=== PATIENT | female | born 1995 | race Caucasian/White ===

== ENCOUNTER 2020-12-12 12:16 | Emergency (ER) | payer BC, SELFPAY ==
[2020-12-12 12:25] VITALS: BP 109/65; PULSE 90; RESP 18; TEMP 37.1; O2SAT 97; BMI 24.7
[2020-12-12 12:56] LABS: Apearance,Urine Cloudy (Clear); Color,Urine Dark Yellow (Yellow); PH,Urine 5.5 (5.0-8.5)
[2020-12-12 12:57] LABS: Bilirubin,Urine Negative (Negative); Blood, Urine 2+ (Negative); Glucose,Urine (UA) Negative (Negative); Ketones,Urine Negative (Negative); Protein,Urine 1+ (Negative); Specific Gravity, Urine 1.015 (1.005-1.030); UTC Leukocyte Esterase,Urine 1+ (Negative); UTC Nitrate,Urine Positive (Negative); Urobilinogen,Urine 0.2 EU/dl (0.2)
--- NOTE | 2020-12-12 13:05 | HMH.EDUTC ---
[facility] [place] Clinical Impression: UTI (urinary tract infection) Qualifiers: Urinary tract infection type: site unspecified Hematuria presence: with hematuria Qualified Code(s): N39.0 - Urinary tract infection, site not specified Disposition: Home, Self-Care Condition on Discharge: Good Instructions: Urinary Tract Infection, DI for Urinary Tract Infection (UTI) Additional Instructions: Drink plenty of fluids. Take tylenol or ibuprofen for pain or fever. Take the medications as directed. Follow up with your regular doctor. GO TO THE ER FOR ANY WORSENING SYMPTOMS The pyridium will make your urine turn orange, this is an expected side effect. It will stain your clothes if it comes into contact with them. Prescriptions: Nitrofurantoin Monohyd/M-Cryst [Macrobid 100 mg Capsule] 100 mg PO BID 5 Days #10 cap Transmission Status: Received by [facility] Phenazopyridine HCl [Pyridium 200mg Tablet] 200 pow PO TID #6 tab Transmission Status: Received by [facility] Ondansetron [Zofran 4mg ODT] 4 mg PO DAILYP PRN #12 tab PRN Reason: Nausea Transmission Status: Received by [facility] Referrals: Provider,Referral, [Primary Care Provider] - Time of Disposition: 13:16 Medical Decision Making - Medical Records Medical records reviewed: No: I reviewed the patient's medical records. - Caio Inquiry Pt receiving controlled substance: No Vital Signs: 12/12/20 12:25 12/12/20 13:18 Temperature 98.8 F 98.8 F Temperature Source Oral Pulse Rate 90 Pulse Rate [Right Brachial] 90 Respiratory Rate 18 18 Blood Pressure 109/65 L Blood Pressure [Right Arm] 109/65 L Blood Pressure Mean [Right Arm] 79 Blood Pressure Source [Right Arm] Automatic Cuff Blood Pressure Position [Right Arm] Sitting 02 Sat by Pulse Oximetry 97 Oxygen Delivery Method Room Air - Lab Data Lab results reviewed: Yes: I reviewed the patient's lab results. Lab Results 12/12/20 12:43: Urine Color Dark yellow, Urine Appearance Cloudy, Urine pH 5.5, Ur Specific [place] 1.015, Urine Protein 1+, Urine Glucose (UA) Negative, Urine Ketones Negative, Urine Blood 2+, Urine Nitrate Positive A, Urine Bilirubin Negative, Urine Urobilinogen 0.2, Ur Leukocyte Esterase 1+ A Orders (Tests/Meds): ORDERS Category Date Time Status Urine Culture Stat Micro 12/12/20 12:30 Received [facility] HPI - General Stated complaint: rt sided back pain, possible kidney infection Time Seen by Provider: 12/12/20 13:05 Mode of Arrival: Ambulatory Source of Information: Patient Limitations: No Limitations Description of Symptoms (Recalled from Triage Doc. by RN): PATIENT C/O RIGHT FLANK/SIDE PAIN THAT STARTED LAST NIGHT AND IS WORSE TODAY HEENT Symptoms (Recalled from RN notes): No Resp Symptoms (Recalled from RN notes): No Skin Symptoms (Recalled from RN notes): No MS Symptoms (Recalled from RN notes): No Functional Status (Recalled from RN notes): WNL - History of Present Illness Provider Complaint: She states that since last night she had had right sided low back pain, burning with urination, and urinary frequency for the past 1 day. She has a history of getting uti's occasionally. - Related Data Previous Rx's Medication Instructions Recorded Nitrofurantoin Monohyd/M-Cryst 100 mg PO BID 5 Days #10 cap 12/12/20 [Macrobid 100 mg Capsule] Ondansetron [Zofran 4mg ODT] 4 mg PO DAILYP PRN #12 tab 12/12/20 Phenazopyridine HCl [Pyridium 200 pow PO TID #6 tab 12/12/20 200mg Tablet] Allergies Allergy/AdvReac Type Severity Reaction Status Date / Time sulfamethoxazole Allergy Verified 12/12/20 13:21 [From Bactrim] trimethoprim [From Bactrim] Allergy Verified 12/12/20 13:21 aspirin AdvReac Verified 12/22/17 08:29 - Worker's Comp Is this a Worker's Comp case?: No [facility] History - Hepatitis A Screen Drug use history?: No High risk sexual behaviors?: No History of sexually transmi
[2020-12-12 13:18] VITALS: BP 109/65; PULSE 90; RESP 18; TEMP 37.1; O2SAT 97
== END 2020-12-12 13:30 | disposition home or self-care (01) ==
PROVIDERS: Emergency Provider Nurse Practitioner Family
DX: N30.00 Acute cystitis without hematuria (principal); B96.20 Unspecified Escherichia coli [E. coli] as the cause of diseases classified elsewhere; Z88.2 Allergy status to sulfonamides
CPT/HCPCS: 81003; 87086; 87088; 87186; 99202; G0463

== ENCOUNTER 2020-12-13 14:16 | Emergency (ER) | payer BC, SELFPAY ==
[2020-12-13 14:18] VITALS: BP 105/73; PULSE 120; RESP 16; TEMP 37.2; O2SAT 95; BMI 24.7
--- NOTE | 2020-12-13 14:35 | HMH.EDGENADL ---
ED Disposition Clinical Impression: UTI (urinary tract infection) Qualifiers: Urinary tract infection type: acute pyelonephritis Qualified Code(s): N10 - Acute pyelonephritis Ovarian cyst Qualifiers: Laterality: right Qualified Code(s): N83.201 - Unspecified ovarian cyst, right side Disposition: Home, Self-Care Condition on Discharge: Good Additional Instructions: Discontinue Macrobid/nitrofurantoin. Take Cipro as directed. Follow with PCP in 1 to 2 days. Return emergency department fever, worsening abdominal pain Prescriptions: Ciprofloxacin HCl [Cipro 500mg Tab] 500 mg PO BID #10 tab Transmission Status: Pending to [facility] Referrals: Provider,Referral, [Primary Care Provider] - Time of Disposition: 17:34 - Critical Care Critical Care Time: No Attestation: On , the high probability of a clinically significant, sudden or life threatening deterioration of the following system(s) required my full and direct attention, intervention and personal management. The time I documented below is in addition to time spent performing reported procedures but includes the following listed in this critical care notation. Medical Decision Making - Medical Records Medical records reviewed: Yes: I reviewed the patient's medical records. - Caio Inquiry Pt receiving controlled substance: No Vital Signs: 12/13/20 14:18 12/13/20 15:00 Temperature 98.9 F Temperature Source Oral Pulse Rate 106 H Pulse Rate [Right] 120 H Respiratory Rate 16 20 Blood Pressure 107/74 L Blood Pressure [Right Arm] 105/73 L Blood Pressure Mean [Right Arm] 83 Blood Pressure Source [Right Arm] Automatic Cuff Blood Pressure Position [Right Arm] Sitting 02 Sat by Pulse Oximetry 95 96 Oxygen Delivery Method Room Air - Lab Data Lab results reviewed: Yes: I reviewed the patient's lab results. Lab Results 12/13/20 14:10: WBC 11.9 H, RBC 4.77, Hgb 14.9, Hct 45.3, MCV 94.9, MCH 31.2, MCHC 32.9, RDW 13.2, Plt Count 208, MPV 9.2, Neut % (Auto) 83.4 H, Lymph % (Auto) 9.4 L, [place] % (Auto) 6.1, Eos % (Auto) 0.7, Baso % (Auto) 0.5, Neut # (Auto) 9.9 H, Lymph # (Auto) 1.1, [place] # (Auto) 0.7, Eos # (Auto) 0.1, Baso # (Auto) 0.1 12/13/20 14:10: Sodium 139, Potassium 3.9, Chloride 101, Carbon Dioxide 29, Anion Gap 12.9, BUN 10, Creatinine 0.60, Estimated Creat Clear 139, Estimated GFR 122, Est GFR ( Amer) 147, Glucose 107 H, Calcium 9.6, Total Bilirubin 0.7, AST 33, ALT 34, Alkaline Phosphatase 108, Total Protein 8.2, Albumin 4.6, Globulin 3.6 H, Albumin/Globulin Ratio 1.3 12/13/20 14:33: Urine HCG, Qual Negative 12/13/20 14:33: Urine Color [place], Urine Appearance Sl cloudy, Urine pH 5.5, Ur Specific [place] 1.020, Urine Protein Trace, Urine Glucose (UA) Negative, Urine Ketones Negative, Urine Blood 2+, Urine Nitrate Positive, Urine Bilirubin Negative, Urine Urobilinogen 1.0, Ur Leukocyte Esterase 1+ A, Urine RBC 5-10, Urine WBC 5-10, Ur Squamous Epith Cells 5-10, Urine Bacteria 1+, Urine Mucus 1+ Result diagrams: 12/13/20 14:10 12/13/20 14:10 Orders (Tests/Meds): ED MEDICATIONS Generic Name Dose Route Start Last Admin Trade Name Freq PRN Reason Stop Dose Admin Ceftriaxone Sodium 1 gm/ 50 mls @ 100 mls/hr 12/13/20 14:45 12/13/20 14:53 Sodium Chloride IV 12/27/20 14:44 100 mls/hr Q24H KRISTY Administration Discontinued Medications Generic Name Dose Route Start Last Admin Trade Name Freq PRN Reason Stop Dose Admin Lactated Ringer's 1,000 mls @ 999 mls/hr 12/13/20 14:45 Lactated Ringer's 1000 Ml Bag IV 12/13/20 15:45 .Q1H1M KRISTY Sodium Chloride 1,000 mls @ 999 mls/hr 12/13/20 14:45 12/13/20 14:52 Sod Chlor 0.9% 1000ml Bag IV 12/13/20 15:45 999 mls/hr .Q1H1M KRISTY Administration Ketorolac Tromethamine 15 mg 12/13/20 14:37 12/13/20 14:52 Ketorolac 30mg/Ml Vial IV 12/13/20 14:38 15 mg ONCE ONE Administration ORDERS Category Date Time Status US transvaginal Stat Exa
[2020-12-13 14:38] LABS: Microscopic, Urine URINE MICROSCOPIC (MICROSCOPIC)
[2020-12-13 14:43] LABS: Appearance,Urine SL CLOUDY (Clear); Bilirubin,Urine Negative (Negative); Blood, Urine 2+ (Negative); Color,Urine ORANGE (Yellow); Glucose,Urine (UA) Negative (Negative); Ketones,Urine Negative (Negative); Leukocyte Esterase,Urine 1+ (Negative); Nitrate,Urine POSITIVE (Negative); PH,Urine 5.5 (5.0-8.5); Protein,Urine TRACE (Negative)
[2020-12-13 14:53] LABS: Basophils # 0.1 K/mm3 (0-0.2); Basophils % 0.5 % (0.1-2.0); Eosinophils # 0.1 K/mm3 (0.0-0.4); Eosinophils % 0.7 % (0.1-12.0); Hematocrit 45.3 % (37.0-47.0); Hemoglobin 14.9 g/dL (12.2-16.2); Lymphocytes # 1.1 K/mm3 (0.7-4.5); Lymphocytes % 9.4 % (10-50); Mean Corpuscular HGB Conc 32.9 g/dL (31.8-35.4); Mean Corpuscular Hemoglobin 31.2 pg (27.0-31.2); Mean Corpuscular Volume 94.9 fl (81-99); Mean Platelet Volume 9.2 fl (7.4-10.4); Monocytes # 0.7 K/mm3 (0.1-1.0); Monocytes % 6.1 % (1.7-9.3); Neutrophils # 9.9 K/mm3 (1.8-7.8); Neutrophils % 83.4 % (37.0-80.0); Platelet Count 208 K/mm3 (142-424); Red Blood Count 4.77 M/mm3 (4.20-5.40); Red Cell Distribution Width 13.2 % (11.5-17.5); White Blood Count 11.9 K/mm3 (4.8-10.8)
[2020-12-13 15:00] VITALS: BP 107/74; PULSE 106; RESP 20; O2SAT 96
[2020-12-13 15:07] LABS: Bacteria,Urine 1+ /lpf; Mucus,Urine 1+ /lpf; Urine Pregnancy, HCG Qual. Negative (Negative)
[2020-12-13 15:13] LABS: Chloride 101 mmol/L (98-107); Potassium 3.9 mmoL/L (3.5-5.1); Sodium 139 mmol/L (136-145)
[2020-12-13 15:16] LABS: Alanine Aminotransferase 34 U/L (12-78); Albumin Level 4.6 g/dl (3.5-5.0); Albumin/Globulin Ratio 1.3 (1.1-1.8); Alkaline Phosphatase 108 U/L (38-126); Anion Gap 12.9 mEq/L (5-15); Aspartate Amino Transferase 33 U/L (14-36); Bilirubin,Total 0.7 mg/dl (0.2-1.3); Blood Urea Nitrogen 10 mg/dl (7-17); Carbon Dioxide 29 mmol/L (22.0-30.0); Creatinine Clearance Estimated 139 mL/min (50-200); Estimated Glomerular Filt Rate 122 ml/min (>60); GFR (African American) 147 ML/MIN (>60); Globulin 3.6 g/dL (1.3-3.2); Total Protein,Serum 8.2 g/dl (6.3-8.2)
[2020-12-13 15:17] LABS: Calcium 9.6 mg/dl (8.4-10.2); Glucose 107 mg/dl (74-100)
--- NOTE | 2020-12-13 15:23 | CT_ITS ---
PROCEDURE: CT ABDOMEN PELVIS WO CON CLINICAL INDICATION: R flank pain Right flank pain with fever COMPARISON: CT ABDPELW/O CT ABD PELVIS W/O CONTRAST from 09/19/2016 TECHNIQUE: Axial images obtained with sagittal and coronal reformats. All CT scans at the facility use one or more dose reduction, viz: automated exposure control, ma/kV adjustment per patient size (including targeted exams where dose is matched to indication, i.e. head), or iterative reconstruction technique. FINDINGS: LOWER THORAX: No acute finding ABDOMEN & PELVIS: Mild fatty liver. Prior cholecystectomy. No biliary dilatation. The spleen, adrenal glands, pancreas, and left kidney has an unremarkable appearance. There is mild prominence of the right renal pelvis. No ureteral calculus evident. No calculi within the urinary bladder. The No intestinal obstruction or free air. There is a mild amount of retained colonic feces. No evidence of appendicitis. There are few scattered small mesenteric lymph nodes. There is a small umbilical hernia containing fat. There is a 5 x 3.3 cm mass in the right adnexal region. This may be ovarian in nature. Pelvic ultrasound may provide further evaluation. Uterus is somewhat enlarged at 10 x 6 cm. There is a left ovarian cyst at 2.6 cm. No cul-de-sac fluid is evident. Pars defect is present at L5 without spondylolisthesis. IMPRESSION: 1. No renal or ureteral calculi. There is minimal prominence of the right renal collecting system 2. 5 x 3 cm right adnexal mass possibly due to enlarged ovary. Suggest correlation with pelvic ultrasound. Ovarian torsion is not excluded. 3. Generous uterus. 2.6 cm left ovarian cyst. Dictated by: Clint Bonner MD 12/13/2020 16:17 Clint Bonner MD in [place] 12/13/2020 16:17
--- NOTE | 2020-12-13 16:54 | US_ITS ---
PROCEDURE INFORMATION: Exam: US Pelvis, Transvaginal Exam date and time: 12/13/2020 4:54 PM Age: 25 years old Clinical indication: Prior surgery; Surgery date: 6+ months; Surgery type: ; Patient HX: Right pelvic pain; Patient had a CT scan today with abnormal finding of right ovary; Additional info: Swollen ovary, R/O torsion TECHNIQUE: Imaging protocol: Real-time transvaginal pelvic ultrasound with image documentation. Transvaginal imaging was used for better evaluation of the endometrium, adnexa, and/or cervix. COMPARISON: TVP US TRANSVAGINAL PREG 05/22/2015 6:16 AM FINDINGS: Uterus/cervix: Appearance within normal limits. The uterus measures 8.6 x 4.3 x 5.8 cm. Endometrium is about 6 mm in thickness. Right adnexa: Right ovary measures 4. 9 x 2.1 x 3.2 cm. This is inclusive of fairly simple appearing cyst measuring 3.1 x 1.2 by 2.2 cm. Normal color flow in the right ovary. Left adnexa: The left ovary has a normal appearance. It measures 2.2 x 1.8 by 2.3 cm. Normal color flow. Intraperitoneal space: No free fluid. IMPRESSION: No acute pathology. A 3.1 cm cyst on the right ovary explains the CT findings.
--- NOTE | 2020-12-13 16:59 | PC.NURSE ---
Pt going to US
[2020-12-13 17:45] VITALS: BP 117/72; PULSE 102; RESP 20; TEMP 37.2; O2SAT 99
== END 2020-12-13 17:45 | disposition home or self-care (01) ==
PROVIDERS: Emergency Provider Family Medicine
DX: N10 Acute pyelonephritis (principal); N83.201 Unspecified ovarian cyst, right side; Z88.2 Allergy status to sulfonamides; Z88.6 Allergy status to analgesic agent; Z87.891 Personal history of nicotine dependence
CPT/HCPCS: 74176; 76830; 80053; 81001; 81025; 85025; 87086; 96365; 96375; 99283

== ENCOUNTER 2022-09-18 21:04 | Emergency (ER) | payer BC, SELFPAY ==
[2022-09-18 21:06] VITALS: BP 127/76; PULSE 74; RESP 18; TEMP 36.9; O2SAT 98; BMI 27.6
[2022-09-18 21:30] VITALS: BP 117/70; PULSE 61; RESP 18; O2SAT 99
--- NOTE | 2022-09-18 21:33 | HMH.EDGENADL ---
Discharge Plan Disposition Patient Disposition: Home, Self-Care Condition: Fair Prescriptions Prescriptions: New erythromycin 5 mg/gram (0.5 %) ointment 1 applic ophthalmic (eye) BID Qty: 50 0RF oxycodone-acetaminophen [Percocet] 5-325 mg tablet 1 tab PO Q6H PRN (Reason: pain) Qty: 7 0RF No Action ciprofloxacin HCl 500 MG tablet 500 mg PO BID Qty: 10 0RF phenazopyridine 200 MG tablet 200 pow PO TID Qty: 6 0RF ondansetron 4 MG tablet,disintegrating 4 mg PO DAILYP PRN (Reason: Nausea) Qty: 12 0RF nitrofurantoin monohyd/m-cryst 100 MG capsule 100 mg PO BID 5 Days Qty: 10 0RF Referrals Follow up/Referrals: Provider,Referral, MD [Primary Care Provider] - See instructions (Please see lucas moreno for further evaluation and treatment) Clinical Impressions Clinical Impression: Photokeratitis of both eyes Stand Alone Forms Stand Alone Forms: Work/School Release Instructions Patient Instructions: DI for Eye Pain Print Language Print Language: Occitan Discharge ED Provider: Chino Camejo General Adult HPI General Chief complaint: Eye Problems Stated complaint: eye pain Time Seen by Provider: 09/18/22 21:33 Mode of Arrival: Wheelchair Limitations: No Limitations Description of Symptoms (Recalled from ER Triage Doc. by RN): pt states that she is having severe pain in her eyes. pt states the pain is a 8/10 and feels like sand paper in her eyes. 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 The patient woke up at 8 PM and reported severe pain in bilateral eyes complaint: eye pain Location: eyes Severity: moderate Quality: burning Relieving factors: none Exacerbating factors: other (Light) Related Data Previous Rx's Medication Instructions Recorded nitrofurantoin 100 mg PO BID 5 days #10 caps 12/12/20 monohydrate/macrocrystals 100 mg capsule ondansetron 4 mg disintegrating 4 mg PO DAILYP PRN Nausea #12 tabs 12/12/20 tablet phenazopyridine 200 mg tablet 200 pow PO TID #6 tabs 12/12/20 ciprofloxacin HCl 500 mg tablet 500 mg PO BID #10 tabs 12/13/20 erythromycin 5 mg/gram (0.5 %) eye 1 applic ophthalmic (eye) BID #50 09/18/22 ointment grams oxycodone-acetaminophen 5 mg-325 1 tab PO Q6H PRN pain #7 tabs 09/18/22 mg tablet (Percocet) Allergies Allergy/AdvReac Type Severity Reaction Status Date / Time sulfamethoxazole Allergy Verified 12/12/20 13:21 [From Bactrim] trimethoprim [From Bactrim] Allergy Verified 12/12/20 13:21 aspirin AdvReac Verified 12/22/17 08:29 PFSH PFS Disclaimer: The information contained in this section may have been updated after the patient was seen, as this information can be updated by other users. Social History Smoking Status: Unknown if ever smoked alcohol intake: never current occupational status: employed Travel in the last 8 weeks: None ROS Obtained: Yes Systems reviewed as appropriate & no additional complaints except as documented Physical Exam General General appearance: alert and in no apparent distress Eye Eye exam: Present EOMI and conjunctival injection Expanded Eye Exam Comment: I did a Colon lamp exam and did not visualize any significant uptake ENT ENT exam: Present normal exam Respiratory Respiratory exam: Absent respiratory distress Cardiovascular Cardiovascular exam: Present other (No edema) Extremities Exam Extremities exam: Present normal inspection Neurological Exam Neurological exam: Absent motor sensory deficit Psychiatric Psychiatric exam: Present normal affect and
--- NOTE | 2022-09-18 21:43 | PC.NURSE ---
Visual Acuity completed 20/40 on both eyes
--- NOTE | 2022-09-18 21:52 | PC.NURSE ---
in room talking with patient at this time.
[2022-09-18 22:00] VITALS: BP 118/64; PULSE 65; RESP 20; O2SAT 98
[2022-09-18 22:30] VITALS: BP 104/59; PULSE 71; RESP 16; O2SAT 97
[2022-09-18 22:43] VITALS: BP 109/63; PULSE 75; RESP 17; TEMP 36.7; O2SAT 99
== END 2022-09-18 22:45 | disposition home or self-care (01) ==
PROVIDERS: Emergency Provider Emergency Medicine
DX: H16.133 Photokeratitis, bilateral (principal)
CPT/HCPCS: 99283; 99284

== ENCOUNTER 2022-10-18 20:37 | Emergency (ER) | payer BC, SELFPAY ==
--- NOTE | 2022-10-18 20:33 | ECG_ITS ---
APPROVED REPORT Exam: Resting ECG HR:70 bpm ECG Measurements Heart Rate 70 AXES DC 138 P 53 QRSd 75 QRS 92 QT 365 T 52 QTc 386 Conclusion SINUS RHYTHM BORDERLINE RIGHT AXIS DEVIATION [QRS AXIS > 90] BORDERLINE ECG UNCONFIRMED REPORT Electronically signed by : Tadeo Huertas MD 10/19/2022 17:18:15
[2022-10-18 20:37] VITALS: BP 113/70; PULSE 75; RESP 16; TEMP 36.6; O2SAT 97; BMI 25.6
[2022-10-18 20:40] VITALS: BP 108/70; PULSE 74; RESP 14; O2SAT 96
[2022-10-18 21:01] VITALS: BP 101/63; PULSE 74; RESP 18; O2SAT 98
--- NOTE | 2022-10-18 21:15 | XR_ITS ---
PROCEDURE INFORMATION: Exam: XR Chest Exam date and time: 10/18/2022 9:19 PM Age: 26 years old Clinical indication: Sternal or substernal pain; Additional info: Chest pain TECHNIQUE: Imaging protocol: Radiologic exam of the chest. Views: 1 view. COMPARISON: CT ABDOMEN PELVIS WO CON 12/13/2020 3:33 PM FINDINGS: Lungs: Unremarkable. No consolidation. Pleural spaces: Unremarkable. No pleural effusion. No pneumothorax. Heart/Mediastinum: Unremarkable. No cardiomegaly. Bones/joints: Unremarkable. Soft tissues: There are bilateral nipple piercings in place. IMPRESSION: No acute findings.
--- NOTE | 2022-10-18 21:18 | HMH.EDGENADL ---
Discharge Plan Disposition Patient Disposition: Home, Self-Care Condition: Good Chief Complaint: Chest Pain Prescriptions Prescriptions: No Action ciprofloxacin HCl 500 MG tablet 500 mg PO BID Qty: 10 0RF erythromycin 5 mg/gram (0.5 %) ointment 1 applic ophthalmic (eye) BID Qty: 50 0RF oxycodone-acetaminophen [Percocet] 5-325 mg tablet 1 tab PO Q6H PRN (Reason: pain) Qty: 7 0RF phenazopyridine 200 MG tablet 200 pow PO TID Qty: 6 0RF ondansetron 4 MG tablet,disintegrating 4 mg PO DAILYP PRN (Reason: Nausea) Qty: 12 0RF nitrofurantoin monohyd/m-cryst 100 MG capsule 100 mg PO BID 5 Days Qty: 10 0RF Referrals Follow up/Referrals: Provider,MD Saulo [Primary Care Provider] - See instructions Tadeo Huertas MD [Staff Physician] - See instructions Activity Restrictions/Add. Instructions Additional Instructions/Restrictions: At this time is felt you are safe to be discharged home. If new or worsening symptoms please do not hesitate to return the emergency department. Please call Dr. Huertas's office to establish care as soon as you are able. Clinical Impressions Clinical Impression: Chest pain, Weakness Discharge ED Provider: Christ Watters General Adult HPI General Chief complaint: Chest Pain Stated complaint: CP Time Seen by Provider: 10/18/22 21:06 Mode of Arrival: Ambulatory Source of Information: Patient Limitations: No Limitations Description of Symptoms (Recalled from ER Triage Doc. by RN): Pt ambulatory to ED via POV. C/O chest pain beginning this AM. 5/10 pain. Sharp pain midsternal causing SOA. Rest does not help. Patient chronic vape user. No caffeine intake in 4 months History of Present Illness HPI narrative: Patient is a 26-year-old female with no pertinent past medical history presents emergency department for evaluation of chest pain and weakness. Onset was acute, occurring approximately 12. Substernal, does not radiate. There is associated global weakness. Denies cough, fevers, sick contacts, dysuria. Patient is on her menstrual cycle and passing clots which is not abnormal for her symptoms her tubes removed . Denies vomiting. No other acute complaints at this time. Related Data Previous Rx's Medication Instructions Recorded nitrofurantoin 100 mg PO BID 5 days #10 caps 12/12/20 monohydrate/macrocrystals 100 mg capsule ondansetron 4 mg disintegrating 4 mg PO DAILYP PRN Nausea #12 tabs 12/12/20 tablet phenazopyridine 200 mg tablet 200 pow PO TID #6 tabs 12/12/20 ciprofloxacin HCl 500 mg tablet 500 mg PO BID #10 tabs 12/13/20 erythromycin 5 mg/gram (0.5 %) eye 1 applic ophthalmic (eye) BID #50 09/18/22 ointment grams oxycodone-acetaminophen 5 mg-325 1 tab PO Q6H PRN pain #7 tabs 09/18/22 mg tablet (Percocet) Allergies Allergy/AdvReac Type Severity Reaction Status Date / Time sulfamethoxazole Allergy Verified 12/12/20 13:21 [From Bactrim] trimethoprim [From Bactrim] Allergy Verified 12/12/20 13:21 aspirin AdvReac Verified 12/22/17 08:29 PFSH PFS Disclaimer: The information contained in this section may have been updated after the patient was seen, as this information can be updated by other users. Social History (Updated 09/18/22 @ 22:54 by Chino Camejo MD) Smoking Status: Current every day smoker tobacco type: cigarettes alcohol intake: never current occupational status: employed Travel in the last 8 weeks: None ROS Obtained: Yes Systems reviewed as appropriate & no additional complaints except as documented Physical Exam General General appearance: alert and in no apparent distress Head Head exam: atraumatic and normocephalic Eye Eye exam: Present PERRL and EOMI ENT ENT exam: Present mucous membranes moist Neck Neck exam: Present normal inspection Chest Chest inspection: Present normal inspection and symmetric chest wall rise Respiratory Respiratory exam: Present normal lung sounds bilaterally; Absent re
[2022-10-18 21:24] LABS: Basophils # 0.1 K/mm3 (0-0.2); Basophils % 0.6 % (0.1-2.0); Eosinophils # 0.1 K/mm3 (0.0-0.4); Eosinophils % 1.2 % (0.1-12.0); Hematocrit 41.9 % (37.0-47.0); Hemoglobin 13.3 g/dL (12.2-16.2); Lymphocytes # 2.5 K/mm3 (0.7-4.5); Lymphocytes % 29.2 % (10-50); Mean Corpuscular HGB Conc 31.8 g/dL (31.8-35.4); Mean Corpuscular Hemoglobin 28.4 pg (27.0-31.2); Mean Corpuscular Volume 89.3 fl (81-99); Mean Platelet Volume 9.2 fl (7.4-10.4); Monocytes # 0.4 K/mm3 (0.1-1.0); Monocytes % 5.3 % (1.7-9.3); Neutrophils # 5.4 K/mm3 (1.8-7.8); Neutrophils % 63.8 % (37.0-80.0); Platelet Count 241 K/mm3 (142-424); Red Blood Count 4.69 M/mm3 (4.20-5.40); Red Cell Distribution Width 14.4 % (11.5-17.5); White Blood Count 8.4 K/mm3 (4.8-10.8)
[2022-10-18 21:25] LABS: Chloride 103 mmol/L (98-107); Potassium 3.9 mmoL/L (3.5-5.1); Sodium 140 mmol/L (136-145)
[2022-10-18 21:28] LABS: Alanine Aminotransferase 44 U/L (12-78); Albumin Level 4.3 g/dl (3.5-5.0); Albumin/Globulin Ratio 1.4 (1.1-1.8); Alkaline Phosphatase 99 U/L (38-126); Anion Gap 14.9 mEq/L (5-15); Aspartate Amino Transferase 37 U/L (14-36); Bilirubin,Total 0.3 mg/dl (0.2-1.3); Blood Urea Nitrogen 11 mg/dl (7-17); Calcium 9.9 mg/dl (8.4-10.2); Carbon Dioxide 26 mmol/L (22.0-30.0); Creatinine Clearance Estimated 122 mL/min (50-200); Estimated Glomerular Filt Rate 101 ml/min (>60); GFR (African American) 122 ML/MIN (>60); Globulin 3.1 g/dL (1.3-3.2); Glucose 119 mg/dl (74-100); Magnesium 1.9 mg/dl (1.6-2.3); Total Protein,Serum 7.4 g/dl (6.3-8.2)
[2022-10-18 21:33] VITALS: BP 104/66; PULSE 80; O2SAT 94
[2022-10-18 21:47] LABS: HCG Qualitative, Serum Negative (Negative)
[2022-10-18 21:48] LABS: Troponin I < 0.01 ng/ml (0.00-0.034)
[2022-10-18 22:18] VITALS: BP 106/70; PULSE 72; RESP 16; TEMP 36.6
== END 2022-10-18 22:23 | disposition home or self-care (01) ==
PROVIDERS: Emergency Provider Emergency Medicine
DX: R07.9 Chest pain, unspecified (principal); R06.02 Shortness of breath; R53.1 Weakness; F17.210 Nicotine dependence, cigarettes, uncomplicated
CPT/HCPCS: 71045; 80053; 83735; 84484; 84703; 85025; 93005; 93041; 99285

== ENCOUNTER → 2022-12-26 23:37 | Outpatient (CLI) | payer BC, SELFPAY ==
[2022-12-26 17:13] LABS: Adenovirus,PCR Not Detected (NotDetected); Coronavirus 229E Not Detected (NotDetected); Coronavirus NL63 Not Detected (NotDetected); Coronavirus OC43 Not Detected (NotDetected); Coronovirus HKU1,PCR Not Detected (NotDetected); Human Metapneumovirus Not Detected (NotDetected); Rhinovirus/Enterovirus Not Detected (NotDetected)
[2022-12-26 17:14] LABS: Coronavirus 19, PCR Not Detected (NotDetected); Influenza A, PCR Not Detected (NotDetected); Influenza AH1, 2009 Not Detected (NotDetected); Influenza AH1, PCR Not Detected (NotDetected); Influenza AH3,PCR Not Detected (NotDetected); Influenza B, PCR Not Detected (NotDetected); Parainfluenza 1, PCR Not Detected (NotDetected); Parainfluenza 2, PCR Not Detected (NotDetected); Parainfluenza 3, PCR Not Detected (NotDetected); Parainfluenza 4, PCR Not Detected (NotDetected); Respiratory Syncytial Virus Not Detected (NotDetected)
== END ==
PROVIDERS: PCP Internal Medicine; Visit Provider Internal Medicine
DX: R05.9 Cough, unspecified (principal); R09.81 Nasal congestion; R51.9 Headache, unspecified
CPT/HCPCS: 87581; 87632; 87635; 87798

== ENCOUNTER 2023-06-19 13:01 | Emergency (ER) | payer BC, SELFPAY ==
[2023-06-19 13:35] VITALS: BP 105/65; PULSE 84; RESP 18; TEMP 36.6; O2SAT 99; BMI 28.5
--- NOTE | 2023-06-19 13:36 | ED_ITS ---
Discharge Plan Disposition Patient Disposition: Home, Self-Care Condition: Good Prescriptions Prescriptions: New azithromycin [Zithromax] 250 mg tablet 250 mg PO UD DOSE PK Qty: 6 0RF Rx Instructions: Take two (2) tablets today, then one (1) tablet days #2 thru #5 [id number] [Bromfed DM] 2-30-10 mg/5 mL Syrup 5 ml PO Q6H PRN (Reason: Cough) Qty: 240 0RF dicyclomine 20 mg tablet 20 mg PO TID PRN (Reason: abdominal pain) Qty: 30 0RF No Action fexofenadine [Allergy Relief (fexofenadine)] 180 mg tablet 180 mg PO DAILY Qty: 30 0RF Referrals Follow up/Referrals: Katherin Morris DO [Primary Care Provider] - See instructions Activity Restrictions/Add. Instructions Additional Instructions/Restrictions: Drink plenty of fluids. Take tylenol or ibuprofen for pain or fever. Take the medications as directed. Follow up with your regular doctor. 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 GO TO THE ER FOR ANY WORSENING SYMPTOMS Clinical Impressions Clinical Impression: Pharyngitis, Sinusitis, Abdominal cramps, Amenorrhea Stand Alone Forms Stand Alone Forms: Work/School Release Instructions Patient Instructions: Sinusitis, DI for Sinusitis Discharge ED Provider: Magdaleno Arita [facility] General Stated complaint: sore throat, stomach pain, no period in 4 mths Time Seen by Provider: 06/19/23 13:36 History of Present Illness Provider Complaint: She states that for the past 3 days she has had sore throat and gi upset. She also states that she has not had period for the past 4 months. She denies because she has history of tubal ligectomy. Related Data Previous Rx's Medication Instructions Recorded fexofenadine 180 mg tablet 180 mg PO DAILY #30 tabs 12/26/22 (Allergy Relief (fexofenadine)) azithromycin 250 mg tablet 250 mg PO UD DOSE PK #6 tabs 06/19/23 (Zithromax) [id number]-[id number]-[id number] 5 ml PO Q6H PRN Cough #240 mL 06/19/23 2 mg-30 mg-10 mg/5 mL oral syrup (Bromfed DM) dicyclomine 20 mg tablet 20 mg PO TID PRN abdominal pain 06/19/23 #30 tabs Allergies Allergy/AdvReac Type Severity Reaction Status Date / Time sulfamethoxazole Allergy Verified 06/19/23 13:48 [From Bactrim] trimethoprim [From Bactrim] Allergy Verified 06/19/23 13:48 aspirin AdvReac Verified 06/19/23 13:48 PFSH [facility] Disclaimer: The information contained in this section may have been updated after the patient was seen, as this information can be updated by other users. Surgical History History of 3 sections History of bilateral salpingectomy Hx of cholecystectomy Family History Other Cancer Social History Smoking Status: Current every day smoker tobacco type: e-cigarettes alcohol intake: never substance use type: denies use current occupational status: unemployed Travel in the last 8 weeks: None ROS Obtained: Yes All systems reviewed & no additional complaints except as documented Constitutional Constitutional: Reports chills and Reports fever(s) Eyes Eyes: Denies eye discharge ENT Ears, Nose, Mouth, and Throat: Reports as per HPI Cardiovascular Cardiovascular: Denies chest pain Respiratory Respiratory: Denies chest congestion and Reports cough Gastrointestinal Gastrointestingal: Reports nausea; Denies abdominal pain, constipation, cramping, diarrhea or vomiting Musculoskeletal Musculoskeletal: Denies arthralgias Integumentary/Breasts Skin/Breast: Denies rash Neurologic Neurologic: Denies paresthesias Physical Exam General General appearance: alert and in no apparent distress Head Head exam: atraumatic, normocephalic and normal inspection Eye Eye exam: Present normal appearance, PERRL and EOMI ENT ENT exam: Present mucous membranes moist and normal external ear exam Expanded ENT Exam TM/Canal exam: Bilateral TM: erythema and bulging Nose exam: Absent sinus tenderness Mouth exam: Present normal external inspection; Absent drooling Teeth exam: Present normal inspection Throat exam: Present tonsillar erythema, tonsillomegaly and tonsillar exudate Neck Neck exam: Present normal inspection, full ROM and trachea midline; Absent tenderness, meningismus or lymphadenopathy Chest Chest inspection: Present normal inspection and symmetric chest wall rise; Absent tenderness Respiratory Respiratory exam: Present normal lung sounds bilaterally; Absent respiratory distress, wheezes, stridor or accessory muscle use Cardiovascular Cardiovascular exam: Present regular rate and normal rhythm; Absent systolic murmur or diastolic murmur Abdominal Exam Abdominal exam: Present soft and normal bowel sounds; Absent distention, tenderness, guarding, rebound or rigidity Extremities Exam Extremities exam: Present normal inspection and normal capillary refill; Absent calf tenderness Back Exam Back exam: Present normal inspection and full ROM; Absent tenderness, CVA tenderness (R) or CVA tenderness (L) Neurological Exam Neurological exam: Present alert, oriented X3 and CN II-XII intact Psychiatric Psychiatric exam: Present normal affect and normal mood Skin Skin exam: Present warm, dry, intact and normal color Medical Decision Making Medical Records Medical records reviewed: No I reviewed the patient's medical records. Caio Padilla Pt receiving controlled substance: No Lab Data Lab results reviewed: Yes I reviewed the patient's lab results. 06/19/23 14:23 06/19/23 14:23
[2023-06-19 14:07] LABS: UTC Pregnancy Test, Urine Negative (Negative)
[2023-06-19 14:08] LABS: UTC Influenza A Antigen Negative (Negative); UTC Influenza B Antigen Negative (Negative); UTC Strep Screen (Rapid) Negative (Negative)
--- NOTE | 2023-06-19 14:25 | PC.NURSE ---
Sent blood to lab via tube
[2023-06-19 14:33] LABS: Basophils # 0.1 K/mm3 (0-0.2); Basophils % 1.6 % (0.1-2.0); Eosinophils # 0.2 K/mm3 (0.0-0.4); Eosinophils % 2.2 % (0.1-12.0); Hemoglobin 15.2 g/dL (12.2-16.2); Lymphocytes % 25.5 % (10-50); Mean Corpuscular HGB Conc 31.6 g/dL (31.8-35.4); Mean Corpuscular Hemoglobin 30.1 pg (27.0-31.2); Mean Corpuscular Volume 95.5 fl (81-99); Monocytes # 0.5 K/mm3 (0.1-1.0); Monocytes % 6.6 % (1.7-9.3); Neutrophils # 5.1 K/mm3 (1.8-7.8); Neutrophils % 64.1 % (37.0-80.0); Platelet Count 220 K/mm3 (142-424); Red Blood Count 5.03 M/mm3 (4.20-5.40); Red Cell Distribution Width 13.9 % (11.5-17.5)
[2023-06-19 14:37] LABS: Chloride 105 mmol/L (98-107); Sodium 139 mmol/L (136-145)
[2023-06-19 14:40] LABS: Alanine Aminotransferase 73 U/L (12-78); Alkaline Phosphatase 88 U/L (38-126); Amylase 90 U/L (30-110); Aspartate Amino Transferase 62 U/L (14-36); Bilirubin,Total 0.7 mg/dl (0.2-1.3); Blood Urea Nitrogen 9 mg/dl (7-17); Calcium 9.9 mg/dl (8.4-10.2); Carbon Dioxide 28 mmol/L (22.0-30.0); Creatinine Clearance Estimated 153 mL/min (50-200); Estimated Glomerular Filt Rate 120 ml/min (>60); GFR (African American) 145 ML/MIN (>60); Glucose 125 mg/dl (74-100); Lipase 51 U/L (23-300)
[2023-06-19 14:41] LABS: Albumin Level 4.4 g/dl (3.5-5.0); Albumin/Globulin Ratio 1.3 (1.1-1.8); Globulin 3.3 g/dL (1.3-3.2); Total Protein,Serum 7.7 g/dl (6.3-8.2)
[2023-06-19 15:21] LABS: HCG Qualitative, Serum Negative (Negative)
[2023-06-19 15:56] VITALS: BP 105/65; PULSE 84; RESP 18; TEMP 36.6; O2SAT 99
== END 2023-06-19 15:56 | disposition home or self-care (01) ==
PROVIDERS: Emergency Provider Nurse Practitioner Family; PCP Student in an Organized Health Care Education/Training Program
DX: J02.9 Acute pharyngitis, unspecified (principal); R10.819 Abdominal tenderness, unspecified site; J01.90 Acute sinusitis, unspecified; R11.0 Nausea; N91.2 Amenorrhea, unspecified; F17.290 Nicotine dependence, other tobacco product, uncomplicated
CPT/HCPCS: 80053; 81025; 82150; 83690; 84703; 85025; 87804; 87880; 99212; 99214; G0463

== ENCOUNTER 2023-07-03 16:58 | Outpatient (CLI) | payer BC, SELFPAY ==
[2023-07-03 13:36] LABS: Hemoglobin A1C 5.7 % (4.0-6.0)
[2023-07-03 13:44] LABS: Free T4 (Free Thyroxine) 0.66 ng/dl (0.78-2.19)
[2023-07-03 14:56] LABS: Thyroid Stimulating Hormone 4.67 uIU/mL (0.465-4.68)
[2023-07-04 10:42] LABS: HIV Screen 4th Generation wRfx Non Reactive (Non Reactive)
[2023-07-04 12:12] LABS: Rapid Plasma Reagin Ab Titer Non Reactive titer (NonRea<1:1)
[2023-07-05 10:10] LABS: Hepatitis B Surface Antigen Negative; Hepatitis C Antibody Non Reactive
== END 2023-07-03 23:59 | disposition home or self-care (01) ==
LOC: LAB.DROPOF 16:59
PROVIDERS: Obstetrics & Gynecology; PCP Internal Medicine; Visit Provider Internal Medicine
DX: R53.83 Other fatigue (principal); R73.9 Hyperglycemia, unspecified; Z11.3 Encounter for screening for infections with a predominantly sexual mode of transmission; Z13.1 Encounter for screening for diabetes mellitus
CPT/HCPCS: 83036; 84439; 84443; 86593; 86703; 87340; 87380; G0432

== ENCOUNTER 2023-10-09 02:28 | Emergency (ER) | payer BC, SELFPAY ==
[2023-10-09 02:30] VITALS: BP 143/116; PULSE 71; RESP 18; TEMP 36.6; O2SAT 97; BMI 23.6
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
[2023-10-09] MEDS: cephALEXin 500MG CAPSULE 500 MG PO (02:46)
[2023-10-09] MEDS: BACITRACIN OINT 0.9GM UDP 1 EACH TP (02:46)
[2023-10-09 02:55] VITALS: BP 143/116; PULSE 71; RESP 18; TEMP 36.6; O2SAT 97
== END 2023-10-09 02:57 | disposition home or self-care (01) ==
LOC: ER 02:47
PROVIDERS: Emergency Provider Emergency Medicine; PCP Internal Medicine
DX: T22.112A Burn of first degree of left forearm, initial encounter (principal); X15.8XXA Contact with other hot household appliances, initial encounter
CPT/HCPCS: 99283

== ENCOUNTER 2023-10-10 16:50 | Outpatient (CLI) | payer BC, SELFPAY ==
[2023-10-10 16:41] LABS: Microscopic, Urine URINE MICROSCOPIC (MICROSCOPIC)
[2023-10-10 16:59] LABS: Basophils # 0.1 K/mm3 (0-0.2); Eosinophils # 0.1 K/mm3 (0.0-0.4); Eosinophils % 1.2 % (0.1-12.0); Hematocrit 43.6 % (37.0-47.0); Hemoglobin 14.5 g/dL (12.2-16.2); Lymphocytes # 2.3 K/mm3 (0.7-4.5); Lymphocytes % 30.8 % (10-50); Mean Corpuscular HGB Conc 33.3 g/dL (31.8-35.4); Mean Corpuscular Hemoglobin 31.2 pg (27.0-31.2); Mean Corpuscular Volume 93.6 fl (81-99); Monocytes # 0.5 K/mm3 (0.1-1.0); Monocytes % 6.3 % (1.7-9.3); Neutrophils # 4.6 K/mm3 (1.8-7.8); Neutrophils % 60.6 % (37.0-80.0); Platelet Count 221 K/mm3 (142-424); Red Blood Count 4.66 M/mm3 (4.20-5.40); Red Cell Distribution Width 13.7 % (11.5-17.5); White Blood Count 7.6 K/mm3 (4.8-10.8)
[2023-10-10 17:06] LABS: Appearance,Urine CLEAR (Clear); Bilirubin,Urine Negative (Negative); Blood, Urine 2+ (Negative); Color,Urine YELLOW (Yellow); Glucose,Urine (UA) Negative (Negative); Ketones,Urine Negative (Negative); Leukocyte Esterase,Urine Negative (Negative); Nitrate,Urine Negative (Negative); Protein,Urine Negative (Negative); Specific Gravity, Urine >= 1.030 (1.005-1.030); Urobilinogen,Urine 0.2 EU/dl (0.2)
[2023-10-10 17:18] LABS: Bacteria,Urine 2+ /lpf; Mucus,Urine 1+ /lpf
[2023-10-10 17:29] LABS: Alanine Aminotransferase 69 U/L (12-78); Albumin Level 4.5 g/dl (3.5-5.0); Albumin/Globulin Ratio 1.5 (1.1-1.8); Alkaline Phosphatase 85 U/L (38-126); Anion Gap 13.1 mEq/L (5-15); Aspartate Amino Transferase 48 U/L (14-36); Bilirubin,Total 0.5 mg/dl (0.2-1.3); Blood Urea Nitrogen 11 mg/dl (7-17); Calcium 9.4 mg/dl (8.4-10.2); Carbon Dioxide 24 mmol/L (22.0-30.0); Chloride 106 mmol/L (98-107); Chol/HDL Ratio 4.8 (1-3.5); Cholesterol 177 mg/dl (140-200); Estimated Glomerular Filt Rate 120 ml/min (>60); GFR (African American) 145 ML/MIN (>60); Globulin 3.1 g/dL (1.3-3.2); Glucose 96 mg/dl (74-100); HDL Cholesterol 37 mg/dl (40-60); Potassium 4.1 mmoL/L (3.5-5.1); Sodium 139 mmol/L (136-145); Total Protein,Serum 7.6 g/dl (6.3-8.2); Triglycerides 148 mg/dl (30-150); VLDL Cholesterol 30 mg/dL (0-40)
[2023-10-10 17:31] LABS: 25-OH Vitamin D, Total 42.5 ng/mL (30-100)
[2023-10-10 17:40] LABS: Direct LDL Cholesterol 112.23 mg/dL (100-129)
[2023-10-10 17:45] LABS: Free T4 (Free Thyroxine) 0.72 ng/dl (0.78-2.19)
[2023-10-10 18:00] LABS: Thyroid Stimulating Hormone 6.49 uIU/mL (0.465-4.68)
[2023-10-10 18:19] LABS: Vitamin B12 744 pg/mL (239-931)
[2023-10-10 21:30] LABS: Iron 80 ug/dL (37-170)
[2023-10-10 21:44] LABS: Total Iron Binding Capacity 308 ug/dL (265-497)
[2023-10-10 22:04] LABS: Ferritin 43.6 ng/ml (6.24-137)
[2023-10-10 22:29] LABS: Hemoglobin A1C 5.4 % (4.0-6.0)
[2023-10-12 12:12] LABS: Thyroid Peroxidase Antibodies 19 IU/mL (0-34)
== END 2023-10-10 23:59 | disposition home or self-care (01) ==
LOC: LAB.DROPOF 16:51
PROVIDERS: PCP Nurse Practitioner Family; Visit Provider Nurse Practitioner Family
DX: R53.83 Other fatigue (principal); Z13.220 Encounter for screening for lipoid disorders; R73.03 Prediabetes; E03.9 Hypothyroidism, unspecified; N92.6 Irregular menstruation, unspecified
CPT/HCPCS: 80050; 80053; 80061; 81001; 82306; 82607; 82728; 83036; 83540; 83550; 84439; 84443; 85025; 86376; 87086

== ENCOUNTER 2023-10-18 09:41 | Outpatient (CLI) | payer BC, SELFPAY ==
--- NOTE | 2023-10-18 09:46 | US_ITS ---
FINAL REPORT TECHNIQUE: Sonographic images of the thyroid were obtained. CLINICAL HISTORY: dysphagia, hypothyroid FINDINGS: The right lobe of the thyroid measures 50 mm. The left lobe of the thyroid measures 42 mm. The isthmus measures 4 mm. There is a heterogeneous echotexture to the thyroid with multinodular appearance, may represent thyroiditis or goiter. No well-defined separate mass or nodule is identified. IMPRESSION: Findings may represent thyroiditis versus goiter. Reviewed, Interpreted and Dictated by Shun Hurd III, MD Transcribed by Susanna Obando Authenticated and [facility]
--- NOTE | 2023-10-18 09:46 | XR_ITS ---
FINAL REPORT CLINICAL HISTORY: left shoulder pain FINDINGS: Left shoulder Three views were obtained. There is no acute fracture or dislocation. The joint spaces appear normal. No soft tissue abnormality is identified. IMPRESSION: No acute process. Reviewed, Interpreted and Dictated by Shun Hurd III, MD Transcribed by Susanna Obando Authenticated and [facility]
--- NOTE | 2023-10-18 09:46 | XR_ITS ---
FINAL REPORT CLINICAL HISTORY: cervical pain FINDINGS: CERVICAL SPINE Five views demonstrate no acute fracture. The disc spaces are well preserved. There is straightening of the cervical spine which is nonspecific but may be due to positioning or muscle spasm. The alignment is normal. IMPRESSION: No acute process. Reviewed, Interpreted and Dictated by Shun Hurd III, MD Transcribed by Susanna Obando Authenticated and [facility]
[2023-10-18 11:36] LABS: HCG,Quantitative < 2 mIU/ml (0-5.42)
[2023-10-19 08:55] LABS: Prolactin 7.6 ng/mL (4.8-33.4)
== END 2023-10-18 23:59 | disposition home or self-care (01) ==
LOC: RAD 09:41
PROVIDERS: Obstetrics & Gynecology; PCP Nurse Practitioner Family; Visit Provider Nurse Practitioner Family
DX: M25.512 Pain in left shoulder (principal); M54.2 Cervicalgia; R13.10 Dysphagia, unspecified; E03.9 Hypothyroidism, unspecified; N91.1 Secondary amenorrhea
CPT/HCPCS: 36415; 72040; 73030; 76536; 84146; 84702

== ENCOUNTER 2023-11-21 14:06 | Outpatient (CLI) | payer BC, SELFPAY ==
--- NOTE | 2023-11-21 14:11 | XR_ITS ---
FINAL REPORT CLINICAL HISTORY: dyspnea chest pain started yesterday COMPARISON: 10/18/2022 FINDINGS: Two views of the chest were obtained. The heart size and pulmonary vascularity are within normal limits. The mediastinum is normal. No acute pulmonary abnormality is identified. There is no pneumothorax. The bony thorax is intact. IMPRESSION: No active cardiopulmonary disease. Reviewed, Interpreted and Dictated by Shun Hurd III, MD Transcribed by Susanna Obando Authenticated and [facility]
[2023-11-21 17:52] LABS: Thyroid Stimulating Hormone 5.69 uIU/mL (0.465-4.68)
== END 2023-11-21 23:59 | disposition home or self-care (01) ==
LOC: RAD 14:08
PROVIDERS: PCP Nurse Practitioner Family; Visit Provider Nurse Practitioner Family
DX: R06.00 Dyspnea, unspecified (principal); E03.9 Hypothyroidism, unspecified; N39.0 Urinary tract infection, site not specified
CPT/HCPCS: 71046; 84439; 84443; 87086

== ENCOUNTER 2023-11-22 19:09 | Emergency (ER) | payer BC, SELFPAY ==
--- NOTE | 2023-11-22 19:07 | ECG_ITS ---
APPROVED REPORT Exam: Resting ECG HR:71 bpm ECG Measurements Heart Rate 71 AXES TN 131 P 41 QRSd 81 QRS 92 QT 366 T 18 QTc 388 Conclusion SINUS RHYTHM BORDERLINE RIGHT AXIS DEVIATION [QRS AXIS > 90] BORDERLINE ECG UNCONFIRMED REPORT Electronically signed by : STEVE SHAFER, 11/25/2023 04:29:46
[2023-11-22 19:10] VITALS: BP 121/75; PULSE 68; RESP 18; TEMP 36.9; O2SAT 95; BMI 28.1
[2023-11-22 19:15] VITALS: PULSE 68
[2023-11-22 19:30] VITALS: BP 126/77; PULSE 82; RESP 23; O2SAT 98
--- NOTE | 2023-11-22 19:40 | XR_ITS ---
PROCEDURE INFORMATION: Exam: XR Chest Exam date and time: 11/22/2023 7:41 PM Age: 28 years old Clinical indication: Dyspnea TECHNIQUE: Imaging protocol: Radiologic exam of the chest. Views: 1 view. COMPARISON: CR XR CHEST 2V 11/21/2023 2:16 PM FINDINGS: Lungs: Unremarkable. No consolidation. Pleural spaces: Unremarkable. No pleural effusion. No pneumothorax. Heart/Mediastinum: Unremarkable. No cardiomegaly. Bones/joints: Unremarkable. IMPRESSION: No acute findings.
--- NOTE | 2023-11-22 19:42 | HMH.EDCP ---
Discharge Plan Disposition Patient Disposition: Home, Self-Care Prescriptions Prescriptions: No Action nitrofurantoin monohyd/m-cryst [Macrobid] 100 mg capsule 100 mg PO Q12H 7 Days Qty: 14 0RF Rx Instructions: must administer with a meal/food famotidine 20 mg tablet See Rx Instructions .ROUTE .COMPLEX Qty: 180 0RF Dose Instruction: TAKE 1 TABLET BY MOUTH TWICE A DAY Rx Instructions: TAKE 1 TABLET BY MOUTH TWICE A DAY levothyroxine 25 mcg tablet 25 mcg PO QAM Qty: 90 0RF Referrals Follow up/Referrals: Cr Orellana DO [Primary Care Provider] - See instructions Activity Restrictions/Add. Instructions Additional Instructions/Restrictions: No evidence of acute cardiopulmonary emergency please follow with your primary care doctor may take Tylenol and ibuprofen as needed for your symptoms and return with any significant worsening or different symptoms. Clinical Impressions Clinical Impression: Atypical chest pain Print Language Print Language: Slovenian Discharge ED Provider: Pollo Harrell [facility] General Chief Complaint: Chest Pain Stated Complaint: chest pain Time Seen by Provider: 11/22/23 19:11 Mode of Arrival: Ambulatory Source of Information: Patient Limitations: No Limitations Description of Symptoms (Recalled from ER Triage Doc. by RN): pt reports two days ago she began having chest tightness and numbness in her left arm, she was seen to get xrays yesterday but has no recieved her results yet. pt states the chest tightness has not resolved. History of Present Illness HPI narrative: Patient is a 28-year-old previously healthy female presents today with left anterior chest discomfort. Located in the superior lateral aspect of her chest no radiation no exertional symptoms she does states she has had some very mild dyspnea no pleuritic component to this no positional aspect no nausea associated with this. No history of coronary artery disease pulmonary embolism DVT etc. no lower extremity swelling hemoptysis fevers chills cough etc. She states that she has been trying to stop vaping and feels as though her body may be stressed out from this. Symptoms have been ongoing for more than 48 hours. Related Data Previous Rx's ?Medication ?Instructions ?Recorded famotidine 20 mg tablet See Rx Instructions .Route 10/17/23 .COMPLEX #180 tabs nitrofurantoin 100 mg PO Q12H 7 days #14 caps 11/21/23 monohydrate/macrocrystals 100 mg capsule (Macrobid) levothyroxine 25 mcg tablet 25 mcg PO QAM #90 tabs 11/22/23 Allergies Allergy/AdvReac Type Severity Reaction Status Date / Time sulfamethoxazole Allergy Verified 11/21/23 13:12 [From Bactrim] trimethoprim [From Bactrim] Allergy Verified 11/21/23 13:12 aspirin AdvReac Verified 11/21/23 13:12 [facility] Disclaimer: The information contained in this section may have been updated after the patient was seen, as this information can be updated by other users. Medical History Chest pain Weakness Pharyngitis Upper respiratory infection Abdominal cramps Sinusitis Fatigue Surgical History History of bilateral salpingectomy Hx of cholecystectomy History of 3 sections Family History Other Cancer Social History Smoking Status: Current every day smoker tobacco type: e-cigarettes alcohol intake: never substance use type: denies use current occupational status: unemployed Travel in the last 8 weeks: None ROS Obtained: Yes All systems reviewed & no additional complaints except as documented Physical Exam General General appearance: alert and in no apparent distress Respiratory Respiratory exam: Present normal lung sounds bilaterally; Absent respiratory distress Cardiovascular Cardiovascular exam: Present regular rate and normal rhythm Neurological Exam Neurological exam: Present alert and oriented X3 HEART Score HEART Score HEART Score assessment performed?: Yes History (anamnesis): Slightly suspicious ECG: Non-specific disturbance Age: <45 years Risk factors: No known risk factors Troponin: </= normal limit HEART Score: 1 Critical Care Critical Care Time Critical Care Time: No Medical Decision Making Caio Inquiry Pt receiving controlled substance: No Vital Signs Vital Signs: 11/22/23 19:10 11/22/23 19:15 11/22/23 19:30 Temperature 98.4 F Temperature Source Oral Pulse Rate 68 82 Pulse Rate [Right] 68 Respiratory Rate 18 23 Blood Pressure 126/77 Blood Pressure [Right Arm] 121/75 Blood Pressure Mean [Right Arm] 90 02 Sat by Pulse Oximetry 95 98 Oxygen Delivery Method Room Air 11/22/23 20:00 11/22/23 20:30 Temperature Temperature Source Pulse Rate 67 68 Pulse Rate [Right] Respiratory Rate 24 21 Blood Pressure 100/70 L 116/64 Blood Pressure [Right Arm] Blood Pressure Mean [Right Arm] 02 Sat by Pulse Oximetry 95 94 L Oxygen Delivery Method Lab Data Lab results reviewed: Yes I reviewed the patient's lab results. Labs: Lab Results 11/22/23 19:12: WBC 9.6, RBC 4.72, Hgb 14.2, Hct 45.4, MCV 96.2, MCH 30.2, MCHC 31.4 L, RDW 13.9, Plt Count 230, MPV 9.1, Neut % (Auto) 62.4, Lymph % (Auto) 28.7, [place] % (Auto) 7.3, Eos % (Auto) 0.7, Baso % (Auto) 0.8, Neut # (Auto) 6.0, Lymph # (Auto) 2.8, [place] # (Auto) 0.7, Eos # (Auto) 0.1, Baso # (Auto) 0.1, D-Dimer 0.25, Sodium 139, Potassium 3.8, Chloride 105, Carbon Dioxide 28, Anion Gap 9.8, BUN 11, Creatinine 0.60, Estimated Creat Clear 149, Estimated GFR 119, Est GFR ( Amer) 144, Glucose 72 L, Calcium 9.1, Total Bilirubin 0.5, AST 42 H, ALT 60, Alkaline Phosphatase 94, Troponin I < 0.01, Total Protein 7.7, Albumin 4.6, Globulin 3.1, Albumin/Globulin Ratio 1.5 11/22/23 19:12 11/22/23 19:12 Response Orders (Tests/Meds): ED MEDICATIONS Discontinued Medications Generic Name Dose Route Start Last Admin Trade Name Freq PRN Reason Stop Dose Admin Ketorolac Tromethamine 15 mg 11/22/23 19:39 11/22/23 19:48 Ketorolac 30mg/Ml Vial IV 11/22/23 19:40 15 mg ONCE ONE Administration ORDERS Category Date Time Status CXR --portable [XR chest portable] Stat Exams 11/22/23 19:40 Completed CBC w/Auto Diff [Complete Blood Count Auto Diff] Stat Lab 11/22/23 19:12 Completed CMP [Comprehensive Metabolic Panel] Stat Lab 11/22/23 19:12 Completed D-Dimer Stat Lab 11/22/23 19:12 Completed Trop I [Troponin I] Stat Lab 11/22/23 19:12 Completed Troponin I Q3H Lab 11/22/23 22:45 Ordered Troponin I Q3H Lab 11/23/23 01:45 Ordered ECG Data Tracing #1: Attestation: I reviewed this ECG and interpreted as documented below: ECG Narrative: Ventricular rate of 71 no acute ischemic changes noted indeterminate axis no significant duction abnormalities noted borderline right axis deviation MDM Narrative Medical Decision Narrative: 28-year-old well-appearing female presents today with mild dyspnea and left anterior chest discomfort. EKG is unremarkable does have borderline right axis deviation. Will obtain a D-dimer to rule out pulmonary embolism use years criteria with a cutoff of 1.[address] a CT PE. Chest x-ray and single troponin will be performed and no serial troponins will be needed given the onset of her symptoms being 48 hours ago. Chest x-ray performed to person interpreted which shows no acute cardiopulmonary emergency. Labs unremarkable D-dimer less than 1 [place] undetectably low reassessment patient feeling somewhat better no emergent medical condition events she was discharged in stable condition with advised to follow-up with primary care doctor.
[2023-11-22 19:45] LABS: Basophils # 0.1 K/mm3 (0-0.2); Basophils % 0.8 % (0.1-2.0); Eosinophils # 0.1 K/mm3 (0.0-0.4); Eosinophils % 0.7 % (0.1-12.0); Hematocrit 45.4 % (37.0-47.0); Hemoglobin 14.2 g/dL (12.2-16.2); Lymphocytes # 2.8 K/mm3 (0.7-4.5); Lymphocytes % 28.7 % (10-50); Mean Corpuscular HGB Conc 31.4 g/dL (31.8-35.4); Mean Corpuscular Hemoglobin 30.2 pg (27.0-31.2); Mean Corpuscular Volume 96.2 fl (81-99); Mean Platelet Volume 9.1 fl (7.4-10.4); Monocytes # 0.7 K/mm3 (0.1-1.0); Monocytes % 7.3 % (1.7-9.3); Neutrophils % 62.4 % (37.0-80.0); Platelet Count 230 K/mm3 (142-424); Red Blood Count 4.72 M/mm3 (4.20-5.40); Red Cell Distribution Width 13.9 % (11.5-17.5); White Blood Count 9.6 K/mm3 (4.8-10.8)
[2023-11-22] MEDS: KETOROLAC 30MG/ML VIAL 15 MG IV (19:48)
[2023-11-22 20:00] VITALS: BP 100/70; PULSE 67; RESP 24; O2SAT 95
[2023-11-22 20:01] LABS: D-Dimer 0.25 ug/mL (0.0-0.5)
[2023-11-22 20:16] LABS: Albumin Level 4.6 g/dl (3.5-5.0); Chloride 105 mmol/L (98-107)
[2023-11-22 20:17] LABS: Potassium 3.8 mmoL/L (3.5-5.1); Sodium 139 mmol/L (136-145)
[2023-11-22 20:19] LABS: Anion Gap 9.8 mEq/L (5-15); Blood Urea Nitrogen 11 mg/dl (7-17); Carbon Dioxide 28 mmol/L (22.0-30.0); Creatinine Clearance Estimated 149 mL/min (50-200); Estimated Glomerular Filt Rate 119 ml/min (>60); GFR (African American) 144 ML/MIN (>60)
[2023-11-22 20:20] LABS: Alanine Aminotransferase 60 U/L (12-78); Albumin/Globulin Ratio 1.5 (1.1-1.8); Alkaline Phosphatase 94 U/L (38-126); Aspartate Amino Transferase 42 U/L (14-36); Bilirubin,Total 0.5 mg/dl (0.2-1.3); Calcium 9.1 mg/dl (8.4-10.2); Globulin 3.1 g/dL (1.3-3.2); Glucose 72 mg/dl (74-100); Total Protein,Serum 7.7 g/dl (6.3-8.2)
[2023-11-22 20:30] VITALS: BP 116/64; PULSE 68; RESP 21; O2SAT 94
[2023-11-22 20:36] LABS: Troponin I < 0.01 ng/ml (0.00-0.034)
[2023-11-22 20:42] VITALS: BP 116/64; PULSE 67; RESP 22; TEMP 36.9; O2SAT 97
== END 2023-11-22 20:48 | disposition home or self-care (01) ==
PROVIDERS: Emergency Provider Student in an Organized Health Care Education/Training Program; PCP Internal Medicine
DX: R07.89 Other chest pain (principal); R06.02 Shortness of breath
CPT/HCPCS: 71045; 80053; 84484; 85025; 85378; 93005; 96374; 99284; J1885

== ENCOUNTER → 2024-01-10 06:13 | Outpatient (CLI) | payer BC, SELFPAY | LOC: SL 06:14 | PROVIDERS: PCP Nurse Practitioner Family; Visit Provider Nurse Practitioner Family | DX: R06.83 Snoring (principal); R53.83 Other fatigue; R06.00 Dyspnea, unspecified | CPT/HCPCS: G0399 ==

== ENCOUNTER 2024-02-10 13:59 | Outpatient (CLI) | payer BC, SELFPAY ==
[2024-02-10 17:38] LABS: Coronavirus 19, PCR Not Detected (NotDetected); Influenza A, PCR Not Detected (NotDetected); Influenza B, PCR Not Detected (NotDetected)
== END 2024-02-10 23:59 | disposition home or self-care (01) ==
LOC: LAB.DROPOF 02-11 15:25
PROVIDERS: PCP Nurse Practitioner; Visit Provider Nurse Practitioner
DX: J06.9 Acute upper respiratory infection, unspecified (principal)
CPT/HCPCS: 87636

== ENCOUNTER 2024-02-26 12:53 | Outpatient (CLI) | payer BC, SELFPAY ==
--- NOTE | 2024-02-26 12:54 | US_ITS ---
PROCEDURE INFORMATION: Exam: US Left Breast, Complete Exam date and time: 02/26/2024 12:57 PM Age: 28 years old Clinical indication: Palpable abnormality in the left lower inner quadrant TECHNIQUE: Imaging protocol: Complete ultrasound of all four quadrants of the left breast and the retroareolar regions, including ultrasound of the axilla when performed. COMPARISON: No relevant prior studies available. FINDINGS: ULTRASOUND: Breast ultrasound findings: Sonographic images of the left breast including the retroareolar region, all 4 quadrants and the axilla demonstrates a questionable isoechoic subcutaneous mass in the left 7 o'clock axis 8 cm from the nipple where the patient reports a palpable abnormality. It is possible the finding represents a prominent fat lobule. The area of interest measures 1.9 x 1.6 x 1.4 cm. Incidental 0.5 cm cyst in the left upper inner quadrant. No architectural distortion or acoustical shadowing. No skin thickening or axillary adenopathy. IMPRESSION: Diagnostic left mammogram is recommended to further assess a questionable solid mass in the left lower inner quadrant ASSESSMENT: BI-RADS Category 0: Incomplete- Need Additional Imaging Evaluation
== END 2024-02-26 23:59 | disposition home or self-care (01) ==
LOC: RAD 12:54
PROVIDERS: PCP Nurse Practitioner; Visit Provider Obstetrics & Gynecology
DX: N63.24 Unspecified lump in the left breast, lower inner quadrant (principal); N64.59 Other signs and symptoms in breast
CPT/HCPCS: 76641

== ENCOUNTER 2024-03-26 15:22 | Outpatient (CLI) | payer MEDICAID, SELFPAY ==
--- NOTE | 2024-03-26 15:23 | MM_ITS ---
PROCEDURE INFORMATION: Exam: Left Diagnostic Breast Tomosynthesis Exam date and time: 03/26/2024 3:07 PM Age: 28 years old Clinical indication: Left breast pain; Left breast palpable lump TECHNIQUE: Imaging protocol: Left Diagnostic tomosynthesis and 2D mammography including computer-aided detection (CAD) when performed. Unilateral or bilateral exam. COMPARISON: US BREAST LT COMPLETE 02/26/2024 12:57 PM FINDINGS: MAMMOGRAPHY: Breast composition: The breasts are almost entirely fatty. Breast mammogram findings: There is no stellate mass, architectural distortion or suspicious microcalcifications to suggest malignancy. No skin thickening or axillary adenopathy. A skin marker was placed over area of palpable concern in the left lower inner quadrant. Almost exclusively normal adipose tissue is noted. The finding on sonography corresponds to a prominent fat lobule. IMPRESSION: No mammographic evidence of malignancy. Palpable abnormality in the left lower quadrant corresponds to normal adipose tissue.Further evaluation of a palpable abnormality should be based on clinical grounds regardless of radiographic findings or lack thereof..Annual bilateral mammographic screening is recommended to commence at the age of 40 unless otherwise clinically indicated. ASSESSMENT: BI-RADS Category 1: Negative.
== END 2024-03-26 23:59 | disposition home or self-care (01) ==
LOC: RAD 15:23
PROVIDERS: PCP Obstetrics & Gynecology; Visit Provider Obstetrics & Gynecology
DX: N64.4 Mastodynia (principal)
CPT/HCPCS: 77061; 77065; G0279

== ENCOUNTER 2024-06-03 14:03 | Outpatient (CLI) | payer MEDICAID, SELFPAY ==
[2024-06-03 19:28] LABS: Basophils # 0.1 K/mm3 (0-0.2); Basophils % 0.9 % (0.1-2.0); Eosinophils # 0.1 K/mm3 (0.0-0.4); Eosinophils % 0.7 % (0.1-12.0); Hematocrit 42.3 % (37.0-47.0); Hemoglobin 13.9 g/dL (12.2-16.2); Lymphocytes # 2.8 K/mm3 (0.7-4.5); Lymphocytes % 27.9 % (10-50); Mean Corpuscular HGB Conc 32.9 g/dL (31.8-35.4); Mean Corpuscular Hemoglobin 29.8 pg (27.0-31.2); Mean Corpuscular Volume 90.8 fl (81-99); Mean Platelet Volume 11.2 fl (7.4-10.4); Monocytes # 0.8 K/mm3 (0.1-1.0); Monocytes % 7.7 % (1.7-9.3); Neutrophils # 6.1 K/mm3 (1.8-7.8); Neutrophils % 61.8 % (37.0-80.0); Platelet Count 257 K/mm3 (142-424); Red Blood Count 4.66 M/mm3 (4.20-5.40); Red Cell Distribution Width 12.5 % (11.5-17.5); White Blood Count 9.9 K/mm3 (4.8-10.8)
[2024-06-03 20:02] LABS: Erythrocyte Sedimentation Rate 8 mm/hr (0-20)
[2024-06-03 20:24] LABS: Alanine Aminotransferase 79 U/L (12-78); Albumin Level 4.6 g/dl (3.5-5.0); Albumin/Globulin Ratio 1.8 (1.1-1.8); Alkaline Phosphatase 79 U/L (38-126); Anion Gap 16.4 mEq/L (5-15); Aspartate Amino Transferase 43 U/L (14-36); Bilirubin,Total 0.3 mg/dl (0.2-1.3); Blood Urea Nitrogen 14 mg/dl (7-17); Calcium 9.6 mg/dl (8.4-10.2); Carbon Dioxide 23 mmol/L (22.0-30.0); Chloride 103 mmol/L (98-107); Chol/HDL Ratio 5.6 (1-3.5); Cholesterol 151 mg/dl (140-200); Estimated Glomerular Filt Rate 100 ml/min (>60); GFR (African American) 121 ML/MIN (>60); Globulin 2.6 g/dL (1.3-3.2); Glucose 112 mg/dl (74-100); HDL Cholesterol 27 mg/dl (40-60); Potassium 4.4 mmoL/L (3.5-5.1); Sodium 138 mmol/L (136-145); Total Protein,Serum 7.2 g/dl (6.3-8.2); Triglycerides 248 mg/dl (30-150); VLDL Cholesterol 50 mg/dL (0-40)
[2024-06-03 20:35] LABS: Direct LDL Cholesterol 85.03 mg/dL (100-129)
[2024-06-03 20:40] LABS: Free T4 (Free Thyroxine) 0.91 ng/dl (0.78-2.19)
[2024-06-03 20:53] LABS: Thyroid Stimulating Hormone 4.42 uIU/mL (0.465-4.68)
[2024-06-03 21:12] LABS: Vitamin B12 659 pg/mL (239-931)
[2024-06-03 22:10] LABS: 25-OH Vitamin D, Total 24.6 ng/mL (30-100)
== END 2024-06-03 23:59 | disposition home or self-care (01) ==
LOC: LAB.DROPOF 06-04 12:29
PROVIDERS: PCP Nurse Practitioner; Visit Provider Nurse Practitioner
DX: E03.9 Hypothyroidism, unspecified (principal); R53.83 Other fatigue; E66.9 Obesity, unspecified
CPT/HCPCS: 80053; 80061; 82306; 82607; 83036; 84439; 84443; 85025; 85651

== ENCOUNTER 2024-07-08 18:30 | Emergency (ER) | payer MEDICAID, SELFPAY ==
--- NOTE | 2024-07-08 18:36 | ED_ITS ---
Discharge Plan Disposition Patient Disposition: Home, Self-Care Prescriptions Prescriptions: New amoxicillin-pot clavulanate 875-125 mg tablet 1 tab PO BID Qty: 20 0RF No Action omeprazole 40 mg capsule,delayed release(DR/EC) 40 mg PO DAILY Qty: 90 1RF levothyroxine 50 mcg tablet 50 mcg PO DAILY Qty: 60 0RF famotidine 20 mg tablet See Rx Instructions .ROUTE .COMPLEX Qty: 180 1RF Dose Instruction: TAKE 1 TABLET BY MOUTH TWICE A DAY Rx Instructions: TAKE 1 TABLET BY MOUTH TWICE A DAY cetirizine 10 mg tablet 10 mg PO DAILY Qty: 90 1RF cefdinir 300 mg capsule 300 mg PO BID Qty: 20 0RF albuterol sulfate 90 mcg/actuation HFA aerosol inhaler 2 puff inhalation Q4-6H PRN (Reason: shortness of breath or wheezing) Qty: 8.5 0RF sumatriptan succinate 100 mg tablet See Rx Instructions PO .COMPLEX Qty: 10 0RF Rx Instructions: take 1 tab at onset of headache; if no relief, may repeat 1 tab after at least 2 hrs; max = 2 tabs/24 hrs PO cholecalciferol (vitamin D3) 125 mcg (5,000 unit) tablet 125 mcg PO DAILY Qty: 30 5RF Referrals Follow up/Referrals: Provider,Referral, MD [Primary Care Provider] - See instructions Activity Restrictions/Add. Instructions Additional Instructions/Restrictions: Take Augmentin as prescribed. Take Tylenol 1000 mg and ibuprofen 400 mg every 6 hours. Do not take more than 4 g of Tylenol in a 24-hour period. Follow-up with dentist as soon as possible. Please return to the ER with any new, concerning, worsening symptoms. Clinical Impressions Clinical Impression: Pain, dental Print Language Print Language: Mongolian Discharge ED Provider: Bear Woods General Adult HPI General Chief complaint: Dental/Oral Stated complaint: pain in her mouth had a tooth pulled Time Seen by Provider: 07/08/24 18:33 Mode of Arrival: Ambulatory Source of Information: Patient Limitations: No Limitations History of Present Illness HPI narrative: This is a 28-year-old female who had a right upper and right lower wisdom tooth removal 1 week ago presenting with worsening pain in her wisdom tooth extraction sites. Reports discharge of pus. Denies fever. Took Tylenol at home without significant improvement. States that she is not able to follow-up with her dentist until Saturday. Denies any other symptoms Related Data Previous Rx's ?Medication ?Instructions ?Recorded albuterol sulfate 90 mcg/actuation 2 puff inhalation Q4-6H PRN 02/10/24 aerosol inhaler shortness of breath or wheezing #8.5 grams cefdinir 300 mg capsule 300 mg PO BID #20 caps 06/03/24 cetirizine 10 mg tablet 10 mg PO DAILY #90 tabs 06/03/24 famotidine 20 mg tablet See Rx Instructions .Route 06/03/24 .COMPLEX #180 tabs levothyroxine 50 mcg tablet 50 mcg PO DAILY #60 tabs 06/03/24 omeprazole 40 mg capsule,delayed 40 mg PO DAILY #90 caps 06/03/24 release cholecalciferol (vitamin D3) 125 125 mcg PO DAILY #30 tabs 06/30/24 mcg (5,000 unit) tablet sumatriptan succinate 100 mg tablet See Rx Instructions PO .COMPLEX 06/30/24 #10 tabs amoxicillin 875 mg-potassium 1 tab PO BID #20 tabs 07/08/24 clavulanate 125 mg tablet Allergies Allergy/AdvReac Type Severity Reaction Status Date / Time sulfamethoxazole (From Allergy Verified 06/03/24 14:56 Bactrim) trimethoprim (From Bactrim) Allergy Verified 06/03/24 14:56 aspirin AdvReac Verified 06/03/24 14:56 [facility] Disclaimer: The information contained in this section may have been updated after the patient was seen, as this information can be updated by other users. Medical History (Updated 07/08/24 @ 18:45 by Bear Woods MD) IFG (impaired fasting glucose) Vitamin D deficiency Allergic rhinitis Obesity Chest pain Weakness Pharyngitis Upper respiratory infection Abdominal cramps Sinusitis Fatigue Surgical History History of bilateral salpingectomy Hx of cholecystectomy History of 3 sections Family History Other Cancer Social History Smoking Status: Current every day smoker tobacco type: e-cigarettes alcohol intake: never substance use type: denies use current occupational status: unemployed Travel in the last 8 weeks?: None Other Medical History Have you received the Flu Vaccine for this season: No Have you received the Pneumonia Vaccine: No ROS Obtained: Yes All systems reviewed & no additional complaints except as documented Physical Exam General General appearance: alert and in no apparent distress Head Head exam: atraumatic Eye Eye exam: Present normal appearance, PERRL and EOMI ENT ENT exam: Present other (Robbins tooth extraction sites in the right upper and right lower jaw without significant fluctuance or discharge) Neck Neck exam: Present normal inspection and full ROM Chest Chest inspection: Present symmetric chest wall rise Respiratory Respiratory exam: Present normal lung sounds bilaterally; Absent respiratory distress Cardiovascular Cardiovascular exam: Present regular rate and normal rhythm Abdominal Exam Abdominal exam: Present soft; Absent distention Extremities Exam Extremities exam: Present normal inspection Neurological Exam Neurological exam: Present alert and oriented X3 Psychiatric Psychiatric exam: Present normal affect and normal mood Skin Skin exam: Present warm and dry Medical Decision Making Medical Records Medical records reviewed: Yes I reviewed the patient's medical records. Screening: Per USPSTF and CDC recommendations, given the prevalence of disease in our region, it is our hospital?s policy to screen for HIV and viral Hepatitis for all patients aged 18 and over and those with ongoing risk factors. Caio Inquiry Pt receiving controlled substance: No Vital Signs: 07/08/24 18:38 Temperature 98.1 F Temperature Source Oral Pulse Rate [Right Brachial] 74 Respiratory Rate 20 Blood Pressure [Right Arm] 115/49 L Blood Pressure Mean [Right Arm] 71 Blood Pressure Source [Right Arm] Automatic Cuff Blood Pressure Position [Right Arm] Sitting 02 Sat by Pulse Oximetry 97 Oxygen Delivery Method Room Air Orders (Tests/Meds): ED MEDICATIONS Discontinued Medications Generic Name Dose Route Start Last Admin Trade Name Freq PRN Reason Stop Dose Admin Acetaminophen 1,000 mg 07/08/24 18:43 Acetaminophen 500mg Tab PO 07/08/24 18:44 ONCE ONE Amoxicillin/Clavulanate Potassium 1 each 07/08/24 18:45 Amoxicillin/Clavulanate Potassium 875/125mg Tablet PO 07/08/24 18:46 ONCE ONE Lidocaine HCl 15 ml 07/08/24 18:43 Lidocaine 2% Viscous Melanie 15ml Udc PO 07/08/24 18:44 ONCE ONE Medical Decision Narrative: This is a 28-year-old female presenting with dental pain. She had a wisdom tooth extraction on the right upper and right lower 1 week ago. On arrival, afebrile, hemodynamically stable, nontoxic-appearing. Differential diagnosis includes but is not limited to abscess, peritonitis, dry sockets. Exam was fairly unremarkable and extraction sites were well-appearing. Administered Augmentin for empiric antimicrobial coverage. Offered the patient dental block however she declined. Counseled on treatment with Tylenol and ibuprofen for pain control at home and gave the patient viscous lidocaine in the ER. She is to follow-up with her dentist on Saturday. Ultimately discharged in stable condition. Critical Care Critical Care Time Critical Care Time: No
[2024-07-08 18:38] VITALS: BP 115/49; PULSE 74; RESP 20; TEMP 36.7; O2SAT 97; BMI 30.2
[2024-07-08] MEDS: AMOXICILLIN/CLAVULANATE POTASSIUM 875/125MG TABLET 1 EACH PO (18:47)
[2024-07-08] MEDS: ACETAMINOPHEN 500MG TAB 1000 MG PO (18:47)
[2024-07-08] MEDS: LIDOCAINE 2% VISCOUS SOL 15ML UDC 15 ML PO (18:47)
[2024-07-08 18:50] VITALS: BP 115/74; PULSE 70; RESP 20; TEMP 36.7; O2SAT 98
== END 2024-07-08 18:54 | disposition home or self-care (01) ==
LOC: ER 18:48
PROVIDERS: Emergency Provider Student in an Organized Health Care Education/Training Program
DX: K08.89 Other specified disorders of teeth and supporting structures (principal)
CPT/HCPCS: 99283

== ENCOUNTER 2024-10-01 13:20 | Outpatient (CLI) | payer MEDICAID, SELFPAY ==
[2024-10-01 19:35] LABS: Chloride 105 mmol/L (98-107)
[2024-10-01 19:36] LABS: Albumin Level 4.7 g/dl (3.5-5.0); Potassium 4.2 mmoL/L (3.5-5.1); Sodium 137 mmol/L (136-145)
[2024-10-01 19:38] LABS: Blood Urea Nitrogen 12 mg/dl (7-17); Creatinine,Serum 0.60 mg/dl (0.52-1.04); Estimated Glomerular Filt Rate 119 ml/min (>60); GFR (African American) 144 ML/MIN (>60)
[2024-10-01 19:39] LABS: Alanine Aminotransferase 69 U/L (12-78); Albumin/Globulin Ratio 1.7 (1.1-1.8); Alkaline Phosphatase 97 U/L (38-126); Anion Gap 13.2 mEq/L (5-15); Aspartate Amino Transferase 44 U/L (14-36); Bilirubin,Total 0.5 mg/dl (0.2-1.3); Calcium 9.8 mg/dl (8.4-10.2); Carbon Dioxide 23 mmol/L (22.0-30.0); Globulin 2.8 g/dL (1.3-3.2); Glucose 93 mg/dl (74-100); Total Protein,Serum 7.5 g/dl (6.3-8.2)
[2024-10-01 19:54] LABS: Free T4 (Free Thyroxine) 0.89 ng/dl (0.78-2.19)
[2024-10-01 20:08] LABS: Thyroid Stimulating Hormone 6.09 uIU/mL (0.465-4.68)
[2024-10-01 20:13] LABS: 25-OH Vitamin D, Total 32.2 ng/mL (30-100)
--- OUTSIDE RECORDS SUMMARY | 2024-10-05 13:23 | XMS_ITS | Encounter Summary ---
Author Organization [facility] Address [address] [place] [address] Care Team Providers Care Case Operator Name Role Phone Unavailable Primary Care Provider Unavailabl e Encounter Details Date Type Department Care Team (Late st Contact Info) Description 08/24/2021 Community [facility] [address] [place] [address] Juanita Vela MD [address] [place], [place] [id number] Gestational diabetes mellitus (GDM), antepartum, gestational diabetes method of control unspecified (Primary Dx) Social History Tobacco Use Types Packs/Day Years Used Date Smoking Tobacco: Every Day Smokeless Tobacco: Never Comments Unknown Sex and Gender Information Value Date Recorded Sex Assigned at Not on file Legal Sex Female 6:13 PM EDT Gender Identity Not on file Sexual Orientation Not on file documented as of this encounter Plan of Treatment Not on file documented as of this encounter Visit Diagnoses Diagnosis Gestational diabetes mellitus (GDM), antepartum, gestational diabetes method of control unspecified- Primary documented in this encounter
--- OUTSIDE RECORDS SUMMARY | 2024-10-05 13:23 | XMS_ITS | Encounter Summary ---
Author Organization [facility] Address [address] [place] [address] Care Team Providers Care Health And Physical Education Professor Name Role Phone Unavailable Primary Care Provider Unavailabl e Reason for Referral * Consultation (Routine) - Closed Specialty Diagnoses / Procedures Referred By Contac t Referred To Contact Obstetrics and Gynecology Diagnoses Other specified congenital malformations of brain (CMS/HCC) Juanita Vela MD [address] [place] [phone] Phone: tel: fax: Referral ID Status Reason Start Date Expiration Date V isits Requested Visits Authorized [id number] Closed Specialty Services Required 06/15/2021 12/15/2022 1 1 Encounter Details Date Type Department Care Team (Latest Contact Info) Description 06/15/2021 Community [facility] [address] [place] [address] Juanita Vela MD [address] [place] [phone] Other specified congenital malformations of brain (CMS/HCC) (Primary Dx) Social History Tobacco Use Types Packs/Day Years Used Date Smoking Tobacco: Every Day Smokeless Tobacco: Never Comments Unknown Sex and Gender Information Value Date Recorded Sex Assigned at Not on file Legal Sex Female 6:13 PM EDT Gender Identity Not on file Sexual Orientation Not on file documented as of this encounter Plan of Treatment Scheduled Referrals Name Type Priority Associated Diagnoses Orde r Schedule Ambulatory referral to Obstetrics / Gynecology Outpatient Referral Routine Other specified congenital malformations of brain (CMS/HCC) 1 Occurrences starting 06/15/2021 until 12/15/2022 documented as of this encounter Visit Diagnoses Diagnosis Other specified congenital malformations of brain (CMS/HCC)- Primary documented in this encounter
--- OUTSIDE RECORDS SUMMARY | 2024-10-05 13:25 | XMS_ITS | Clinical Summary ---
Author Organization [facility] Address [address] [place] [address] Care Team Providers Care Arts Administrator Name Role Phone Unavailable Primary Care Provider Unavailabl e Allergies Active Allergy Reactions Criticality Noted Date Comments Aspirin Rash Low 12/22/2017 Sulfacetamide Rash Low 12/22/2017 Sulfamethoxazole-Trimethoprim Hives,Unkn own - Patient states they do not know rxn details Medium 11/20/2019 Immunizations Immunization Administration Dates Next Due Tdap 10/07/2019 Social History Tobacco Use Types Packs/Day Years Used Date Smoking Tobacco: Every Day Smokeless Tobacco: Never Comments Unknown Sex and Gender Information Value Date Recorded Sex Assigned at Not on file Legal Sex Female 6:13 PM EDT Gender Identity Not on file Sexual Orientation Not on file Last Filed Vital Signs Vital Sign Reading Time Taken Comments Blood Pressure 111/69 06/08/2020 3:32 PM EDT Pulse 81 06/08/2020 3:32 PM EDT Temperature - - Respiratory Rate - - Oxygen Saturation - - Inhaled Oxygen Concentration - - Weight 54.3 kg (119 lb 11.4 oz) 06/08/2020 3:32 PM EDT Height 162.6 cm (5' 4 ) 06/08/2020 3:32 PM EDT Body Mass Index 20.55 06/08/2020 3:32 PM EDT Plan of Treatment Health Maintenance Due Date Last Done Comments [facility]-Depression Screening 1995 [facility]-Infant/Child/Adol SDOH Screenings 1995 [facility]-Hepatitis B Vaccines (2 of 3 - 3-dose series) 02/11/1997 01/14/1997 [facility]-Varicella Vaccines (2 of 2 - 2-dose childhood series) 1999 01/14/1997 [facility]-IPV Vaccines (2 of 3 - 4-dose series) 12/19/1999 11/21/1999 HPV Vaccines (1 - 3-dose series) 11/15/2010 [facility]- SDOH Screenings 11/15/2013 [facility]-Adult SDOH Screenings 11/15/2013 [facility]-Pap Smear 11/15/2016 [id number] Vaccine (1 - 2023- season) 2023 [facility]-Influenza Vaccine (#1) 11/09/202403/24, 02/23/2020 [facility]-DTaP,Tdap,and Td Vaccines (3 - Td or Tdap) 10/06/2029 10/07/2019, 10/03/2007 [facility]-Zoster Vaccines (1 of 2) 11/15/2045 01/14/1997 [facility]-HIB Vaccines Aged Out No longer e ligible based on patient's age to complete this topic [facility]-Hepatitis A Vaccines Aged Out No longer eligible based on patient's age to complete this topic [facility]-Pneumococcal Vaccine: Pediatrics (0 to 5 Years) and At-Risk Patients (6 to 49 Years) Aged Out No longer eligible b ased on patient's age to complete this topic [facility]-Rotavirus Vaccines Aged Out No lo nger eligible based on patient's age to complete this topic
--- OUTSIDE RECORDS SUMMARY | 2024-10-05 13:25 | XMS_ITS | Clinical Summary ---
Author Organization [facility] Address [address] [place] [address] Phone Care Team Providers Care Network Engineering Advisor Name Role Phone No Pcp, Provider Not In [facility] Primary Care [facility] er Unavailable Allergies Active Allergy Reactions Criticality Noted Date Comments Aspirin Rash 03/20/2017 Septra I.V. Rash 03/20/2017 Medications albuterol (PROVENTIL HFA;VENTOLIN HFA) 90 mcg/actuation inhaler Inhale 2 Puffs into the lungs every 6 hours as needed for Wheezing. Active loratadine (CLARITIN) 10 mg Oral TabletIndication s:Allergic rhinitis, unspecified seasonality, unspecified trigger Take 1 Tab by mouth daily. 30 Tab 5 8 Active Additional Information Patient not taking.Reported on 05/10/2022 fluticasone propionate (FLONASE) 50 mcg/actuation Nasl [place], SuspensionIndica tions:Acute cough,Head congestion 1 [place] by Nasal route daily. 1 Each 2 2 Active Additional Information Patient not taking.Reported on 12/29/2021 FLUoxetine (PROZAC) 10 mg Oral CapsuleIndicatio ns:Generalized anxiety disorder,Postpar piedad depression TAKE 1 CAPSULE BY MOUTH EVERY DAY 90 Capsule 3 Active Additional Information Patient not taking.Reported on 05/10/2022 Hospital, Clinic, or Other Facility Administered Medication Ordered Dose Route Frequency Start Date End Date Status medroxyPROGESTERone (DEPO-PROVERA) injection 150 mgIndications:Surveillanc e of contraceptive injection 150 mg IM EVERY 90 DAYS 07/02/2018 Active Active Problems Problem Noted Date Diagnosed Date Generalized anxiety disorder 12/29/2021 Overview (12/29/2021): Hx of celexa and sertraline use without success Assessment & Plan (12/29/2021 5:07 PM EDT): -started prozac today -GREGORY 7 and PHQ9 scores in flowsheets Surveillance of contraceptive injection 07/03/19 19 depression 04/23/2016 Overview (12/29/2021): Hx of celexa and sertraline use without success Assessment & Plan (12/29/2021 5:06 PM EDT): -start prozac, titrate up as needed -follow up in one month Immunizations Immunization Administration Dates Next Due Tdap 10/07/2019 Surgical History Surgery Date Site/Laterality Comments SECTION 03/11/2017 - 03/10/2018 CHOLECYSTECTOMY 2016 Medical History Medical History Date Comments Asthma Family History Medical History Relation Name Comments Seizures Father Breast Cancer Maternal Aunt Asthma Mother Irritable Bowel Syndrome Mother Breast Cancer Paternal Grandmother Relation Name Status Comments Daughter Alive Father Alive Maternal Aunt Alive Mother Alive Paternal Grandmother Sister Alive Son Alive Social History Tobacco Use Types Packs/Day Years Used Date Smoking Tobacco: Former Cigarettes 0.3 0.5 Smokeless Tobacco: Never Tobacco Cessation:Counseling Given: Not Answered Alcohol Use Standard Drinks/Week Comments No 0 (1 standard drink = 0.6 oz pur e alcohol) PHQ-2 Answer Date Recorded PHQ-2 Total Score 4 12/29/2021 Sexually Active Control Partners Comments Yes Male Comments No Sex and Gender Information Value Date Recorded Sex Assigned at Not on file Legal Sex Female 2:45 AM EDT Gender Identity Not on file Sexual Orientation Not on file 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 Not on file Not on file Not on file Obstetrics History Para Term AB IAB SAB Ectopic Multiple Livin g Live Births 2 1 1 1 1 Date Outcome GA Total Labor Labor/2nd/3rd Weight Sex Type Anes PTL Gali A1 A5 Name Clin 016 Term 39w 1d 7 lb 15 oz (3.6 kg) M Vag-S pont N Living Complications:Shoulder Dysto sourav Delivery Location:[facility] Last Filed Vital Signs Vital Sign Reading Time Taken Comments Blood Pressure 116/60 02/19/2024 10:57 AM EST Pulse 68 02/19/2024 12:00 PM EST Temperature 36.5 C (97.7 F) 02/19/2024 8:45 AM EST Respiratory Rate 17 02/19/2024 12:00 PM EST Oxygen Saturation 98% 02/19/2024 12:00 PM EST Inhaled Oxygen Concentration - - Weight 68 kg (150 lb) 02/19/2024 8:45 AM EST Height 154.9 cm (5' 1 ) 02/19/2024 8:45 AM EST Body Mass Index 28.34 02/19/2024 8:45 AM EST Plan of Treatment Health Maintenance Due Date Last Done Comments Hepatitis B Vaccine (2 of 3 - 3-dose series) 02/11/1997 01/14/1997 Annual Wellness Exam 11/15/1998 Cervical Cancer Screening 02/08/2019 Pap Smear 02/08/2019 02/09/2016 COVID-19 Vaccine ( season) 2023 Influenza Vaccine (#1) 2024 03/24/2021, 2019 DTaP/TDaP/Td (9 - Td or Tdap) 09/08/2031 09/07/2021, 10/07/2019, 10/03/2007, Additional history exists Chlamydia Screening Discontinued 04/20/2016 Meningococcal B Vaccine Aged Out No l onger eligible based on patient's age to complete this topic Pneumococcal Vaccine 0-49 Aged Out No longer eligible based on patient's age to complete this topic Goals Goal Patient Goal Type Associated Problems Recent Progress Patient-Stated? Author Maintain a healthy diet, exercise regularly and maintain an ideal body weight General No Barby Moser RMA Stay Tobacco Free Lifestyle No Barby Moser RMA Procedures Procedure Name Priority Date/Time Associated Diagnosis Comments CHLAMYDIA/GC BY TMA Routine 04/20/2016 8 :14 AM EST Abnormal uterine bleeding from Last 3 Months or Most Recently Relevant to Health Maintenance Results * CHLAMYDIA/GC BY TMA (04/20/2016 8:14 AM EST) Chlamydia trachomatis Negative [facility] Neisseria gonorrhoeae Negative [facility] Comment: Testing methodology is drum stenciler mediated amplification (TMA) using the Aptima Combo 2 assay from [employer]. A negative result does not completely rule out a Chlamydia trachomatis or Neisseria gonorrhoeae infection due to potential inhibitors or levels present below the limit of detection by this assay. Results are dependent on proper collection and transport of specimen. This test is indicated for medical purposes only and should not be used for legal or forensic purposes. The performance characteristics of this test were validated by [facility]. This assay is FDA cleared to test the following specimens: clinician-collected endocervical, vaginal and male urethral swab specimens, patient collected vaginal specimens within a clinic setting, Thin Prep Specimens in Preserv[employer] Solution, and first-stream, unpreserved male urine specimens. Testing on female urine is not FDA approved by this methodology, but has been developed and validated by the [facility]. Detailed methodology is available upon request. Urine specimen (specimen) 04/20/2016 8:14 AM EST 04/21/2016 1:22 PM EST us Paige Aceves MD MICROBIOLOGY - [facility] ORDERABLES Final Result Performing Organization Address City/State/[facility] Co de Phone Number [facility] [address] [place] [address] from Last 3 Months or Most Recently Relevant to Health Maintenance Insurance Romana shaw dr [address] MEDICAID [place] MEDICAID Care Teams Network Engineering Advisor Relationship Specialty Start Date End Date No Pcp, Provider Not In Epic PCP - General 02/19/24
--- OUTSIDE RECORDS SUMMARY | 2024-10-05 13:26 | XMS_ITS | Data Portability ---
Author Organization [facility] Address [address] [place] [address] Assessment Encounter Date Assessment Date Assessment LastModified by Organization Details LastModified Time 09/15/2021 09/15/2021 Total visit length today 60 ,> 50% of which is face to face counselling and care coordination, and including chart review (extensive record rview following visit and documentation time [email or web address] Not available 09/16/2021 16:38:21 09/22/2021 09/22/2021 25 yo here for OB visit [email or web address] Not available 09/26/2021 19:28:43 Plan of Treatment Reminders Order Date Submit Date Provider Last Modified By Organization Details Last Modified Time Details Appointments None recorded. Lab urinalysis, dipstick 2021 022 marietta Weems [facility], [address] [place] [address] , [place], [address], 12:34:02 CBC w/ auto diff 2021 022 [facility]( [facility]), [facility] [place], [address], 13:14:14 potassium, serum 2021 022 [facility]( [facility]), [place], [address], 13:10:59 urinalysis, reflex culture 2021 022 SHAN [facility]( Lab), [address] [place] [address] [place], [address], 2 15:41:19 urinalysis, dipstick 2021 022 [email or web address] 2 Varney [facility]ender [facility], [address] [place] [address] , [place], [address], 2 18:12:45 streptococc us group B, culture, unspecified specimen [facility] [place] 2 [facility]( Lab), [address] [place] [address] [place], [address], 2 12:23:21 urinalysis, dipstick 2021 022 [email or web address] [facility], [address] [place] [address] , [place], [address], 2 20:18:21 urinalysis, dipstick [address] [facility] [place] [place] 2 Var[facility], [address] [place] [address] , [place], [address], 2 17:01:15 CBC w/ auto diff 2021 022 ISABAN [facility], [address], [facility], [place], [address], 2 07:12:54 Referral gynecologic surgery referral - rCS and BS at 39 wk 2021 022 [email or web address] 2 Not available 2 12:28:40 Procedures None recorded. Surgeries None recorded. Imaging US, obstetric, biophysical profile 2021 022 marietta [facility], [address] [place] [address] , [place], [address], 2 17:45:07 non-stress test 2021 022 marietta [facility], [address] [place] [address] , [place], [address], 2 17:45:07 [facility]22 [facility], [address] [place] [address] , [place], [address], 2 14:10:06 US, obstetric, biophysical profile 2021 022 [facility], [address] [place] [address] , [place], [address], 2 14:10:06 US, obstetric, biophysical profile 2021 022 SHAN [facility], [address] [place] [address] , [place], [address], 2 00:27:58 non-stress test 2021 022 [email or web address] [facility], [address] [place] [address] , [place], [address], 2 20:18:21 US, obstetric, biophysical profile 2021 022 Varney [facility], [address] [place] [address] , [place], [address], 2 08:22:36 Medication Orders Pepcid 20 mg tablet 2021 022 [id number], [facility] [place], [address], 17:02:21 Preparation H Hydrocortis one 1 % topical cream 2021 022 [email or web address] [id number], [address] [place], [address], 14:20:31 Patient TargetsNo targets recorded. Patient InstructionsNo instructions recorded. Reason for Referral Gynecologic Surgery Referral for Supervision of high risk with history of previous section done rCS and BS at 39 wk Referring Physician: Juanita Vela, COMMERCIAL CREDIT ANALYST, Encounter Date: 09/07/2021 Results Created Date Observation Date Name Description Value Unit Range Abnormal Flag Note LastModifiedBy Organization Detail LastModifiedTime 09/08/19 22 09/08/2021 CBC WITH DIFFE RENTI AL/PL ATELE T WBC 8.1 x10e3 /uL 3.4-10 .8 Not Available [facility] ([facility]) [address] [place], [address], 09/08/2021 07:12:54 09/08/19 22 09/08/2021 CBC WITH DIFFE RENTI AL/PL ATELE T RBC 3.72 x10e6 /uL 3.77-5 .28 below low normal Not Available [facility] ([facility]) [address] [place], [address], 09/08/2021 07:12:54 09/08/19 22 09/08/2021 CBC WITH DIFFE RENTI AL/PL ATELE T hemoglobin 9.9 g/dL 11.1-1 5.9 below low normal Not Available [facility] ([facility]) [address] [place], [address], 09/08/2021 07:12:54 09/08/19 22 09/08/2021 CBC WITH DIFFE RENTI AL/PL ATELE T hematocrit 30.6 % 34.0-4 6.6 below low normal Not Available [facility] ([facility]) [address] [place], [address], 09/08/2021 07:12:54 09/08/19 22 09/08/2021 CBC WITH DIFFE RENTI AL/PL ATELE T MCV 82 fL 79-97 Not Available [facility] ([facility]) [address] [facility], [place], [address], 09/08/2021 07:12:54 09/08/19 22 09/08/2021 CBC WITH DIFFE RENTI AL/PL ATELE T MCH 26.6 pg 26.6-3 3.0 Not Available [facility] ([facility]) [address] [place], [address], 09/08/2021 07:12:54 09/08/19 22 09/08/2021 CBC WITH DIFFE RENTI AL/PL ATELE T MCHC 32.4 g/dL 31.5-3 5.7 Not Available [facility] ([facility]) [address] [place], [address], 09/08/2021 07:12:54 09/08/19 22 09/08/2021 CBC WITH DIFFE RENTI AL/PL ATELE T RDW 14.5 % 11.7-1 5.4 Not Available [facility] ([facility]) [address] [place], [address], 09/08/2021 07:12:54 09/08/19 22 09/08/2021 CBC WITH DIFFE RENTI AL/PL ATELE T platelets 146 x10e3 /uL 150-45 0 below low normal Not Available [facility] ([facility]) [address] [place], [address], 09/08/2021 07:12:54 09/08/19 22 09/08/2021 CBC WITH DIFFE RENTI AL/PL ATELE T neutrophils 67 % not estab. Not Available [facility] ([facility]) [address] [place], [address], 09/08/2021 07:12:54 09/08/19 22 09/08/2021 CBC WITH DIFFE RENTI AL/PL ATELE T lymphs 20 % not estab. Not Available [facility] ([facility]) [address] [place], [address], 09/08/2021 07:12:54 09/08/19 22 09/08/2021 CBC WITH DIFFE RENTI AL/PL ATELE T monocytes 10 % not estab. Not Available [facility] ([facility]) [address] [facility], [place], [address], 09/08/2021 07:12:54 09/08/19 22 09/08/2021 CBC WITH DIFFE RENTI AL/PL ATELE T eos 0 % not estab. Not Available [facility] ([facility]) [address] [facility], [place], [address], 09/08/2021 07:12:54 09/08/19 22 09/08/2021 CBC WITH DIFFE RENTI AL/PL ATELE T basos 1 % not estab. 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 0 Not Available [facility] ([facility]) [address] [place], [address], 09/08/2021 07:12:54 09/08/19 22 09/08/2021 CBC WITH DIFFE RENTI AL/PL ATELE T lymphs (absolute) 1.6 x10e3 /uL 0.7-3. 1 Not Available [facility] ([facility]) [address] [facility], [place], [address], 09/08/2021 07:12:54 09/08/19 22 09/08/2021 CBC WITH DIFFE RENTI AL/PL ATELE T monocytes(ab solute) 0.8 x10e3 /uL 0.1-0. 9 Not Available [facility] ([facility]) [address] [facility], [place], [address], 09/08/2021 07:12:54 09/08/19 22 09/08/2021 CBC WITH DIFFE RENTI AL/PL ATELE T eos (absolute) 0.0 x10e3 /uL 0.0-0. 4 Not Available [facility] ([facility]) [address] [facility], [place], [address], 09/08/2021 07:12:54 09/08/19 22 09/08/2021 CBC WITH DIFFE RENTI AL/PL ATELE T baso (absolute) 0.0 x10e3 /uL 0.0-0. 2 Not Available [facility] ([facility]) [address] [facility], [place], [address], 09/08/2021 07:12:54 09/08/19 22 09/08/2021 CBC WITH DIFFE RENTI AL/PL ATELE T immature granulocytes 2 % not estab. Not Available [facility] ([facility]) [address] [facility], [place], [address], 09/08/2021 07:12:54 09/08/19 22 09/08/2021 CBC WITH DIFFE RENTI AL/PL ATELE T immature grans (abs) 0.1 x10e3 /uL 0.0-0. 1 Not Available [facility] ([facility]) [address] [facility], [place], [address], 09/08/2021 07:12:54 09/08/19 22 09/08/2021 CBC WITH DIFFE RENTI AL/PL ATELE T NRBC SHIRRING TENDER Not Available [facility] ([facility]) [address] [facility], [place], [address], 09/08/2021 07:12:54 09/08/19 22 09/08/2021 CBC WITH DIFFE RENTI AL/PL ATELE T hematology comments: SHIRRING TENDER Not Available [facility] ([facility]) [address] [facility], [place], [address], 09/08/2021 07:12:54 09/08/19 22 09/08/2021 PLEAS E NOTE please note Commen t The date and/o r time of colle ction was not indic ated on the requi sitio n as requi red by state and [place] al law. The date of recei pt of the speci men was used as the colle ction date if not suppl ied. Not Available [facility] ([facility]) [address] [facility], [place], [address], 09/08/2021 07:12:55 09/23/19 22 09/22/2021 STREP GROUP B VARSHA note See Note Order ing Provi reese: Nu Vela (Appl etvelma) Not Available [address] , [place], [address], 09/25/2021 11:25:24 09/23/19 22 09/22/2021 STREP GROUP B VARSHA strep group B VARSHA See Below STREP GROUP B VARSHA(F ) Kori Date/ Time: 09/22 19:41 Alessandra Date/ Time: 09/24 11:22 SOURC E: VAGIN AL/PE RINEA L/REC JL SPEC DESC: STREP B VARSHA NEGAT MARCELLUS FOR GBS BY CRYSTAL MONTERROSO Y Not Available [address] , [place], [address], 09/25/2021 11:25:24 09/23/19 22 09/22/2021 STREP GROUP B VARSHA performing lab see note [facility] [address] [facility] [address] Not Available [address] , [place], [address], 09/25/2021 11:25:24 09/26/19 22 09/25/2021 PLACE NTAL ALPHA MICRO GLOB- 1 note See Note Order ing Provi reese: Kam smith DO Not Available [address] , [place], [address], 09/25/2021 18:04:11 09/26/19 22 09/25/2021 PLACE NTAL ALPHA MICRO GLOB- 1 placental alpha microglob-1 NEGATI VE negati ve Not Available [address] [place], [address], 09/25/2021 18:04:11 09/26/19 22 09/25/2021 PLACE NTAL ALPHA MICRO GLOB- 1 performing lab see note ML - [facility] [email or web address] [facility] [id number] Not Available [address] , [place], [address], 09/25/2021 18:04:11 09/26/19 22 09/25/2021 URINA LYSIS COMPL ETE note See Note Order ing Provi reese: Kam smith DO Not Available [address] [place], [address], 09/25/2021 18:37:03 09/26/19 22 09/25/2021 URINA LYSIS COMPL ETE UA method of collection CLEAN CATCH Not Available [address] [place], [address], 09/25/2021 18:37:03 09/26/19 22 09/25/2021 URINA LYSIS COMPL ETE UA color YELLOW yellow Not Available [address] , [place], [address], 09/25/2021 18:37:03 09/26/19 22 09/25/2021 URINA LYSIS COMPL ETE UA appearance CLEAR clear Not Available [address] [place], [address], 09/25/2021 18:37:03 09/26/19 22 09/25/2021 URINA LYSIS COMPL ETE UA glucose dipstick NEGATI VE negati ve Not Available [address] [place], [address], 09/25/2021 18:37:03 09/26/19 22 09/25/2021 URINA LYSIS COMPL ETE UA bilirubin dipstick NEGATI VE negati ve Not Available [address] [place], [address], 09/25/2021 18:37:03 09/26/19 22 09/25/2021 URINA LYSIS COMPL ETE UA ketone dipstick NEGATI VE negati ve Not Available [address] , [place], [address], 09/25/2021 18:37:03 09/26/19 22 09/25/2021 URINA LYSIS COMPL ETE UA specific gravity 1.010 1.005- 1.030 normal Not Available [address] [place], [address], 09/25/2021 18:37:03 09/26/19 22 09/25/2021 URINA LYSIS COMPL ETE UA blood dipstick NEGATI VE negati ve Not Available [address] [place], [address], 09/25/2021 18:37:03 09/26/19 22 09/25/2021 URINA LYSIS COMPL ETE UA pH dipstick 6.5 5.0-9. 0 normal Not Available [address] [place], [address], 09/25/2021 18:37:03 09/26/19 22 09/25/2021 URINA LYSIS COMPL ETE UA protein dipstick NEGATI VE negati ve Not Available [address] [place], [address], 09/25/2021 18:37:03 09/26/19 22 09/25/2021 URINA LYSIS COMPL ETE UA urobilinogen dipstick NEGATI VE mg/dL <1 Not Available [address] [place], [address], 09/25/2021 18:37:03 09/26/19 22 09/25/2021 URINA LYSIS COMPL ETE UA nitrite dipstick NEGATI VE negati ve Not Available [address] [place], [address], 09/25/2021 18:37:03 09/26/19 22 09/25/2021 URINA LYSIS COMPL ETE UA leukocyte esterase dipstick 1+ negati ve abnormal Not Available [address] [place], [address], 09/25/2021 18:37:03 09/26/19 22 09/25/2021 URINA LYSIS COMPL ETE UA RBC NONE SEEN RBC/h pf none seen Not Available [address] [place], [address], 09/25/2021 18:37:03 09/26/19 22 09/25/2021 URINA LYSIS COMPL ETE UA WBC 0-5 WBC/h pf 0-5 Not Available [address] [place], [address], 09/25/2021 18:37:03 09/26/19 22 09/25/2021 URINA LYSIS COMPL ETE UA epithelial cells 11-20 SQUAMO US epi/h pf 0-5 Not Available [address] , [place], [address], 09/25/2021 18:37:03 09/26/19 22 09/25/2021 URINA LYSIS COMPL ETE UA bacteria TRACE none seen Not Available [address] , [place], [address], 09/25/2021 18:37:03 09/26/19 22 09/25/2021 URINA LYSIS COMPL ETE UA mucus TRACE none seen Not Available [address] , [place], [address], 09/25/2021 18:37:03 09/26/19 22 09/25/2021 URINA LYSIS COMPL ETE UA amorphous sediment NONE SEEN none seen Not Available [address] , [place], [address], 09/25/2021 18:37:03 09/26/19 22 09/25/2021 URINA LYSIS COMPL ETE comment 1 REFLEX ADDED Not Available [address] , [place], [address], 09/25/2021 18:37:03 09/26/19 22 09/25/2021 URINA LYSIS COMPL ETE performing lab see note - [facility] [address] [facility] [address] Not Available [address] , [place], [address], 09/25/2021 18:37:03 09/26/19 22 09/25/2021 URINE CULTU RE note See Note Order ing Provi reese: Kam smith DO Not Available [address] , [place], [address], 09/27/2021 10:58:03 09/26/19 22 09/25/2021 URINE CULTU RE urine culture See Below URINE CULTU RE(F) Kori Date/ Time: 09/25 17:42 Alessandra Date/ Time: 09/27 10:55 SOURC E: CLEAN CATCH SPEC DESC: URINE CULTU RE 10,00 0 - 50,00 0 CFU/M L MIXED GENIT OURIN TABATHA KENDY NO CLINI ZEB SIGNI FICAN T ISOLA BRYCE Not Available [address] , [place], [address], 09/27/2021 10:58:03 09/26/19 22 09/25/2021 URINE CULTU RE performing lab see note ML - [facility] [address] [facility] [address] Not Available [address] , [place], [address], 09/27/2021 10:58:03 10/04/19 22 10/03/2021 POTAS SIUM note See Note Order ing Provi reese: Kamjozef smith DO Not Available [address] , [place], [address], 10/03/2021 13:10:58 10/04/19 22 10/03/2021 POTAS SIUM potassium 3.8 mmol/ L 3.5-5. 1 normal Not Available [address] , [place], [address], 10/03/2021 13:10:58 10/04/19 22 10/03/2021 POTAS SIUM performing lab see note ML - [facility] [email or web address] [facility] [place] [address] Not Available [address] , [place], [address], 10/03/2021 13:10:58 10/04/19 22 10/03/2021 CBC W/AUT O DIFFE RENTI AL note See Note Order ing Provi reese: Kam Gomes ki DO Not Available [address] , [place], [address], 10/03/2021 13:14:14 10/04/19 22 10/03/2021 CBC W/AUT O DIFFE RENTI AL white blood cell 6.9 10e3/ uL 4.5-13 .0 normal Not Available [address] , [place], [address], 10/03/2021 13:14:14 10/04/19 22 10/03/2021 CBC W/AUT O DIFFE RENTI AL red blood cell 3.79 10e6/ uL 3.80-5 .10 low Not Available [address] [place], [place], [address], 10/03/2021 13:14:14 10/04/19 22 10/03/2021 CBC W/AUT O DIFFE RENTI AL hemoglobin 9.7 g/dL 11.5-1 5.3 low Not Available [place] [address], [place], [address], 10/03/2021 13:14:14 10/04/19 22 10/03/2021 CBC W/AUT O DIFFE RENTI AL hematocrit 31.4 % 34.0-4 6.0 low Not Available [address] [place], [place], [address], 10/03/2021 13:14:14 10/04/19 22 10/03/2021 CBC W/AUT O DIFFE RENTI AL mean cell volume 83 fL 78.0-9 8.0 normal Not Available [address] [place], [place], [address], 10/03/2021 13:14:14 10/04/19 22 10/03/2021 CBC W/AUT O DIFFE RENTI AL mean cell HGB 25.6 pg 25.0-3 5.0 normal Not Available [address] , [place], [address], 10/03/2021 13:14:14 10/04/19 22 10/03/2021 CBC W/AUT O DIFFE RENTI AL mean cell HGB concentratio n 30.9 g/dL 31.0-3 6.0 low Not Available [address] [place], [place], [address], 10/03/2021 13:14:14 10/04/19 22 10/03/2021 CBC W/AUT O DIFFE RENTI AL red cell distribution width 16.2 % 11.0-1 5.0 high Not Available [address] [place], [place], [address], 10/03/2021 13:14:14 10/04/19 22 10/03/2021 CBC W/AUT O DIFFE RENTI AL platelet count 142 10e3/ uL 150-40 0 low Not Available [address] [place], [place], [address], 10/03/2021 13:14:14 10/04/19 22 10/03/2021 CBC W/AUT O DIFFE RENTI AL immature granulocyte % 1 0-1 normal Not Available [address] [place], [place], [address], 10/03/2021 13:14:14 10/04/19 22 10/03/2021 CBC W/AUT O DIFFE RENTI AL neutrophil % 60 % 35-75 normal Not Available [address] , [place], [address], 10/03/2021 13:14:14 10/04/19 22 10/03/2021 CBC W/AUT O DIFFE RENTI AL lymphocyte % 26 % 10-50 normal Not Available [address] , [place], [address], 10/03/2021 13:14:14 10/04/19 22 10/03/2021 CBC W/AUT O DIFFE RENTI AL monocyte % 12 % 0-15 normal Not Available [address] , [place], [address], 10/03/2021 13:14:14 10/04/19 22 10/03/2021 CBC W/AUT O DIFFE RENTI AL eosinophil % 0 % 0-5 normal Not Available [address] , [place], [address], 10/03/2021 13:14:14 10/04/19 22 10/03/2021 CBC W/AUT O DIFFE RENTI AL basophil % 0 % 0-5 normal Not Available [address] [place], [place], [address], 10/03/2021 13:14:14 10/04/19 22 10/03/2021 CBC W/AUT O DIFFE RENTI AL immature granulocyte # 0.09 x1000 /uL 0-0.05 high Not Available [address] [place], [place], [address], 10/03/2021 13:14:14 10/04/19 22 10/03/2021 CBC W/AUT O DIFFE RENTI AL neutrophil # 4.16 x1000 /uL 1.50-8 .00 normal Not Available [address] , [place], [address], 10/03/2021 13:14:14 10/04/19 22 10/03/2021 CBC W/AUT O DIFFE RENTI AL lymphocyte # 1.78 x1000 /uL 1.20-5 .20 normal Not Available [address] , [place], [address], 10/03/2021 13:14:14 10/04/19 22 10/03/2021 CBC W/AUT O DIFFE RENTI AL monocyte # 0.82 x1000 /uL 0.40-0 .90 normal Not Available [address] , [place], [address], 10/03/2021 13:14:14 10/04/19 22 10/03/2021 CBC W/AUT O DIFFE RENTI AL eosinophil # 0.02 x1000 /uL 0.00-0 .50 normal Not Available [address] , [place], [address], 10/03/2021 13:14:14 10/04/19 22 10/03/2021 CBC W/AUT O DIFFE RENTI AL basophil # 0.03 x1000 /uL 0.00-0 .30 normal Not Available [address] , [place], [address], 10/03/2021 13:14:14 10/04/19 22 10/03/2021 CBC W/AUT O DIFFE RENTI AL NRBC automated 0.0 /100_ WBC Not Available [address] , [place], [address], 10/03/2021 13:14:14 10/04/19 22 10/03/2021 CBC W/AUT O DIFFE RENTI AL performing lab see note - [address] [facility] [address] Not Available [address] , [place], [address], 10/03/2021 13:14:14 10/04/19 22 10/03/2021 URINA LYSIS COMPL ETE note See Note Order ing Provi reese: Kam smith DO Not Available [address] , [place], [address], 10/03/2021 13:15:16 10/04/19 22 10/03/2021 URINA LYSIS COMPL ETE UA method of collection CLEAN CATCH Not Available [address] [place], [address], 10/03/2021 13:15:16 10/04/19 22 10/03/2021 URINA LYSIS COMPL ETE UA color FLORIAN yellow abnormal Not Available [address] , [place], [address], 10/03/2021 13:15:16 10/04/19 22 10/03/2021 URINA LYSIS COMPL ETE UA appearance SL.UNRULY UDY clear Not Available [address] , [place], [address], 10/03/2021 13:15:16 10/04/19 22 10/03/2021 URINA LYSIS COMPL ETE UA glucose dipstick NEGATI VE negati ve Not Available [address] , [place], [address], 10/03/2021 13:15:16 10/04/19 22 10/03/2021 URINA LYSIS COMPL ETE UA bilirubin dipstick NEGATI VE negati ve Not Available [address] [place], [address], 10/03/2021 13:15:16 10/04/19 22 10/03/2021 URINA LYSIS COMPL ETE UA ketone dipstick 1+ negati ve abnormal Not Available [address] [place], [address], 10/03/2021 13:15:16 10/04/19 22 10/03/2021 URINA LYSIS COMPL ETE UA specific gravity 1.020 1.005- 1.030 normal Not Available [address] [place], [place], [address], 10/03/2021 13:15:16 10/04/19 22 10/03/2021 URINA LYSIS COMPL ETE UA blood dipstick 1+ negati ve abnormal Not Available [address] [place], [place], [address], 10/03/2021 13:15:16 10/04/19 22 10/03/2021 URINA LYSIS COMPL ETE UA pH dipstick 6.0 5.0-9. 0 normal Not Available [address] [place], [place], [address], 10/03/2021 13:15:16 10/04/19 22 10/03/2021 URINA LYSIS COMPL ETE UA protein dipstick 1+ negati ve abnormal Not Available [address] [place], [place], [address], 10/03/2021 13:15:16 10/04/19 22 10/03/2021 URINA LYSIS COMPL ETE UA urobilinogen dipstick 4 mg/dL <1 abnormal Not Available [address] [place], [place], [address], 10/03/2021 13:15:16 10/04/19 22 10/03/2021 URINA LYSIS COMPL ETE UA nitrite dipstick NEGATI VE negati ve Not Available [address] [place], [address], 10/03/2021 13:15:16 10/04/19 22 10/03/2021 URINA LYSIS COMPL ETE UA leukocyte esterase dipstick TRACE negati ve Not Available [address] [place], [address], 10/03/2021 13:15:16 10/04/19 22 10/03/2021 URINA LYSIS COMPL ETE UA RBC 0-5 RBC/h pf none seen abnormal Not Available [address] , [place], [address], 10/03/2021 13:15:16 10/04/19 22 10/03/2021 URINA LYSIS COMPL ETE UA WBC 0-5 WBC/h pf 0-5 Not Available [address] , [place], [address], 10/03/2021 13:15:16 10/04/19 22 10/03/2021 URINA LYSIS COMPL ETE UA epithelial cells 21-30 [facility] US epi/h pf 0-5 abnormal Not Available [address] , [place], [address], 10/03/2021 13:15:16 10/04/19 22 10/03/2021 URINA LYSIS COMPL ETE UA bacteria NONE SEEN none seen Not Available [address] , [place], [address], 10/03/2021 13:15:16 10/04/19 22 10/03/2021 URINA LYSIS COMPL ETE UA mucus NONE SEEN none seen Not Available [address] , [place], [address], 10/03/2021 13:15:16 10/04/19 22 10/03/2021 URINA LYSIS COMPL ETE UA amorphous sediment NONE SEEN none seen Not Available [address] [place], [address], 10/03/2021 13:15:16 10/04/19 22 10/03/2021 URINA LYSIS COMPL ETE performing lab see note - [facility] [address] [place] [address] Not Available [address] , [place], [address], 10/03/2021 13:15:16 10/09/19 22 10/08/2021 URINA LYSIS COMPL ETE note See Note Order ing Provi reese: [employer] Rebec ca Elizage CNM Not Available [address] , [place], [address], 10/08/2021 10:34:22 10/09/19 22 10/08/2021 URINA LYSIS COMPL ETE UA method of collection CLEAN CATCH Not Available [address] , [place], [address], 10/08/2021 10:34:22 10/09/19 22 10/08/2021 URINA LYSIS COMPL ETE UA color YELLOW yellow Not Available [address] , [place], [address], 10/08/2021 10:34:22 10/09/19 22 10/08/2021 URINA LYSIS COMPL ETE UA appearance CLEAR clear Not Available [address] [place], [address], 10/08/2021 10:34:22 10/09/19 22 10/08/2021 URINA LYSIS COMPL ETE UA glucose dipstick NEGATI VE negati ve Not Available [address] [place], [address], 10/08/2021 10:34:22 10/09/19 22 10/08/2021 URINA LYSIS COMPL ETE UA bilirubin dipstick NEGATI VE negati ve Not Available [address] [place], [address], 10/08/2021 10:34:22 10/09/19 22 10/08/2021 URINA LYSIS COMPL ETE UA ketone dipstick NEGATI VE negati ve Not Available [address] [place], [address], 10/08/2021 10:34:22 10/09/19 22 10/08/2021 URINA LYSIS COMPL ETE UA specific gravity 1.015 1.005- 1.030 normal Not Available [address] [place], [address], 10/08/2021 10:34:22 10/09/19 22 10/08/2021 URINA LYSIS COMPL ETE UA blood dipstick NEGATI VE negati ve Not Available [address] [place], [address], 10/08/2021 10:34:22 10/09/19 22 10/08/2021 URINA LYSIS COMPL ETE UA pH dipstick 6.5 5.0-9. 0 normal Not Available [address] [place], [address], 10/08/2021 10:34:22 10/09/19 22 10/08/2021 URINA LYSIS COMPL ETE UA protein dipstick NEGATI VE negati ve Not Available [address] [place], [address], 10/08/2021 10:34:22 10/09/19 22 10/08/2021 URINA LYSIS COMPL ETE UA urobilinogen dipstick NEGATI VE mg/dL <1 Not Available [address] [place], [address], 10/08/2021 10:34:22 10/09/19 22 10/08/2021 URINA LYSIS COMPL ETE UA nitrite dipstick NEGATI VE negati ve Not Available [address] [place], [address], 10/08/2021 10:34:22 10/09/19 22 10/08/2021 URINA LYSIS COMPL ETE UA leukocyte esterase dipstick 1+ negati ve abnormal Not Available [address] [place], [address], 10/08/2021 10:34:22 10/09/19 22 10/08/2021 URINA LYSIS COMPL ETE UA RBC NONE SEEN RBC/h pf none seen Not Available [address] [place], [address], 10/08/2021 10:34:22 10/09/19 22 10/08/2021 URINA LYSIS COMPL ETE UA WBC 11-20 WBC/h pf 0-5 abnormal Not Available [address] [place], [address], 10/08/2021 10:34:22 10/09/19 22 10/08/2021 URINA LYSIS COMPL ETE UA epithelial cells 11-20 SQUAMO US epi/h pf 0-5 Not Available [address] Ila Barclay, [place], [address], 10/08/2021 10:34:22 10/09/19 22 10/08/2021 URINA LYSIS COMPL ETE UA bacteria TRACE none seen Not Available [address] [place], [address], 10/08/2021 10:34:22 10/09/19 22 10/08/2021 URINA LYSIS COMPL ETE UA mucus 1+ none seen Not Available [address] [place], [address], 10/08/2021 10:34:22 10/09/19 22 10/08/2021 URINA LYSIS COMPL ETE UA amorphous sediment NONE SEEN none seen Not Available [address] , [place], [address], 10/08/2021 10:34:22 10/09/19 22 10/08/2021 URINA LYSIS COMPL ETE comment 1 REFLEX ADDED Not Available [address] , [place], [address], 10/08/2021 10:34:22 10/09/19 22 10/08/2021 URINA LYSIS COMPL ETE UA sperm PRESEN T Not Available [address] , [place], [address], 10/08/2021 10:34:22 10/09/19 22 10/08/2021 URINA LYSIS COMPL ETE performing lab see note - [facility] [address] [facility] [id number] Not Available [address] , [place], [address], 10/08/2021 10:34:22 10/09/19 22 10/08/2021 URINE CULTU RE note See Note Order ing Provi reese: WINDOWS SECURITY ANALYSTMaritza Gann CNM Not Available [address] , [place], [address], 10/10/2021 12:40:15 10/09/19 22 10/08/2021 URINE CULTU RE urine culture See Below URINE CULTU RE(F) Kori Date/ Time: 10/08 09:00 Alessandra Date/ Time: 10/10 12:37 SOURC E: CLEAN CATCH SPEC DESC: Organ ism #1 MIXED GENIT OURIN TABATHA KENDY COLON Y COUNT : >100, 000 CFU/M L ORGAN ISM COMME NT:OR GCOM NO CLINI ZEB SIGNI FICAN T GROWT H Not Available [address] [place], [address], 10/10/2021 12:40:15 10/09/19 22 10/08/2021 URINE CULTU RE performing lab see note - [facility] [address] [place] [id number] Not Available [address] , [place], [address], 10/10/2021 12:40:15 10/14/19 22 10/13/2021 GLUCO SE POINT OF CARE note See Note Order ing Provi reese: Kam smith DO Not Available [address] , [place], [address], 10/13/2021 07:14:04 10/14/19 22 10/13/2021 GLUCO SE POINT OF CARE glucose point of care 90 mg/dL 70-99 normal Not Available [address] , [place], [address], 10/13/2021 07:14:04 10/14/19 22 10/13/2021 GLUCO SE POINT OF CARE performing lab see note [facility] - [facility] [place] [address] Not Available [address] , [place], [address], 10/13/2021 07:14:04 10/14/19 22 10/13/2021 UR DRUG SCREE N note See Note Order ing Provi reese: Kam smith DO Not Available [address] , [place], [address], 10/13/2021 07:20:20 10/14/19 22 10/13/2021 UR DRUG SCREE N ur cocaine qual NEGATI VE 150NG /mL det limit= Not Available [address] [place], [address], 10/13/2021 07:20:20 10/14/19 22 10/13/2021 UR DRUG SCREE N ur cannabinoid( THC) qual NEGATI VE 50NG/ mL det limit= Not Available [address] , [place], [address], 10/13/2021 07:20:20 10/14/19 22 10/13/2021 UR DRUG SCREE N ur amphetamine qual NEGATI VE 500NG /mL det limit= Not Available [address] , [place], [address], 10/13/2021 07:20:20 10/14/19 22 10/13/2021 UR DRUG SCREE N ur barbiturate qual NEGATI VE 200NG /mL det limit= Not Available [address] , [place], [address], 10/13/2021 07:20:20 10/14/19 22 10/13/2021 UR DRUG SCREE N ur benzodiazepi ne qual NEGATI VE 200NG /mL det limit= Not Available [address] , [place], [address], 10/13/2021 07:20:20 10/14/19 22 10/13/2021 UR DRUG SCREE N ur opiates qual NEGATI VE 300NG /mL det limit= Not Available [address] Ila Barcl[place], [place], [address], 10/13/2021 07:20:20 10/14/19 22 10/13/2021 UR DRUG SCREE N ur phencyclidin e (pcp) qual NEGATI VE 25NG/ mL det limit= Not Available [address] Ila Barclay, [place], [address], 10/13/2021 07:20:20 10/14/19 22 10/13/2021 UR DRUG SCREE N ur tricylic group qual NEGATI VE 1000N G/m det limit= Not Available [address] Ila Barclay, [place], [address], 10/13/2021 07:20:20 10/14/19 22 10/13/2021 UR DRUG SCREE N methadone urine NEGATI VE 300NG /mL det limit= Not Available [address] , [place], [address], 10/13/2021 07:20:20 10/14/19 22 10/13/2021 UR DRUG SCREE N ur MDMA (ecstacy) ql NEGATI VE 500NG /mL det limit= Not Available [address] , [place], [address], 10/13/2021 07:20:20 10/14/19 22 10/13/2021 UR DRUG SCREE N ur oxycodone ql NEGATI VE 100NG /mL det limit= Not Available [address] , [place], [address], 10/13/2021 07:20:20 10/14/19 22 10/13/2021 UR DRUG SCREE N ur buprenorphin e qual NEGATI VE 10NG/ mL det limit= Not Available [address] Ila Barclay, [place], [address], 10/13/2021 07:20:20 10/14/19 22 10/13/2021 UR DRUG SCREE N performing lab see note ML - [facility] R [address] [facility] [address] Not Available [address] Ila Barclay, [place], [address], 10/13/2021 07:20:20 10/14/19 22 10/13/2021 GLUCO SE POINT OF CARE note See Note Order ing Provi reese: Kma Gomes ki DO Not Available [address] Ila Barcl[place], [place], [address], 10/13/2021 09:40:59 10/14/19 22 10/13/2021 GLUCO SE POINT OF CARE glucose point of care 104 mg/dL 70-99 high Not Available [address] , [place], [address], 10/13/2021 09:40:59 10/14/19 22 10/13/2021 GLUCO SE POINT OF CARE performing lab see note [facility] [place] [address] Not Available [address] , [place], [address], 10/13/2021 09:40:59 10/14/19 22 10/13/2021 CORD BLOOD PH note See Note Order ing Provi reese: Kam smith DO Not Available [address] , [place], [address], 10/13/2021 13:57:29 10/14/19 22 10/13/2021 CORD BLOOD PH cord blood pH 7.23 7.110- 7.360 normal RESUL TS MAY BE AFFEC TOBY DUE TO ELAPS ED TIME OF GETTI NG THE SPECI MEN RESUL TS FROM [facility] NG COUNT Y. Not Available [address] [place], [address], 10/13/2021 13:57:29 10/14/19 22 10/13/2021 CORD BLOOD PH performing lab see note ML - [facility] [address] [facility] [place] [address] Not Available [address] [place], [address], 10/13/2021 13:57:29 10/15/19 22 10/14/2021 CBC W/AUT O DIFFE RENTI AL note See Note Order ing Provi reese: Kam smith DO Not Available [address] [place], [address], 10/14/2021 05:46:11 10/15/19 22 10/14/2021 CBC W/AUT O DIFFE RENTI AL white blood cell 8.3 10e3/ uL 4.5-13 .0 normal Not Available [address] Ila Barcl[place], [place], [address], 10/14/2021 05:46:11 10/15/19 22 10/14/2021 CBC W/AUT O DIFFE RENTI AL red blood cell 2.87 10e6/ uL 3.80-5 .10 low Not Available [address] Ila Barcl[place], [place], [address], 10/14/2021 05:46:11 10/15/19 22 10/14/2021 CBC W/AUT O DIFFE RENTI AL hemoglobin 7.2 g/dL 11.5-1 5.3 low Not Available [address] Ila [place]cl[place], [place], [address], 10/14/2021 05:46:11 10/15/19 22 10/14/2021 CBC W/AUT O DIFFE RENTI AL hematocrit 23.7 % 34.0-4 6.0 low Not Available [place] [address], [place], [address], 10/14/2021 05:46:11 10/15/19 22 10/14/2021 CBC W/AUT O DIFFE RENTI AL mean cell volume 83 fL 78.0-9 8.0 normal Not Available [address] Ila Barclay, [place], [address], 10/14/2021 05:46:11 10/15/19 22 10/14/2021 CBC W/AUT O DIFFE RENTI AL mean cell HGB 25.1 pg 25.0-3 5.0 normal Not Available [address] Ila Barclay, [place], [address], 10/14/2021 05:46:11 10/15/19 22 10/14/2021 CBC W/AUT O DIFFE RENTI AL mean cell HGB concentratio n 30.4 g/dL 31.0-3 6.0 low Not Available [address] Ila [place]cl[place], [place], [address], 10/14/2021 05:46:11 10/15/19 22 10/14/2021 CBC W/AUT O DIFFE RENTI AL red cell distribution width 15.9 % 11.0-1 5.0 high Not Available [address] [place], [place], [address], 10/14/2021 05:46:11 10/15/19 22 10/14/2021 CBC W/AUT O DIFFE RENTI AL platelet count 124 10e3/ uL 150-40 0 low Not Available [address] Ila [place]cl[place], [place], [address], 10/14/2021 05:46:11 10/15/19 22 10/14/2021 CBC W/AUT O DIFFE RENTI AL immature granulocyte % 1 0-1 normal Not Available [address] Ila Barcl[place], [place], [address], 10/14/2021 05:46:11 10/15/19 22 10/14/2021 CBC W/AUT O DIFFE RENTI AL neutrophil % 67 % 35-75 normal Not Available [address] I[place]cl[place], [place], [address], 10/14/2021 05:46:11 10/15/19 22 10/14/2021 CBC W/AUT O DIFFE RENTI AL lymphocyte % 22 % 10-50 normal Not Available [address] [place], [address], 10/14/2021 05:46:11 10/15/19 22 10/14/2021 CBC W/AUT O DIFFE RENTI AL monocyte % 10 % 0-15 normal Not Available [address] I[place]cl[place], [place], [address], 10/14/2021 05:46:11 10/15/19 22 10/14/2021 CBC W/AUT O DIFFE RENTI AL eosinophil % 1 % 0-5 normal Not Available [address] Ila [place]cl[place], [place], [address], 10/14/2021 05:46:11 10/15/19 22 10/14/2021 CBC W/AUT O DIFFE RENTI AL basophil % 0 % 0-5 normal Not Available [address] , [place], [address], 10/14/2021 05:46:11 10/15/19 22 10/14/2021 CBC W/AUT O DIFFE RENTI AL immature granulocyte # 0.05 x1000 /uL 0-0.05 normal Not Available [address] I[place]cl[place], [place], [address], 10/14/2021 05:46:11 10/15/19 22 10/14/2021 CBC W/AUT O DIFFE RENTI AL neutrophil # 5.50 x1000 /uL 1.50-8 .00 normal Not Available [address] [place]cl[place], [place], [address], 10/14/2021 05:46:11 10/15/19 22 10/14/2021 CBC W/AUT O DIFFE RENTI AL lymphocyte # 1.83 x1000 /uL 1.20-5 .20 normal Not Available [address] , [place], [address], 10/14/2021 05:46:11 10/15/19 22 10/14/2021 CBC W/AUT O DIFFE RENTI AL monocyte # 0.81 x1000 /uL 0.40-0 .90 normal Not Available [address] , [place], [address], 10/14/2021 05:46:11 10/15/19 22 10/14/2021 CBC W/AUT O DIFFE RENTI AL eosinophil # 0.04 x1000 /uL 0.00-0 .50 normal Not Available [address] , [place], [address], 10/14/2021 05:46:11 10/15/19 22 10/14/2021 CBC W/AUT O DIFFE RENTI AL basophil # 0.02 x1000 /uL 0.00-0 .30 normal Not Available [address] , [place], [address], 10/14/2021 05:46:11 10/15/19 22 10/14/2021 CBC W/AUT O DIFFE RENTI AL NRBC automated 0.0 /100_ WBC Not Available [address] , [place], [address], 10/14/2021 05:46:11 10/15/19 22 10/14/2021 CBC W/AUT O DIFFE RENTI AL performing lab see note - [address] [facility] [address] Not Available [address] , [place], [address], 10/14/2021 05:46:11 10/16/19 22 10/15/2021 CBC W/AUT O DIFFE RENTI AL note See Note Order ing Provi reese: Kam smith DO Not Available [address] , [place], [address], 10/15/2021 06:44:00 08/07/10/15/2021 CBC W/AUT O DIFFE RENTI AL white blood cell 7.7 10e3/ uL 4.5-13 .0 normal Not Available [address] Ila Barcl[place], [place], [address], 10/15/2021 06:44:00 10/16/19 22 10/15/2021 CBC W/AUT O DIFFE RENTI AL red blood cell 2.94 10e6/ uL 3.80-5 .10 low Not Available [address] [place], [place], [address], 10/15/2021 06:44:00 10/16/19 22 10/15/2021 CBC W/AUT O DIFFE RENTI AL hemoglobin 7.3 g/dL 11.5-1 5.3 low Not Available [address] [place], [place], [address], 10/15/2021 06:44:00 10/16/19 22 10/15/2021 CBC W/AUT O DIFFE RENTI AL hematocrit 24.6 % 34.0-4 6.0 low Not Available [address] [place]cl[place], [place], [address], 10/15/2021 06:44:00 10/16/19 22 10/15/2021 CBC W/AUT O DIFFE RENTI AL mean cell volume 84 fL 78.0-9 8.0 normal Not Available [address] I[place]cl[place], [place], [address], 10/15/2021 06:44:00 10/16/19 22 10/15/2021 CBC W/AUT O DIFFE RENTI AL mean cell HGB 24.8 pg 25.0-3 5.0 low Not Available [address] [place], [place], [address], 10/15/2021 06:44:00 10/16/19 22 10/15/2021 CBC W/AUT O DIFFE RENTI AL mean cell HGB concentratio n 29.7 g/dL 31.0-3 6.0 low Not Available [address] , [place], [address], 10/15/2021 06:44:00 10/16/19 22 10/15/2021 CBC W/AUT O DIFFE RENTI AL red cell distribution width 15.9 % 11.0-1 5.0 high Not Available [address] , [place], [address], 10/15/2021 06:44:00 10/16/19 22 10/15/2021 CBC W/AUT O DIFFE RENTI AL platelet count 154 10e3/ uL 150-40 0 normal Not Available [address] , [place], [address], 10/15/2021 06:44:00 10/16/19 22 10/15/2021 CBC W/AUT O DIFFE RENTI AL immature granulocyte % 1 0-1 normal Not Available [address] [place]cl[place], [place], [address], 10/15/2021 06:44:00 10/16/19 22 10/15/2021 CBC W/AUT O DIFFE RENTI AL neutrophil % 58 % 35-75 normal Not Available [address] [place], [place], [address], 10/15/2021 06:44:00 10/16/19 22 10/15/2021 CBC W/AUT O DIFFE RENTI AL lymphocyte % 32 % 10-50 normal Not Available [address] , [place], [address], 10/15/2021 06:44:00 10/16/19 22 10/15/2021 CBC W/AUT O DIFFE RENTI AL monocyte % 8 % 0-15 normal Not Available [address] , [place], [address], 10/15/2021 06:44:00 10/16/19 22 10/15/2021 CBC W/AUT O DIFFE RENTI AL eosinophil % 1 % 0-5 normal Not Available [address] , [place], [address], 10/15/2021 06:44:00 10/16/19 22 10/15/2021 CBC W/AUT O DIFFE RENTI AL basophil % 1 % 0-5 normal Not Available [address] [place]cl[place], [place], [address], 10/15/2021 06:44:00 10/16/19 22 10/15/2021 CBC W/AUT O DIFFE RENTI AL immature granulocyte # 0.09 x1000 /uL 0-0.05 high Not Available [address] [place], [place], [address], 10/15/2021 06:44:00 10/16/19 22 10/15/2021 CBC W/AUT O DIFFE RENTI AL neutrophil # 4.43 x1000 /uL 1.50-8 .00 normal Not Available [address] [place], [address], 10/15/2021 06:44:00 10/16/19 22 10/15/2021 CBC W/AUT O DIFFE RENTI AL lymphocyte # 2.42 x1000 /uL 1.20-5 .20 normal Not Available [address] [place], [address], 10/15/2021 06:44:00 10/16/19 22 10/15/2021 CBC W/AUT O DIFFE RENTI AL monocyte # 0.64 x1000 /uL 0.40-0 .90 normal Not Available [address] [place], [address], 10/15/2021 06:44:00 10/16/19 22 10/15/2021 CBC W/AUT O DIFFE RENIVETT AL eosinophil # 0.07 x1000 /uL 0.00-0 .50 normal Not Available [address] [place], [place], [address], 10/15/2021 06:44:00 10/16/19 22 10/15/2021 CBC W/AUT O DIFFE RENTI AL basophil # 0.04 x1000 /uL 0.00-0 .30 normal Not Available [address] [place], [place], [address], 10/15/2021 06:44:00 10/16/19 22 10/15/2021 CBC W/AUT O DIFFE RENIVETT AL NRBC automated 0.0 /100_ WBC Not Available [address] , [place], [address], 10/15/2021 06:44:00 10/16/19 22 10/15/2021 CBC W/AUT O DIFFE RENTI AL performing lab see note - [facility] R [address] [facility] [address] Not Available [address] , [place], [address], 10/15/2021 06:44:00 09/02/19 22 08/31/2021 US, obste tric, follo w-up No observ ation record ed. [email or web address] [facility] [address] [facility], [place], [address], 09/21/2021 11:56:13 09/08/19 US, obste tric, bioph ysica l profi le No observ ation record ed. [email or web address] [place] [facility] [address] [facility] , [place], [address], 09/10/2021 10:10:15 09/16/19 22 09/15/2021 US, obste tric, bioph ysica l profi le No observ ation record ed. [facility] [address] [place] [address] , [place], [address], 09/17/2021 00:27:10 09/16/19 22 09/15/2021 non-s tress test No observ ation record ed. [facility] [address] [place] [address] , [place], [address], 09/17/2021 00:27:11 09/22/19 22 09/22/2021 non-s tress test No observ ation record ed. [email or web address] [facility] [address] [place] [address] , [place], [address], 09/26/2021 19:30:10 09/23/19 22 09/15/2021 US, obste tric, bioph ysica l profi le No observ ation record ed. [facility] [address] [place] [address] , [place], [address], 09/22/2021 10:51:11 09/23/19 22 09/22/2021 US, obste tric, bioph ysica l profi le No observ ation record ed. [email or web address] [facility] [address] [place] [address] , [place], [address], 09/28/2021 13:00:50 09/30/19 22 09/22/2021 US, obste tric, bioph ysica l profi le No observ ation record ed. [facility]/[address] , [place], [address], 09/29/2021 10:59:28 09/30/19 22 09/07/2021 US, obste tric, bioph ysica l profi le No observ ation record ed. [facility] [place] [facility] [address] [place] [address] , [place], [address], 09/29/2021 11:43:15 10/04/19 22 10/03/2021 US, obste tric, bioph ysica l profi le No observ ation record ed. [email or web address] [place] [facility] [address] [place] [address] , [place], [address], 10/04/2021 22:59:51 10/04/19 non-s tress test No observ ation record ed. [email or web address] [place] [facility] [address] [place] [address] , [place], [address], 10/03/2021 13:08:19 10/04/19 22 10/03/2021 non-s tress test No observ ation record ed. [email or web address] [place] [facility] [address] [place] [address] , [place], [address], 10/03/2021 13:09:08 10/12/19 22 09/15/2021 non-s tress test No observ ation record ed. [facility] [place] [facility] [address] [place] [address] , [place], [address], 10/11/2021 09:01:10 10/12/19 22 09/15/2021 non-s tress test No observ ation record ed. [facility] [place] [facility] [address] [place] [address] , [place], [address], 10/11/2021 11:21:26 10/26/19 22 10/03/2021 non-s tress test No observ ation record ed. [email or web address] [place] [facility] [address] [facility] , [place], [address], 10/25/2021 11:10:31 10/26/19 22 10/03/2021 US, obste tric, bioph ysica l profi le No observ ation record ed. [facility] [place] [facility] [address] [place] [address] , [place], [address], 10/25/2021 12:47:04 Result Notes None recorded. Problems Name Problem SNOMED Code Status Onset Date Resolution Date Notes Provider Name and Address Organization Details Recorded Time Antenata l screenin g Completed [x] CF--Negat marcellus [x] MT21 46XX [-] AFP--did not have Infusion Nurse [facility], [place], [address], [place] - [facility] 10:00:41 Active immuniza tion Completed [x ] Flu Vaccine- 03/24/21 [x] Covid-Pl ans after 1st trimeste r [x] Tdap 09/07/21 Infusion Nurse [address], [place], [address], [place] - [facility] 10:00:40 Low grade squamous intraepi thelial lesion on cervical Papanico laou smear [id number] 9105 Completed 02/10/21 LGSIL [x] ob colpo 03/22 likely cin1 advise pp pap /hpv poss repeat colpo with BX if either POS Infusion Nurse [address], [place], [address], [place] - [facility] 10:00:40 Past pregnanc y history of gestatio nal diabetes mellitus [id number] Completed [x] Hemoglob in A1C -5.5% [x] Early 1 hr gtt @ 16 wks Diet controll ed with 3rd pregnanc y Infusion Nurse [facility] [address], [place], [address], [place] [facility] 10:00:40 Low grade squamous intraepi thelial lesion on cervical Papanico laou smear [id number] 9105 Active 02/10/21 LGSIL [x] ob colpo 03/22 likely cin1 advise pp pap /hpv poss repeat colpo with BX if either POS Infusion Nurse [facility] [place], [place], [address], [place] [facility] 10:00:41 Past pregnanc y history of gestatio nal diabetes mellitus [id number] Completed 09/14/2021 [x] Hemoglob in A1C -5.5% [x] Early 1 hr gtt @ 16 wks Diet controll ed with 3rd pregnanc y Carmen Vicente null, [place] - [facility] 13:29:40 Deliveri es by Completed Elective C/S X 2 after shoulder dystocia with 1st delivery . Plan Rpt C/S with BS SCHED 10/13/21 with SMO [facility] [address], [place], [address], [place] [facility] 10:00:41 Shoulder dystocia - delivere d Completed 1st pregnanc y G1, ~7#15 ba by ok now (AWAIT RECORDS) see below [facility] [address], [place], [address], [place] [facility] 10:00:40 Counseli ng for steriliz ation done [id number] Completed [x] sign papers at 28 wk DONE [facility] [address], [place], [address], [place] [facility] 10:00:41 Deliveri es by Completed 09/14/2021 Elective C/S X 2 after shoulder dystocia with 1st delivery . Plan Rpt C/S with TL Carmen Vicente null, [place] [facility] 13:29:45 Asthma [id number] Active Albutero l inhaler PRN [facility] [address], [place], [address], [place] [facility] 10:00:41 Shoulder dystocia - delivere d [id number] Completed 10/27/2021 1st pregnanc y G1, ~7#15 ba by heather now (AWAIT RECORDS) see below Quiana Correia null, [place] [facility] 16:50:01 High risk pregnanc y [id number] Completed 10/27/2021 Prior C/S x2 Quiana Corre[place] [facility] 16:49:58 [place] ht [id number] Active BMI 27.1 [facility] [address], [place], [address], [place] [facility] 10:00:40 Ex-smoke r [id number] Active Quit 12/29 [facility] [address], [place], [address], [place] [facility] 10:00:40 Asthma [id number] Completed Albutero l inhaler PRN [facility] [address], [place], [address], [place] [facility] 10:00:41 Depressi ve disorder [id number] Completed Zoloft 50 mg QD [facility] [address], [place], [address], [place] [facility] 10:00:41 High risk pregnanc y [id number] Completed Prior C/S x2 [facility] [address], [place], [address], [place] [facility] 10:00:41 [facility] [id number] Completed BMI 27.1 [facility] [address], [place], [address], [place] [facility] 10:00:40 Ex-smoke r [id number] Completed Quit 12/29 [facility] [address], [place], [address], [place] [facility] 10:00:40 Tachycar bharti [id number] Completed [ ] cardio referral 2018 had had HOLTER at [facility]/sinu s olvin [facility] [address], [place], [address], [place] [facility] 10:00:41 Anemia [id number] Completed 34 wk Hb 9.9. FeSO4 Infusion Nurse [facility] [address], [place], [address], [place] [facility] 2 10:00:40 Benign gestatio nal thromboc ytopenia [id number] Completed 34 wk plt 146; 03/2021: 230 @ obx' [ ] plan next repeat at 38 wk with Preop labs per JYOTI Infusion [facility] [address], [place], [address], [place] [facility] 2 10:00:41 Benign gestatio nal thromboc ytopenia [id number] Completed 10/27/2021 34 wk plt 146; 03/2021: 230 @ obx' [ ] plan next repeat at 38 wk with Preop labs per JYOTI Quiana Correia [place] [facility] 2 16:50:10 Depressi ve disorder 62685755 Active Zoloft 50 mg QD Infusion Nurse [facility] [address], [place], [address], [place] [facility] 2 10:00:41 Anemia 609647350 Active 34 wk Hb 9.9. FeSO4 Infusion Nurse [facility] [address], [place], [address], [place] [facility] 2 10:00:40 Tachycar bharti 5772899 Active [ ] cardio referral 2018 had had H[facility] at [facility] s olvin Infusion Nurse [facility] [address], [place], [address], [place] [facility] 2 10:00:41 Gestatio nal diabetes mellitus 53769203 Completed Current pregnanc y diagnose d 29 weeks. Diet controll ed as of 35 weeks Infusion Nurse [facility] [address], [place], [address], [place] [facility] 2 10:00:41 Uses oral contrace ption 2454331 Completed 201802/16/2021 Quiana [place]re[place] [facility] 1 10:12:47 Epigastr ic pain 13381049 Completed 201803/21/2021 Carmen Vicente [place] [facility] 2 14:47:15 Amenorrh ea 72421450 Completed 201803/21/2021 Carmen [place] [facility] 2 14:47:12 Supervis ion of high risk pregnanc y with history of previous section done [id number] 9106 Completed 202010/27/2021 Quiaan [place]re[place] [facility] 2 16:50:05 Pregnanc y 22651961 Completed 202003/21/2021 Carmen [place] [facility] 2 14:47:18 Urinary tract infectio n in pregnanc y 490571525 Completed 2021 Rx Keflex; culture sent-neg ative Infusion Nurse [facility] [address], [place], [address], [place] [facility] 2 10:00:41 Urinary tract infectio n in pregnanc y 397203127 Completed 202109/14/2021 Rx Keflex; culture sent-neg ative Carmen [place] [facility] 2 13:29:52 Glucose toleranc e test during pregnanc y - baby not yet delivere d outside referenc e range 571779264 Completed 202110/27/2021 1hr GTT 172 [x] 3hr GTT ABNL Quiana [place] [facility] 2 16:49:54 Glucose toleranc e test during pregnanc y - baby not yet delivere d outside referenc e range 065875105 Completed 2021 1hr GTT 172 [x] 3hr GTT ABNL [facility] [address], [place], [address], [place] [facility] 2 10:00:40 Problem Notes Documentation Provider Name and Address Organization Details Recorded Time Pathology Note : [address] [address] PATIENT NAME: ASHLEY SINGLETARY UNIT NO.: [id number] ATTENDING DOC: Gladys Avendano DO ROOM NO.: [id number] ADMISSION DATE: 10/13/21 LOCATION: OB BIRTHDATE: [birth year] ACCT NUM: [id number] DICTATED BY: Magdaleno Ortiz MD ___ _ TEXT [facility] Specimen Number: [id number] [employer] Accession Number: [id number] Collection Date : 2021-10-13 Received Date : 2021-10-16 Reported Date : 2021-10-17 REPORT TITLE PATHOLOGY REPORT FINAL DIAGNOSIS A. PLACENTA, 673 GRAMS: -SMALL PLACENTAL INFARCTION. -NEGATIVE FOR CHORIOAMNIONITIS OR VILLITIS. -THREE VESSEL UMBILICAL CORD, NO PATHOLOGIC DIAGNOSIS. B. BILATERAL FALLOPIAN TUBES: -NO PATHOLOGIC DIAGNOSIS. Pathologist Signature Magdaleno Ortiz M.D., Pathologist Electronic Signature : 2021-10-17 14:48 CLINICAL INFORMATION Preoperative Diagnosis: 25-year-old female, 39 IUP. Patient desired sterilization. Gestational diabetes. Postoperative Diagnosis: Symptoms/Radiologic Findings: Procedure: SPECIMENS: A. Placenta B. Bilateral fallopian tubes MICROSCOPIC EXAMINATION A. Sections of cord shows three vessels without infarction or inflammation. Membrane roll shows amnion, chorion and adherent decidua without evidence for meconium exposure or acute membrane inflammation. Placenta are third trimester type without inflammation. No vasculopathy is identified. Peripheral section of placenta shows infarction with adjacent edema in fibrin. B. Bilateral fallopian tubes are unremarkable. GROSS DESCRIPTION GEMINIASHLEY [id number] PATHOLOGY REPORT Continu A. Container A is labeled Gemini, #1 placenta. Received in formalin is a 673 gram, 20.0 x 17.0 x 3.9 cm gallardo placenta with attached membranes and segment of umbilical cord. The 40.0 cm in length x 1.3 cm in diameter birmingham-white, trivascular umbilical cord is paracentrally inserted. The membranes are pink-birmingham, semitranslucent, and have a 70/30% marginal/circum-marginal insertion. The point of rupture cannot be determined. The surface is blue-mcbride with arborizing vasculature and subchorionic fibrin thrombus involving approximately 10% of the surface. The amnion is received partially stripped from the chorion and is focally mucinous. The maternal surface is diffusely disrupted and comprised of well-developed maroon-mcbride cotyledons. There are few indurated, birmingham-yellow areas, 2.5 cm in greatest dimension, involving less than 10% of the placental disc. The remainder of the cut surface are red-brown and spongy. There is minimal loosely adherent blood clot corresponding to the focal areas of disruption, involving less than 10% of the placental disc. [employer] sections are submitted as follows: A1 - membrane roll and cord; A2-A3 - central parenchyma, cord insertion, paired sections; A4-A5 - peripheral parenchyma showing indurated birmingham-yellow area, paired sections; A6 - peripheral parenchyma showing loosely adherent blood clot. B. Container B is labeled Gemini, #2 bilateral fallopian tubes. Received in formalin are two undesignated, fimbriated fallopian tube segments (5.3 cm in length x 0.7 cm in diameter and 3.7 cm in length x 0.7 cm in diameter). The segments have pink-birmingham, glistening serosa and show unremarkable, pinpoint lumina. [employer] sections are submitted as follows: B1 - first, longer fallopian tube fimbriated end, entirely and cross sections; B2 - second, shorter fallopian tube fimbriated end, entirely and cross sections. [facility] CPT CODES A) 67666 B) 92239 COPY TO Magdaleno Ortiz PERFORMING SITE Posto7. ASSUMES NO RESPONSIBILITY FOR THE ACCURACY OF CPT CODES PROVIDED WHICH ARE FOR INFORMATIONAL PURPOSES ONLY. CPT CODES ARE PAYOR SPECIFIC AND CPT CODING IS THE SOLE RESPONSIBILITY OF THE BILLING ENTITY. THE FOLLOWING TESTS (CD117,CMV,EBV TOÑO,H.PYLORI, HEPATITIS B CORE AB, HEPATITIS B SURFACE AB, HHV-8, HSV 1 / 2, HER1, KAPPA TOÑO, LAMBDA TOÑO,PNEUMOCYSTIS,AND PROCOLLAGEN RUO) WERE DEVELOPED AND PERFORMANCE CHARACTERISTICS HAVE BEEN DETERMINED BY ASHLEY LUZ [id number] PATHOLOGY REPORT Continu [place]. THEY HAVE NOT BEEN CLEARED OR APPROVED BY THE [place]. FOOD AND DRUG ADMINISTRATION. THE FDA HAS DETERMINED THAT SUCH CLEARANCE OR APPROVAL IS NOT NECESSARY. PERFORMANCE CHARACTERISTICS REFER TO THE ANALYTICAL PERFORMANCE OF THE TESTS. THE TECHNICAL COMPONENT AND GROSS DESCRIPTION IS PERFORMED AT [address] [facility] [place] [address]. THE PROFESSIONAL COMPONENT PERFORMED AT [facility] [address] [place] [address], [address], [place] [address] at 1448 Signature on File Magdaleno Ortiz MD Dictated: 10/13/21 0819 Transcribed: Transcribed by: ADAM Jenkins Logic: Attending Provider: LAURA HAYES Referring Provider: LAURA HAYES Consulting Provider: VIKTOR SILVER Admitting Provider: LAURA Avendano, [address], [address], [place] [facility] 10/19/2021 00:19:09 Procedures Surgical History Date Name Laterality Status Provider Name and Address Organization Details Recorded Time section completed Quiana Olancha [place] [facility] 10/27/2021 16:50:51 Tubal Ligation completed Carmen Jules [place] [facility] 11/24/2021 08:14:33 OB Ultrasound Summary completed Lucille [place] [facility] 10/03/2021 11:58:25 OB Ultrasound Summary completed Lucille [place] [facility] 09/22/2021 15:53:21 OB Ultrasound Summary [place]ille [place] [facility] 09/15/2021 14:13:24 OB Ultrasound Summary completed Heavan [place] [facility] 09/07/2021 16:02:49 022 OB Ultrasound Summary completed Eliasmichelle [place]ando [place] [facility] 06/08/2021 14:06:55 022 Colposcopy completed Cielo Khan MD [address], [place], [address], [place] [facility] 03/22/2021 12:58:04 022 Colposcopy completed Carmen Vicenet [place] [facility] 11/24/2021 08:16:50 022 colposcopy completed Elvi GOETZ [address], [place], [address], [place] [facility] 03/24/2021 15:30:15 021 OB Ultrasound Summary completed Karsonkarla [place]ando [place] [facility] 03/09/2021 16:07:57 021 OB Ultrasound Summary completed Lucille Sierra [place] [facility] 02/27/2021 11:16:22 021 OB Ultrasound Summary completed Eliasmichelle Mando [place] [facility] 02/20/2021 14:14:11 021 OB Ultrasound Summary completed Karsonkarla [place] [facility] 02/13/2021 13:15:37 021 Date of Last Pap Smear completed Carmen Jules [place] [facility] 03/21/2021 14:44:17 021 Nexplanon Removal completed Brianda Mercado APRN [address], [place], [address], [place] [facility] 11/04/2020 15:54:00 021 Contraceptive Implant Removal completed Ester Lopez [place] [facility] 11/04/2020 13:48:02 020 delivery completed Carmen [place]ules [place] [facility] 02/10/2021 09:49:19 020 Contraceptive Implant Insertion completed Brianda Mercado APRN [address], [place], [address], [place] [facility] 09/19/2020 17:06:50 020 Medication Reconcilliation completed [place]iru Colon [place] [facility] 03/25/2019 11:04:27 018 delivery completed Carmen Vicente [place] [facility] 02/10/2021 09:49:40 cholecystectomy completed Susanna Holt [place] [facility] 01/12/2019 14:25:15 Imaging Results None recorded. Procedure Notes None recorded. Medical Equipment None Reported. Allergies Allergen ID Allergen Name Allergen Category Reaction Reaction Severity Criticality Documentation Date Start Date Code Code System Note Provider Name and Address Organization Details Recorded Time [id number] Bactrim medicatio n hives Not available Not available 02/01/2021 87713 9 RxNorm Ester horton [place] [facility] 11:16:38 Medications Name Sig Start Date Stop Date Status Note LastModified by Organization Details LastModified Time cyclobenzap rine 10 mg tablet 09/19 completed Not Available Not Available Not Available amoxicillin 500 mg capsule Take 1 capsule every 8 hours by oral route for 7 days. 02/10 completed Not Available Not Available Not Available acetaminoph en 325 mg tablet 09/19 completed Not Available Not Available Not Available Vitamin B-6 25 mg tablet Take 1 tablet 3 times a day by oral route. 09/15 completed Not Available Not Available Not Available fluconazole 150 mg tablet 1 tablet now and may repeat in 3-4 days if symptoms unresolve d 09/19 completed Not Available Not Available Not Available hydrocodone 5 mg-acetamin ophen 325 mg tablet 02/10 completed Not Available Not Available Not Available promethazin e 12.5 mg tablet Take 1 tablet every 4-6 hours by oral route as needed. 09/15 completed Not Available Not Available Not Available phenazopyri dine 200 mg tablet 02/10 completed Not Available Not Available Not Available ondansetron HCl 4 mg tablet 02/22 completed Not Available Not Available Not Available Vitamin C 500 mg chewable tablet CHEW AND SWALLOW 1 TABLET DAILY 30 MINTUES BEFORE TAKING IRON TABLET. active Not Available Not Available No t Available sulfamethox azole 800 mg-trimetho prim 160 mg tablet 02/10 completed Not Available Not Available Not Available oxycodone-a cetaminophe n 5 mg-325 mg tablet 10/27 completed Not Available Not Available Not Available famotidine 20 mg tablet TAKE 1 TABLET BY MOUTH TWICE A DAY active Not Available Not Available No t Available Lice Treatment (permethrin ) 1 % topical liquid APPLY A SUFFICIEN T AMOUNT OF SHAMPOO BY TOPICAL ROUTE ONCE ALLOW TO REMAIN ON HAIR FOR 10 MINUTES BEFORE RINSING OFF WITH WATER 02/13 completed Not Available Not Available Not Available Celexa 20 mg tablet Take 1 tablet every day by oral route for 30 days. 09/19 completed Not Available Not Available Not Available hydrocortis one 1 % topical cream APPLY A THIN LAYER TO THE AFFECTED AREA(S) BY TOPICAL ROUTE EVERY DAY 09/15 completed Not Available Not Available Not Available cephalexin 500 mg capsule Take 1 capsule twice a day by oral route as directed for 7 days. 09/07 completed Not Available Not Available Not Available ferrous sulfate 325 mg (65 mg iron) tablet TAKE 1 TABLET BY MOUTH EVERY DAY active Not Available Not Available No t Available promethazin e 25 mg tablet 03/24 completed Not Available Not Available Not Available Citrucel 500 mg tablet Take 2 tablets twice a day by oral route as needed. 02/10 completed Not Available Not Available Not Available progesteron e micronized 200 mg capsule Take 1 capsule every day by oral route for 30 days. 02/20 completed Not Available Not Available Not Available fluoxetine 10 mg capsule TAKE 1 CAPSULE BY MOUTH EVERY DAY active Not Available Not Available No t Available docusate sodium 100 mg capsule TAKE 1 CAPSULE BY MOUTH THREE TIMES A DAY active Not Available Not Available No t Available sertraline 25 mg tablet Take 1 tablet every day by oral route for 30 days. 03/24 completed Not Available Not Available Not Available omeprazole 20 mg capsule,del ayed release Take 1 capsule every day by oral route for 30 days. 02/10 completed Not Available Not Available Not Available ibuprofen 600 mg tablet as needed active Not Available Not Available No t Available polyethylen e glycol 3350 17 gram/dose oral powder MIX 17 GRAMS IN 8 OUNCES OF WATER AND DRINK AT BEDTIME NEEDED FOR CONSTIPAT ION. 02/10 completed Not Available Not Available Not Available albuterol sulfate HFA 90 mcg/actuati on aerosol inhaler 2021 active Not Available Not Available Not Avai lable ondansetron 4 mg disintegrat ing tablet TAKE 1 TABLET BY MOUTH EVERY 6 TO 8 HOURS FOR NAUSEA 02/10 completed Not Available Not Available Not Available fluticasone propionate 50 mcg/actuati on nasal spray,suspe nsion SPRAY 1 SPRAY BY NASAL ROUTE EVERY DAY active Not Available Not Available No t Available sertraline 50 mg tablet Take 1 tablet every day by oral route. 09/15 completed Not Available Not Available Not Available amoxicillin 875 mg-potassiu m clavulanate 125 mg tablet TAKE 1 TABLET BY MOUTH EVERY 12 HOURS 02/22 completed Not Available Not Available Not Available oxycodone 5 mg tablet 02/22 completed Not Available Not Available Not Available Sleep Aid (doxylamine ) 25 mg tablet Take 1 tablet every day by oral route at bedtime. 09/15 completed Not Available Not Available Not Available Enpresse 50-30 (6)/75-40(5 )/125-30(10 ) tablet Take 1 tablet every day by oral route for 28 days. 04/24 completed Not Available Not Available Not Available nitrofurant oin monohydrate /macrocryst als 100 mg capsule Take 1 capsule every 12 hours by oral route for 7 days. 02/10 completed Not Available Not Available Not Available lactulose 10 gram/15 mL oral solution 02/22 completed Not Available Not Available Not Available omeprazole 20 mg tablet,braeden yed release 02/13 completed Not Available Not Available Not Available DOK 100 mg tablet 02/22 completed Not Available Not Available Not Available 28 mg iron-800 mcg tablet Take 1 tablet every day by oral route as directed for 30 days. 2021 active Not Available Not Available Not Avai lable OneTouch Verio test strips USE TO TEST FOUR (4) TIMES DAILY active Not Available Not Available No t Available Easy Touch Alcohol Prep Pads USE DIRECTED FOUR (4) TIMES DAILY 10/27 completed Not Available Not Available Not Available PNV 29-1 29 mg iron-1 mg tablet 09/15 completed Not Available Not Available Not Available OneTouch Verio Flex Meter TAKE DIRECTED 10/27 completed Not Available Not Available Not Available 28 mg-800 mcg tablet Take 1 tablet every day by oral route for 90 days. 02/22 completed Not Available Not Available Not Available OneTouch Delica Plus Lancet 33 gauge USE TO TEST FOUR TIMES DAILY 10/27 completed Not Available Not Available Not Available Zafemy 150 mcg-35 mcg/24 hr transdermal patch Apply 1 patch every week by transderm al route for 21 days. 02/10 completed Not Available Not Available Not Available Vitals Date Recorded Body height Body mass index (BMI) Body weight Pain severity - 0-10 verbal numeric rating [Score] - Reported Systolic And Diastolic Provider Name and Address Organization Details Last Updated DateTime 09/07/2021 157.48 cm 28.5 kg/m2 09054.40 972 g 0 104/64 mm[Hg] Daniellecheryl Martin [facility] 2 16:43:36 Date Recorded Body height Body weight Systolic And Diastolic Provider Name and Address Organization Details Last Updated DateTime 09/15/2021 157.48 cm 04597.5944 6 g 118/72 mm[Hg] Carmen Jules [facility] 09/15/2021 14:22:10 Date Recorded Body height Body mass index (BMI) Body weight Systolic And Diastolic Provider Name and Address Organization Details Last Updated DateTime 09/22/2021 157.48 cm 28.5 kg/m2 09111.409 72 g 108/68 mm[Hg] Lyn Mallika [facility] 09/22/2021 16:16:12 Date Recorded Body height Body mass index (BMI) Body weight Systolic And Diastolic Provider Name and Address Organization Details Last Updated DateTime 10/03/2021 157.48 cm 28.9 kg/m2 30107.594 46 g 112/72 mm[Hg] Carmen Vicente [facility] 10/03/2021 10:32:43 Date Recorded Body height Body mass index (BMI) Body weight Pain severity - 0-10 verbal numeric rating [Score] - Reported Systolic And Diastolic Provider Name and Address Organization Details Last Updated DateTime 10/27/2021 157.48 cm 24.9 kg/m2 16584.56 g 0 116/74 mm[Hg] Quiana Correia [facility] 2 16:49:12 Social History Question Answer Notes LastModified by Organizat ion Details LastModified Time Tobacco Smoking Status Former Smoker Carmen [place] [facility] 02/10/2021 09:51:37 Do You Have An Advance Directive? No [email or web address] Information n ot available 09/19/2020 Are You Blind Or Do You Have Difficulty Seeing? No [email or web address] Information n ot available 01/12/2019 Is Blood Transfusion Acceptable In An Emergency? Yes [email or web address] Information not available 09/19/2020 What Is Your Level Of Caffeine Consumption? Heavy [email or web address] Information not available 09/19/2020 How Much Tobacco Do You Chew? None [email or web address] Information not available 09/19/2020 In The 14 Days Before Symptom Onset, Have You Had Close Contact With A Laboratory-confirm ed COVID-19 While That Case Was Ill? No [email or web address] Information n ot available 10/31/2020 In The 14 Days Before Symptom Onset, Have You Had Close Contact With A Person Who Is Under Investigation For COVID-19 While That Person Was Ill? No [email or web address] Information not available 10/31/2020 Have You Been To An Area Known To Be High Risk For COVID-19? No [email or web address] Information not available 10/31/2020 Are You Deaf Or Do You Have Serious Difficulty Hearing? No [email or web address] Information not available 01/12/2019 What Type Of Diet Are You Following? REGULAR Information n ot available 09/19/2020 Which Illicit Or Recreational Drugs Have You Used? Declines Information not available 09/19/2020 Have You Processed Blood Or Body Fluids From An Ebola Virus Disease Patient Without Appropriate PPE? No [email or web address] Information not available 10/31/2020 Do You Reside In Or Have You Traveled To An Area Where Ebola Virus Transmission Is Active? No [email or web address] Information not available 10/31/2020 What Is The Highest Grade Or Level Of School You Have Completed Or The Highest Degree You Have Received? [id number] [email or web address] Information not available 01/12/2019 Have There Been Any Changes To Your Family Or Social Situation? No [email or web address] Information no t available 10/31/2020 How Hard Is It For You To Pay For The Very Basics Like Food, Housing, Medical Care, And Heating? Not Very Hard [email or web address] Information not available 10/31/2020 What Is The Fluoride Status Of Your Home? Unknown [email or web address] Information not available 10/31/2020 Have You Recently Or Are You Planning To Travel To An Area With Zika Virus? No [email or web address] Information not available 10/31/2020 Live Alone Or With Others? With Others [email or web address] Information not available 09/19/2020 Do You Have A Medical Power Of Wash Rack Operator? No [email or web address] Information not available 10/31/2020 What Was The Date Of Your Most Recent Tobacco Screening? 10/27/2021 [email or web address] Information not available 10/27/2021 How Many Children Do You Have? 3 [email or web address] Information not available 09/19/2020 Performs Monthly Self-breast Exam? Yes [email or web address] Information no t available 09/19/2020 Do You Use Protection During Sex? Always [email or web address] Information not available 09/19/2020 What Is Your Relationship Status? Single Information not available 09/19/2020 Seat Belts Used Routinely Yes [email or web address] Information not available 09/19/2020 Are You Sexually Active? Yes [email or web address] Information not available 09/19/2020 Do You Have Smoke And Carbon Monoxide Detectors In Your Home? Yes Information not available 10/31/2020 At What Age Did You Start Smoking Tobacco? 4 [email or web address] Information not available 09/19/2020 Are You Passively Exposed To Smoke? No [email or web address] Information no t available 10/31/2020 How Much Tobacco Do You Smoke? 0.25 PPD [email or web address] Information not available 01/12/2019 General Stress Level Medium [email or web address] Information not available 09/19/2020 Do You Use Sunscreen Routinely? Yes [email or web address] Information not available 09/19/2020 How Many Years Have You Smoked Tobacco? 1 [email or web address] Information not available 01/12/2019 Do You Have Difficulty Walking Or Climbing Stairs? No [email or web address] Information not available 01/12/2019 Sex: Female Functional Status Question Answer Note LastModified by Organizat ion Details LastModified Time Do you or have you ever used smokeless tobacco? Never used smokeless tobacco [email or web address] Information not available 05/12/2019 Are you currently employed? No Information not available 09/19/2020 Do you have transportation difficulties? No Information not available 10/31/2020 Are you able to care for yourself independently? Yes [email or web address] Information not available 10/31/2020 Do you have difficulty dressing, bathing, grooming, or toileting? No [email or web address] Information not available 01/12/2019 Do you or have you ever used e-cigarettes or vape? Never used electronic cigarettes [email or web address] Information not available 09/19/2020 What is your exercise level? None [email or web address] Information not available 09/19/2020 Do you use any illicit or recreational drugs? No [email or web address] Information not available 10/31/2020 Do you or have you ever used any other forms of tobacco or nicotine? No [email or web address] Information not available 10/31/2020 What is your level of alcohol consumption? None Information not available 09/19/2020 What is your status? [email or web address] Information no t available 03/24/2021 Are you able to walk? YESWOREST [email or web address] Information not available 09/19/2020 Do you have difficulty doing errands alone? No Information not available 01/12/2019 Mental Status Question Answer Note LastModified by Organizat ion Details LastModified Time Do you feel stressed (tense, restless, nervous, or anxious, or unable to sleep at night)? [id number] [email or web address] Information not available 01/12/2019 Do you have difficulty concentrating, remembering or making decisions? No [email or web address] Information no t available 01/12/2019 Family History Relationship Description Onset Age of this Age Resolved Age Notes LastModified by Organization Details LastModified Time Mother Anxiety disorder [email or web address] Not available 2018 14:31:18 Mother Depressive disorder [email or web address] Not available 2018 14:31:38 Maternal Grandmother Anxiety disorder Not available 2018 14:31:18 Maternal Grandmother Depressive disorder [email or web address] Not available 2018 14:31:38 Sister Anxiety disorder [email or web address] Not available 2018 14:31:18 Sister Depressive disorder [email or web address] Not available 2018 14:31:38 Paternal Grandmother Malignant tumor of breast great grandm other also Not available 01/12/2019 14:32:12 Paternal Grandmother Malignant neoplastic disease [email or web address] Not available 2018 14:33:47 Paternal Grandfather Cerebrovascu lar accident [email or web address] Not available 06/2018 14:32:26 Maternal Uncle Suicide [email or web address] Not available 01/13/20 19 14:32:50 Father Calcium renal calculus [email or web address] Not available 2018 14:33:11 Medical History Condition Response Pancreatitis N Other N Atrial Fibrillation N congenital heart disease N Blood Diseases N Hyperthyroidism N Rheumatoid arthritis N Blood Transfusion N Erectile Dysfunction N amputation N Skin Lesions N Depression N Pneumonia N Incontinence N Murmur N Edema N Alzheimer's Disease N Migraine Headaches N Tobacco Abuse N Anxiety Disorder N Hemorrhoids N Obesity N Vision or Eye Problems N Arthritis N Restless Leg Syndrome N Polyps N Infertility N Carpal Tunnel N Acid Reflux (GERD) N Cancer N Varicosities N Stroke N Tendonitis N Crohn's Disease N Hypercholesterolemia N Skin Cancer N Headaches N Fibromyalgia N Irritable Bowel Syndrome N Anal Fissure N Kidney Disease N Heart Problems N Hospitalizations N Gallstones N Kidney or Bladder Problems N Goiter N Acne N Eating Disorder N Martin's Esophagus N Hypertriglyceridemia N Constipation N Embolism N Vitamin B12 Deficiency N Deviated Septum N AIDS/HIV N Myocardial Infarction N Asthma N Mitral Valve Disorders N Vertigo N Hepatitis N Thyroid Cancer N Neuropathy N History of DVT N Herniated Disc N Chicken Pox N Von Willebrands Disease N Thrombophilias N Breast Cancer N Hernia N Plantar Fasciitis N Hypothyroidism N Lung Disease N Defects or Inherited Disease N Breast Problem N Ovarian Cyst N Anesthesia Complications N Testosterone Deficiency N Interstitial Cystitis N Congenital Anomalies N Hypoglycemia N Blood clot N Vitamin D Deficiency N Cellulitis N Endometriosis N Bladder or Kidney Problems N Fracture N Colorectal Cancer N Panic Disorder N Schizophrenia N Concussion N Spina Bifida N Osteoarthritis N Parkinson's Disease N Disc Protrusion N STI N Esophagitis N Angina N Thyroid Problems N GI Problems N ADD/ADHD N Anemia N Multiple Sclerosis N Abnormal PAP Y Lumbago N Mental Illness N Psychiatric Illness N Diabetes N Ovarian Cancer N Degenerative Disc Disease N Seizures/Epilepsy N Hyperlipidemia N Syncope N Insomnia N Eczema N Abuse/Domestic Violence N Attention Deficient Disorder N Dementia N Ulcerative colitis N Cerebrovascular Disease N Depression N Guillain-[place] N Sleep Apnea N Aneurysm N Bronchitis N Heart Disease N Hypertension N Pre-Eclampsia N Suicidal Ideation N Osteoporosis N Gynecological History Statement/Question Response Abnormal Pap Y Flow Moderate Date of LMP 01/05/2021 On BCP's at Conception? N STIs/STDs N Colposcopy 03/22/2021 HPV Vaccine Y Duration of Flow (days) 3 Current Control Method Tubal Ligat ion Age at First Child 20 Sexually Active? Y Date of Last Cervical Culture 02/10/2021 Menses Monthly No Date of Last Pap Smear 02/10/2021 Sexual Problems? N LMP Approximate Obstetrics History GPAL:G 4 P 4 0 0 4 Type Value Multiple Births 0 Full Term 4 Induced 0 Spontaneous 0 Premature 0 Living 4 Ectopics 0 Total 4 Immunizations Vaccine Type Date Status Note Provider Nam e and Address Organization Details Recorded Time Influenza, split virus, quadrivalent, preservative [address] [facility] 02/23/2020 12:09:43 Influenza, split virus, quadrivalent, preservative 2 completed Infusion Nurse MOB [facility] [address], [address], [facility] 03/24/2021 16:22:51 Tdap [address] [facility] 09/07/2021 17:13:59 Past Encounters Encounter ID Performer Location Encounter Start Date Encounter Closed Date Diagnosis/Indication Diagnosis SNOMED-CT Code Diagnosis ICD10 Code Diagnosis Note [id number] Melissa Lal [address] [place] [address] 01/12/2019 14:02:16 01/12/2019 15:32:31 Amenorrhea 58387491 N91.2 Mixed anxi ety and depressive disorder 645281672 F41.8 Chronic constipation 236 314190 K59.09 Epigastric pain 11180430 R10.13 [id number] Julia Yoon [facility] [address] [place] [address] 02/13/2019 16:00:03 02/16/2019 13:16:11 Nausea 327428245 R11.0 Dental abscess 589826137 K04.7 Epigastric pain 28453616 R10.13 Amenorrhea 29286269 N91. 2 [id number] Melissa Lal [address] [place] [address] 03/25/2019 11:02:04 03/25/2019 12:06:07 Epigastric pain 16590711 R10.13 pt has an appointmen t with Dr Silva 1.23.20 Increased frequency of urination 823590518 R35.0 Influenza- like symptoms 621539900 R68.89 [id number] Julia Yoon [address] [place] [address] 04/24/2019 14:44:48 04/24/2019 16:17:19 Possible 563235370 Z32.00 Urine preg hailey test positive 034972688 Z32.01 [id number] Julia Yoon [address] [place] [address] 02/23/2020 10:43:20 02/23/2020 11:51:21 Epigastric pain 10672682 R10.13 Mixed anxi ety and depressive disorder 254268365 F41.8 Administra tion of influenza vaccine 75194471 Z23 [id number] Brianda Mercado APRN [facility] [employer] [address] [place] [address] [place] [id number] 09/19/2020 16:08:44 09/19/2020 17:26:26 Contraception care management 532330961 Z30.9 Normal bod y mass index 73551052 Z68.23 Constipation 19262366 K5 9.00 [id number] Brianda Mercado APRN [facility] [employer] [address] [place] [address] [place] [id number] 10/31/2020 10:23:55 10/31/2020 11:12:58 Contraception care management 945213522 Z30.9 Vaginal irritation 83858 6004 N89.8 [id number] Melissa Lal [address] [place] [address] 11/01/2020 14:14:46 11/01/2020 17:05:45 [id number] ROGERIO Koch [employer] [address] [place] [address] [place] [id number] 11/04/2020 13:33:35 11/04/2020 14:28:34 Removal of subcutaneous contraceptive 193058310 Z30.46 [id number] MD Marli [place] [employer] [address] [place] [address] [place] [id number] 02/10/2021 08:58:02 02/10/2021 10:44:17 Uncertain viability of 742494823 O36.80X9 Current hCG levels consistent with to slightly behind anticipate d levels for dates of 5+1 but not discordant with initial positive test only 3 days ago. hCG levels concordant with not yet seeing distinctiv e gestationa l sac. No obvious sonographi c stigmata of ectopic but cannot exclude at this point. Does not appear to have acute adnexal or abdominal pain or tenderness . Rh+ Abdominal pain in early 062846599 R10.9 Nonacute pain. History of cramping and bloating symptoms and constipati on predating and currently Screening for malignant neoplasm of cervix 061968321 Z12.4 Screening for Chlamydia trachomatis 544608186 Z11.8 Supervisio n of high risk with history of previous section done 4667721513 9106 O09.899 Reports 2 prior section and prior shoulder dystocia. Record request [id number] DO Faustina Wallis [employer] [address] [place] [address] [place] [id number] 02/13/2021 12:56:59 02/13/2021 14:27:50 Supervision of high risk with history of previous section done 3527832719 9106 O09.899 Serum prog esterone level outside reference range 020637691 R79.89 Early stag e of 943744105 Z34.91 [id number] DO Faustina Wallis [employer] [address] [place] [address] [place] [id number] 02/20/2021 13:59:33 02/20/2021 15:35:15 Supervision of high risk with history of previous section done 0108271373 9106 O09.899 Serum prog esterone level outside reference range 060439012 R79.89 Early stag e of 174041797 Z34.91 [id number] DO Faustina Wallis [employer] [address] [place] [address] [place] [id number] 02/27/2021 10:58:02 02/27/2021 12:15:38 Supervision of high risk with history of previous section done 6710905129 9106 O09.899 Serum prog esterone level outside reference range 682026402 R79.89 Early stag e of 395783176 Z34.91 Gestation period, 6 weeks 05226970 Z3A.01 Nausea and vomiting 1693 2000 R11.2 Heartburn 06478772 R12 Depressive disorder 3548 9007 F32.A [id number] DO Marli [place] [employer] [address] [place] [address] [place] [id number] 03/09/2021 15:37:58 03/09/2021 16:43:24 screening 648872674 Z36.9 Supervisio n of high risk with history of previous section done 2123224849 9106 O09.899 Gestation period, 7 weeks 07623626 Z3A.01 History of anemia 622873 002 Z86.2 [id number] MD Faustina Beach [employer] [address] [place] [address] [place] [id number] 03/22/2021 11:29:21 03/22/2021 12:29:33 Supervision of high risk with history of previous section done 3618335033 9106 O09.899 Reports 2 prior section and prior shoulder dystocia. 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 smear 3496344277 9105 R87.612 colpo 03/22/21 cw CIN1; no concerns for HSIL or malignancy , no bx indicated, advise PP pap/hpv and closae fu Past pregn michael history of gestational diabetes mellitus 955054350 Z86.32 Gestation period, 9 weeks 204717 Z3A.09 [id number] Joanne Gann CNM [facility] [employer] [address] [place] [address] [place] [id number] 03/24/2021 15:18:42 03/24/2021 16:20:48 Past history of gestational diabetes mellitus 174424505 Z86.32 Routine an tenatal care 038654825 Z34.90 Supervisio n of high risk with history of previous section done 8068483676 9106 O09.899 Body mass index 25-29 - overweight 907142867 Z68.29 Influenza vaccine needed 4425331831 106 Z23 screening 2437 15778 Z36.9 Cystic fib rosis screening 216031774 Z13.228 Asthma 771350187 J45.90 9 Deliveries by [id number] O82 Ex-smoker 8687748 Z87.89 1 High risk 4720 0007 O09.91 Shoulder d ystocia - delivered 719015868 O66.0 Gestation period, 10 weeks 80519926 Z3A.10 [id number] Joanne Gann CNM [facility] [employer] [address] [place] [address] [place] [id number] 04/20/2021 10:29:40 04/20/2021 12:14:54 screening 453520114 Z36.9 Deliveries by 408179133 O82 Past pregn michael history of gestational diabetes mellitus 297875945 Z86.32 Gestation period, 13 weeks 86792105 Z3A.13 Headache 06957993 R51.9 Microscopic hematuria 19 2665848 R31.29 High risk 4720 0007 O09.91 [id number] ROGERIO Lindsay [employer] [address] [place] [address] [place] [id number] 06/05/2021 08:58:03 06/05/2021 10:21:50 High risk 91378169 O09.92 Past pregn michael history of gestational diabetes mellitus 517046099 Z86.32 Overweight 729090904 E66 .3 Gestation period, 20 weeks 31314013 Z3A.20 screening 2437 61266 Z36.9 Dysuria 77047930 R30.9 Urinary tr act infection in 907047929 O23.12 [id number] MD Faustina Gallardo [employer] [address] [place] [address] [place] [id number] 05/23/2021 15:23:14 05/23/2021 15:52:51 screening 082036398 Z36.9 Deliveries by 505838827 O82 Past pregn michael history of gestational diabetes mellitus 198653805 Z86.32 Headache 69542927 R51.9 High risk 4720 0007 O09.91 Gestation period, 18 weeks 65086801 Z3A.18 Vaginal discharge 825834 006 N89.8 [id number] MD Faustina Gallardo [employer] [address] [place] [address] [place] [id number] 06/08/2021 13:24:30 06/08/2021 14:51:30 High risk 11821317 O09.92 Past pregn michael history of gestational diabetes mellitus 489411071 Z86.32 Gestation period, 20 weeks 25595413 Z3A.20 Cystic mal formation of posterior fossa 7902166075 9109 Q04.8 screening 2437 08563 Z36.9 [id number] ROGERIO Mora [employer] [address] [place] [address] [place] [id number] 07/10/2021 08:05:24 07/10/2021 11:32:21 screening 199797927 Z36.9 Deliveries by 557731335 O82 Past pregn michael history of gestational diabetes mellitus 150484351 Z86.32 High risk 4720 0007 O09.92 Gestation period, 25 weeks 28888868 Z3A.25 [id number] MD Faustina Gallardo [employer] [address] [place] [address] [place] [id number] 07/06/2021 13:50:24 07/06/2021 15:39:55 High risk 65380861 O09.92 Past pregn michael history of gestational diabetes mellitus 848439117 Z86.32 Cystic mal formation of posterior fossa 7665497524 9109 Q04.8 screening 2437 63785 Z36.9 Gestation period, 24 weeks 706361578 Z3A.24 Dysuria 75316378 R30.9 Itching of skin 38560349 0 L29.9 [id number] Julia Dickson, [employer] WORKER [facility] [employer] [address] [place] [address] [place] [address] 07/13/2021 15:39:57 07/13/2021 16:16:28 Gestation period, 25 weeks 45237853 Z3A.25 screening 2437 78285 Z36.9 Supervisio n of high risk with history of previous section done 2620330570 9106 O09.899 High risk 4720 0007 O09.92 Deliveries by 279562681 O82 Glucose to lerance test during - baby not yet delivered outside reference range 938884289 O99.810 Gestationa l diabetes mellitus 47942839 O24.419 failed 1 hr and 3 hr gtt [id number] Laurita Slade DO [facility] [employer] [address] [place] [address] [place] [id number] 08/31/2021 10:30:56 08/31/2021 11:45:17 Supervision of high risk with history of previous section done 3194328890 9106 O09.899 Gestationa l diabetes mellitus 29389236 O24.419 failed 1 hr and 3 hr gtt Gestation period, 32 weeks 3745517 Z3A.32 Tachycardia 4860387 R00. 0 [id number] Shandra Russo MS, RDN, LDN [facility] [employer] [address] [place] [address] [place] [address] 08/31/2021 10:30:56 08/31/2021 11:45:17 [id number] Juanita Vela MD [facility] [employer] [address] [place] [address] [place] [address] 09/07/2021 15:35:03 09/07/2021 17:13:51 Supervision of high risk with history of previous section done 5004899594 9106 O09.899 Gestationa l diabetes mellitus 97320689 O24.419 failed 1 hr and 3 hr gtt Tachycardia 8848357 R00. 0 Hemorrhoids 38927232 K64 .9 Heartburn 09569942 R12 Administra tion of diphtheria, pertussis, and tetanus vaccine 470095795 Z23 screening 2437 76065 Z36.9 [id number] MD Faustina Beach [employer] [address] [place] [address] [place] [id number] 09/15/2021 13:34:51 09/15/2021 15:27:47 Supervision of high risk with history of previous section done 4116103838 9106 O09.899 Reports 2 prior section and prior shoulder dystocia. 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 smear 1008979544 9105 R87.612 colpo 03/22/21 cw CIN1; no concerns for HSIL or malignancy , no bx indicated, advise PP pap/hpv and close fu Asthma 539074105 J45.90 9 Gestation period, 35 weeks 54838062 Z3A.35 Gestationa l diabetes mellitus 60064150 O24.410 Anemia 130246934 D64.9 9.9 34 wk on Fe Benign ges tational thrombocytopenia 799850917 D69.59 146 08/31: recheck with pats Reduced fe jl movement 895411800 O36.8199 [id number] MD Faustina Gallardo [employer]ER[employer] [address] [place] [address] [place] [id number] 09/22/2021 14:29:54 09/22/2021 16:48:13 Supervision of high risk with history of previous section done 8103196314 9106 O09.899 Gestationa l diabetes mellitus 06190133 O24.410 Benign ges tational thrombocytopenia 506325395 D69.59 146 08/31: recheck with pats Anemia 233529441 D64.9 9.9 34 wk on Fe 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 smear 8458358048 9105 R87.612 colpo 03/22/21 cw CIN1; no concerns for HSIL or malignancy , no bx indicated, advise PP pap/hpv and close fu Asthma 893308943 J45.90 9 Gestation period, 36 weeks 80483716 Z3A.36 screening 2437 50706 Z36.9 [id number] DO Marli [place] [employer]ER[employer]EDIT [employer] [address] [place] [address] [place] [id number] 10/03/2021 09:54:14 10/03/2021 12:12:52 Pre-surgery evaluation 602693446 Z01.818 Supervisio n of high risk with history of previous section done 4876943880 9106 O09.893 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 smear 6752260987 9105 R87.612 Depressive disorder 3548 9007 F32.A Benign ges tational thrombocytopenia 702524355 D69.59 Asthma 160808510 J45.90 9 Anemia 283243825 D64.9 Gestationa l diabetes mellitus 15902676 O24.410 Gestation period, 37 weeks 33061254 Z3A.37 Reduced fe jl movement 581058355 O36.8199 [id number] DO Faustina Wallis COMMERCIAL CREDIT ANALYST [address] [facility] [place] [id number] 10/27/2021 16:42:40 10/27/2021 17:00:48 state 83232347 Z39.2 Postoperative visit 1836 21297 Z09 Health Concerns Section Related Observation LastModified by Organization Detai ls LastModified Time None Recorded Concern Status LastModified by Organization Details LastModified Time None Recorded Advance Directives Directive N: Payers Insurance Date Sequence Insurance Name Policy Number Policy Dumont Covered Member ID Dumont Member ID Guarantor Name 05/09/2022 [place] [facility] [place] [place]ID[place] [facility] [id number] Ashley Singletary [id number] Ashley Singletary 06/01/2022 1 [id number] Ashley Singletary [id number] Ashley Singletary OBGyn Episode Ob Episode Information Episode Created Date Number of Fetuses Patient Bloodtype Patient rh Status Prepregnancy Weight lbs Domestic Partner Domestic Partner Phone Father Name Station Engineer Chief Status 02/28/20 21 1 O Positive 144 Pernell July (30)white [facility] CLOSED Fetus Data First Name Last Name Admitted to NICU Weight (g) Sex Living Outcome Pediatric Complications Fetus ID Race Codes Race Delivery Type 3997.27 95 F true Full Term 58684 Problems Problem Notes 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 Not working as of 35- week visit Prior care [place] - [x ]records pending were recived 03/2021 but closed- 2/o provider review per [facility] staff; I found and reviewed> 200 pages for all 3 deliveries 09/16/21 llc)01-04-2016, 39 wks- M, 7lbs 15oz, Vaginal reports SHOULDER DYSTOCIA ' per Records: 90 second SD resolved after posterior arm rotation, no injury , 07/17, limited maternal laceration, chorio in labor tx'd ([place] in labor for care there after initial care at [facility], 2 visits prevoius 2 d for possible labor at [facility] and dc'd, dissatisfied so took herself 3rd day to [facility]) 06-06-2017, 37 wks in labor, F, 7lbs 11oz, Pr LTCS delivery as had been planned due to G1 SD history(op note reviewed/lc)11-19-2019, 38 wks labor M, 7lbs, LT - limited PNC ,gdm no meds, vac extraction, swallowed fluid per pt not in op note (nl apgars and ph, respiratory problems in nursery, infant then maternal transfer to ), NICU x 2 wkULTRASOUNDs:02/27: JAMES by US at 6w3d/SMO CRL 0.58=6+3--> 8/12 sets JAEMS, off from LMP1: Viability confirmed/SMO; CRL 1.84= 8+/: GA/ZABRINA complete, female, CM dilated 8-10mm. CL reassuring. Given dilated posterior fossa, referral/KRA07/06: US EFW 56%tile, anatomy complete, CL adequate, kidneys mildly dilated L 4.8 R 4.2. CM normal 8mm. F/u in 8 weeks with UK/KRA08/31: 32 week UK - EFW 55%ile, 4#14oz, MEREDITH 10, BPP 8/8, UA 2.1, vertex, kidneys measure appropriately today - pyelectasis has resolved. Recommend weekly BPPs -seen on written paperwork but not noted on faxed note. sg09/07: MEREDITH 13.87cm, BPP 8/8/KRA09/15: bpp 8/8, aft 15.9, vtx anterior placenta09/22/21: BPP 8/8, MEREDITH 12cm, vtx/KRA[x] 37 wk growth - EFW 73.8%, MEREDITH 22cm, vtx, anterior placenta, BPP 10/16/SMO Problem Name Start Date End Date Resolution Snomed Code Not e Anemia 255908818 34 wk Hb 9 .9. FeSO4 Benign gestational thrombocytopenia 267876459 34 wk plt 1 46; 03/2021: 230 @ obhx' [ ] plan next repeat at 38 wk with Preop labs per JYOTI Gestational diabetes mellitus 64471100 Current diagnosed 29 weeks. Diet controlled as of 35 weeks Tachycardia 6543586 [ ] card io [email or web address] had had HOLTER at [place] wnl/sinus tachy Urinary tract infection in 06/05/2021 282980483 Rx Keflex; culture sent-negative Glucose tolerance test during - baby not yet delivered outside reference range 06/07/2021 679220023 1hr GTT 172[x] 3hr GTT ABNL 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 smear 63886015327126 02/10/21 LGSIL [x] ob colpo 03/22 likely cin1 advise pp pap /hpv poss repeat colpo with BX if either POS Past history of gestational diabetes mellitus 194265782 [x] Hemoglobin A1C -5.5%[x] Early 1 hr gtt @ 16 wksDiet controlled with 3rd screening 434841800 [x] CF-03/24/21-Negat marcellus[x] MT21 46XX[-] AFP--did not have Active immunization 59096951 [x ] Flu Vaccine-03/24/21[ x] Covid-Plans after 1st trimester[x] Tdap 09/07/21 Shoulder dystocia - delivered 1st G1, ~7#15 baby ok now (AWAIT RECORDS) see below Counseling for sterilization done [id number] [x] sig n papers at 28 wk DONE Deliveries by Elective C/S X 2 after shoulder dystocia with 1st delivery. Plan Rpt C/S with BS SCHED 10/13/21 with SMO Asthma 356321607 Albuterol inhaler PRN Depressive disorder 68683292 Zoloft 50 mg QD High risk 20090735 Prior C/S x2 Overweight 507527186 BMI 27.1 Ex-smoker 7456916 Quit 12/29 James Calculation Initial James Date Initial Exam Date Initial Exam Provider Initial Ultrasound Date Last Menstrual Period Date Ultra Sound Weeks Gestation 10/20/2021 02/27/2021 02/27/2021 01/05/2021 6 Eighteen To Twenty Week James Update Ultra Sound Date Fundal Height At Umbil Quickening Date Ultra Sound Latest Weeks Gestation Final James Confirmed By Final James Confirmed Date Final James Date Ultra Sound Latest Days Gestation 06/09/19 22 21 [email or web address] 03/22/2021 10/21/19 22 6 Pre- Flowsheet Flowsheet Date 02/27/2021 Levine Score Blood Edema Fundus Height Fundus Units Glucose Ketones Leukocytes Nitrite Labor Signs Protein Cervic Dilation Cervic Effacement Cervic Station 2+ none 6 wks none negative none Negative Other (see comments ) neg Type Weight in lbs Pre/Post Dialysis Refused With clothes 144.590418204736 BP Diastolic BP Location Tested BP Systolic BP Type 70 110 sitting Fetus Heart Rate Present A Present Fetus Movement Comments no lof, no vb, no ctx, no cr amps. pt c/o nausea and vomiting. / jyoung Reviewed US findings: JAMES 6 days off from LMP - change to 10/20/21. Patient relieved and excited. Discussed nausea and vomiting. Discussed options - sent B6 and doxylamine. F/U 1 to 2 weeks for OB hx and repeat US for viability/SMO Flowsheet Date 03/09/2021 Levine Score Blood Edema Fundus Height Fundus Units Glucose Ketones Leukocytes Nitrite Labor Signs Protein Cervic Dilation Cervic Effacement Cervic Station neg none 8 wks none negative none Negative Other (see comments ) neg Type Weight in lbs Pre/Post Dialysis Refused With clothes 144.548958507452 BP Diastolic BP Location Tested BP Systolic BP Type 68 106 sitting Fetus Heart Rate Present A Present Fetus Movement Comments pt states no VB, no LOF, no Cramping. pt has concerns about Iron due to anemic last . //EV Reassured with US. Fingerstick Hgb 12.6. Encouraged hydration and small meals. F/U with OB hx as soon as possible and OB PE in 3 to 4 weeks/SMO Flowsheet Date 03/22/2021 Levine Score Blood Edema Fundus Height Fundus Units Glucose Ketones Leukocytes Nitrite Labor Signs Protein Cervic Dilation Cervic Effacement Cervic Station neg none none negative trace Negative neg Type Weight in lbs Pre/Post Dialysis Refused Weight 148.975783065216 BP Diastolic BP Location Tested BP Systolic BP Type 72 116 Fetus Heart Rate Present Fetus Movement Comments OB colpo Doing well still so me n/v. //AA still really tire, spends most of day in bath tub tired from nausea meds but they help, no vb or pain, disc colpo procedure- cw diffuse CIN1, no biopsy indicated. Advised Pap/HPV and colpo with biopsy if either are positive. doesnt thinksWe have requested her [facility] [place] records several times, phone call put in today and they are working on it .qu re when can she sign TL paper, and who will do my CS- disc providers and scheduling. did not complete full hx but reviewed prior delivery hx as above: SD on GQ then states prior cs x 2 done at 38 wk BC of GDM no meds. last baby required vaccum at cs, swallowed fluid helicopter tranfer to [facility] x 2 wk, horrible experience .brief disc re CfFDNA tests, prob will want keep FRI to complete hx/labs; then ~ 2 wk for OBPE Flowsheet Date 03/24/2021 Levine Score Blood Edema Fundus Height Fundus Units Glucose Ketones Leukocytes Nitrite Labor Signs Protein Cervic Dilation Cervic Effacement Cervic Station 1+ none 10 wks none negative trace Negative none neg Type Weight in lbs Pre/Post Dialysis Refused Weight 148.002946746524 BP Diastolic BP Location Tested BP Systolic BP Type 62 104 sitting Fetus Heart Rate Present Fetus Movement A No Comments No vb, lof or unusual d/c. H ere for OB hx and lab work. Wants to do CF screening and mat 21 with her lab work. mdr//Dating is already established per US. She is experiences nausea but already has meds ordered. She gained 4#. Plan for [id number] and CF screen today with PNLabs. Hx of GDM with 3rd delivery. A1C and schedule early 1 hr gtt. PNV sent. Hx of Asthma brought on by cold weather. Albuterol inhaler RX sent. RTC 2 with OBPE. RH Flowsheet Date 04/20/2021 Levine Score Blood Edema Fundus Height Fundus Units Glucose Ketones Leukocytes Nitrite Labor Signs Protein Cervic Dilation Cervic Effacement Cervic Station 1+ none 14 wks none negative trace Positive Other (see comments ) neg Type Weight in lbs Pre/Post Dialysis Refused Weight 144.908662714244 BP Diastolic BP Location Tested BP Systolic BP Type 68 110 sitting Fetus Heart Rate Present A Present Fetus Movement A No Comments No vb, lof or unusual d/c. C /O pain lower groin/abd area worsens when she stands. Also c/o having frequent headaches tylenol helps some. Recently quit caffeine, discussed headaches associated with caffeine withdrawl. mdr//No FM yet. 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 C/O vomiting dynamic balancer if she hasn't eaten. C/O pelvic pain when she bend and stands up. Discussed round ligament pain. Enc maternity Belt russ at work. C/O LARIOS since she stopped using Caffeine. Discussed weaning off of Caffeine slowly. She c/o HB. Desires meds she took with other . She already has Rx for Famotidine at [facility]. RTC 2 wks with early 1 hr gtt due to hx of GDM with last . RH Flowsheet Date 05/23/2021 Levine Score Blood Edema Fundus Height Fundus Units Glucose Ketones Leukocytes Nitrite Labor Signs Protein Cervic Dilation Cervic Effacement Cervic Station trace none negative none Negative neg Type Weight in lbs Pre/Post Dialysis Refused With clothes 147.198308990789 BP Diastolic BP Location Tested BP Systolic BP Type 80 122 sitting Fetus Heart Rate Present A 145 Present Fetus Movement Comments no lof, no vb, no ctx, no cr amps. pt says she hasn't felt the baby move as much as before. /jyoung///Toluquila is here for leaking and DFM. On exam, normal discharge. No evidence of ROM with valsalva. Will send vaginitis swab. FHT reassuring. Discussed may not feel consistent movement for another few weeks. Return as scheduled. KRA Flowsheet Date 06/05/2021 Levine Score Blood Edema Fundus Height Fundus Units Glucose Ketones Leukocytes Nitrite Labor Signs Protein Cervic Dilation Cervic Effacement Cervic Station 3+ none 20 wks none negative trace Negative none neg Type Weight in lbs Pre/Post Dialysis Refused With clothes 148.080090069764 BP Diastolic BP Location Tested BP Systolic BP Type 72 110 sitting Fetus Heart Rate Present A 136 Fetus Movement A Yes Comments afm, early 1 hr gtt, trace l euks, large bld, c/o dysuria/frequency, neg nits, no lof, no vb.JRMhere for early 1hr; c/o dysuria; pos leuks and blood on UA; culture sent; rx keflex sent; enc to limit/avoid soda/sugary drinks and increase H20; denies further q/c; will schedule GA/Anatomy US LLOYD; dgt Flowsheet Date 06/08/2021 Levine Score Blood Edema Fundus Height Fundus Units Glucose Ketones Leukocytes Nitrite Labor Signs Protein Cervic Dilation Cervic Effacement Cervic Station neg none none negative none Negative neg Type Weight in lbs Pre/Post Dialysis Refused With clothes 147.536843133959 BP Diastolic BP Location Tested BP Systolic BP Type 72 108 sitting Fetus Heart Rate Present A 148 Present Fetus Movement A Yes Comments Pt states noVb, no LOF, no C TX. 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 //EV////GA/ZABRINA today shows mildly dilated posterior fossa. Cisterna Magna 8-10mm. Discussed [facility] referral and she agrees. CL reassuring. No VB, LOF, cramping. Return for 3 hour as scheduled, and then [facility] 07/06. Would recommend offering AFP at 06/15 3 hour visit given this was not offered today and no documentation of whether patients desires this or not. KRA Flowsheet Date 07/06/2021 Levine Score Blood Edema Fundus Height Fundus Units Glucose Ketones Leukocytes Nitrite Labor Signs Protein Cervic Dilation Cervic Effacement Cervic Station neg none negative none Negative neg Type Weight in lbs Pre/Post Dialysis Refused Weight 152.329985850891 BP Diastolic BP Location Tested BP Systolic BP Type 64 102 Fetus Heart Rate Present A Present Fetus Movement A Yes Comments No vb, no lof, neg leuk, neg nits, c/o digging at her skin. She saw something on fb that scared her about having itching and having a stillborn baby, and dysuria.//BW///She is unsure if she has a rash with the itching, but thinks she may. Rx hydrocortisone cream provided. She reports it is on her arms. Not her palms/soles of her feet. Discussed checking labs but cholestasis unlikely. Saw [facility] today and CM was normal! THis is reassuring. Baby does have dilated renal pelves, so they want f/u @ 32 weeks. REturn as scheduled for 3 hour gtt. KRA Flowsheet Date 07/10/2021 Levine Score Blood Edema Fundus Height Fundus Units Glucose Ketones Leukocytes Nitrite Labor Signs Protein Cervic Dilation Cervic Effacement Cervic Station trace none 25 wks none negative none Negative none neg Type Weight in lbs Pre/Post Dialysis Refused With clothes 152.388664681929 BP Diastolic BP Location Tested BP Systolic BP Type Fetus Heart Rate Present A 138 Present Fetus Movement A Yes Comments 3 hr gtt, no lof, no vb, no ctx, no cramps, afm. /jyoung. Ashley presents today for 3hr gtt. She has no complaints/needs today. No edema, no larios, no lof, vb, or unusual dc. No c/o itching, it is better. Pt stated she is ready to not be . Will sign tubal papers next visit. AD Flowsheet Date 07/13/2021 Levine Score Blood Edema Fundus Height Fundus Units Glucose Ketones Leukocytes Nitrite Labor Signs Protein Cervic Dilation Cervic Effacement Cervic Station neg none none negative none Negative none neg Type Weight in lbs Pre/Post Dialysis Refused With clothes 150.267137627740 BP Diastolic BP Location Tested BP Systolic BP Type 80 116 sitting Fetus Heart Rate Present Fetus Movement A Yes Comments here for glucose check educa tion. no lof, no vb, no ctx, no cramps, afm. /jyoung. PT is here to picker box operator blood glucose monitoring supplies and learn how to use them. Rock Crusher referal sent. Instructed pt on checking a fasting sugar and 2 hour postprandial sugars. Blood sugar logs given to pt and instructed her how to do them. RTC as scheduled and bring logs with you to each appt.AD Flowsheet Date 08/31/2021 Levine Score Blood Edema Fundus Height Fundus Units Glucose Ketones Leukocytes Nitrite Labor Signs Protein Cervic Dilation Cervic Effacement Cervic Station neg none negative none Negative neg Type Weight in lbs Pre/Post Dialysis Refused With clothes 155.18542190951 BP Diastolic BP Location Tested BP Systolic BP Type 76 120 sitting Fetus Heart Rate Present A Present Fetus Movement A Yes Comments Pt states pain with urinatio n and pressure and occasional CTX. Pt states she is SOB, dizzy, and her heart is always racing. 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 /EVReviewed [facility] u/s and recommendations. Reviewed BS logs today. One fasting elevated at 102, PP glucoses range from 100-159 . Plan for shop assistant discussion. Discussed increasing fruits and vegetables and decreasing soda and sweets. Refills of testing supplies given. Cardio referral given for heart complaints. Will sign sterilization paperwork today. RTO in 1 wk with glucose review and BPP. sg Flowsheet Date 08/31/2021 Levine Score Blood Edema Fundus Height Fundus Units Glucose Ketones Leukocytes Nitrite Labor Signs Protein Cervic Dilation Cervic Effacement Cervic Station Type Weight in lbs Pre/Post Dialysis Refused BP Diastolic BP Location Tested BP Systolic BP Type Fetus Heart Rate Present Fetus Movement Comments Flowsheet Date 09/07/2021 Levine Score Blood Edema Fundus Height Fundus Units Glucose Ketones Leukocytes Nitrite Labor Signs Protein Cervic Dilation Cervic Effacement Cervic Station trace none none negative none Negative neg 0cm 0 % -3 Type Weight in lbs Pre/Post Dialysis Refused With clothes 156.426385035194 BP Diastolic BP Location Tested BP Systolic BP Type 64 104 sitting Fetus Heart Rate Present A 132 Present Fetus Movement A Yes Comments us for bpp, afm, c/o crampin g the last few weeks getting worse, neg leuks, neg nits, trace bld, denies any urinary issues or vaginal discharge, no lof, no vb.JRM///Cvx closed. Discussed support belt for suspected round ligament pain. Has not scheduled rCS yet. Radio Tower Technician surgery referral placed for scheduling at 39 weeks. [facility] had recommended weekly BPPs. Performed today and 10/16 with normal MEREDITH. No indication for twice weekly NSTs at this time unless becomes A2GDM. TDAP given today and CBC collected. She is struggling with heartburn. Rx pepcid provided. She is also struggling with hemorrhoids. Rx prep H provided. She sees Dr. Umanzor next . I reviewed her glucose logs. Fastings 64-97 (1/6 elevated), PPB checked twice 77, 102, PPL 84- 138 (1/6 elevated), PPD 87-135 (1/5 elevated). Continue diet control. Return in 1 week with BPP. JYOTI Flowsheet Date 09/15/2021 Levine Score Blood Edema Fundus Height Fundus Units Glucose Ketones Leukocytes Nitrite Labor Signs Protein Cervic Dilation Cervic Effacement Cervic Station neg 35 cm none negative trace Negative Cramping neg 0c m 40% -3 Type Weight in lbs Pre/Post Dialysis Refused Weight 158.923016076248 BP Diastolic BP Location Tested BP Systolic BP Type 72 118 Fetus Heart Rate Present A Present Fetus Movement Comments US, c/o of cramping and decr ease movements.//AA. Did not have blood sugar logs today but stated have been normal. NST reactive to today uterine irritatbility might have come in anyway for cramping and dfm if i hadnt had appt ; I palpated FM during exam with accel following on NST during visit. ; US: BPP 10/16 pt did admit FM felt as seen with US, meredith 14, just not as much FM as usual . FMC reviewed; still w/o indication for 2/wk nsts but continue weekly BPP (?per [facility])(did not see in their last note 08/31) and BS evals. growth due at 37 wk; still ok for 39 wk RCS/bs as scheduled. cx check still closed, neg fluid or show. . reviewed prior labors x 2 prior to scheduled CS dates so could happen again!,labor precautions; notedPLT last week 146, no prior hx, recheck with PAT labs 10/03 ; if < 100 would recheck AM of surgery and have PLT available for her via BB ./ rto 09/22 BPP/nst/BS checkof note : during note completion after pt left I reviewed> 1hour >200 pages of outside GT records from all 3 deliveries that were in chart 03/12- closed but not signed per provider yet, summarized as above /llc Flowsheet Date 09/22/2021 Levine Score Blood Edema Fundus Height Fundus Units Glucose Ketones Leukocytes Nitrite Labor Signs Protein Cervic Dilation Cervic Effacement Cervic Station none negative none Negative Other (see comments ) neg Type Weight in lbs Pre/Post Dialysis Refused Weight 156.595426354504 BP Diastolic BP Location Tested BP Systolic BP Type 68 108 Fetus Heart Rate Present Fetus Movement A Yes Comments no lof, no vb, cramps at corey es, no other questions or concerns. cb///GBS collected. No VB, LOF. Good FM. BPP 10/16. NST Reactive, so 12/18. MEREDITH normal. Reports normal blood glucose values. F/u in 1 week. KRA Flowsheet Date 10/03/2021 Levine Score Blood Edema Fundus Height Fundus Units Glucose Ketones Leukocytes Nitrite Labor Signs Protein Cervic Dilation Cervic Effacement Cervic Station neg none 37 wks none negative trace Negative Other (see comments ) neg 1cm 50% -3 Type Weight in lbs Pre/Post Dialysis Refused With clothes 158.695645692078 BP Diastolic BP Location Tested BP Systolic BP Type 72 112 sitting Fetus Heart Rate Present A Present Fetus Movement A Decreased Comments H&P for scheduled c/s. c/o o f intermittent cramping on going for over 1 week. pelvic pressure. Decreased movements for past couple of days. Denies any lof or vb. Upper mid abdominal pain and vision changes. //AA Reports cramping and decreased movement =NST and US performed, reassuring. Reviewed labor precautions. Exam was benign. F/U in one week, to hospital for preop labs for c/s on 10/13/21/SMO Flowsheet Date 09/25/2021 Levine Score Blood Edema Fundus Height Fundus Units Glucose Ketones Leukocytes Nitrite Labor Signs Protein Cervic Dilation Cervic Effacement Cervic Station Type Weight in lbs Pre/Post Dialysis Refused BP Diastolic BP Location Tested BP Systolic BP Type Fetus Heart Rate Present Fetus Movement Comments [facility] triage - complaints of cramping and leaking urine - Neg Amnisure - urine showed ketones - given IVF and felt better. Follow up as scheduled./SMO Flowsheet Date 10/08/2021 Levine Score Blood Edema Fundus Height Fundus Units Glucose Ketones Leukocytes Nitrite Labor Signs Protein Cervic Dilation Cervic Effacement Cervic Station Type Weight in lbs Pre/Post Dialysis Refused BP Diastolic BP Location Tested BP Systolic BP Type Fetus Heart Rate Present Fetus Movement Comments L&D visit for irregular cont x. Cx /-3, vtx and posterior. She did not have cervical change during visit. Reassuring FHT. Reports BS are normal. Vistaril 50 mg po given. Home with labor precautions. Scheduled for c/s on Saturday. RH Menstrual History Last Menstrual Date Menses Monthly On Bcp Conception Prior Menses Frequency Hcg Plus Date Menarche Onset Age 1001/05/2021 Genetic Screening And Infection History Question Response Note Patient's Age Will Be 35 Yea rs Or Older At Estimated Date of Delivery false Thalassemia (Turkish, Mongolian, Mediterranean, Or Background): MCV < 80 false Neural Tube Defect (Meningom yelocele, Spina Bifida, Or Anencephaly) false Congenital Heart Defect false Down Syndrome true Distant cousin w /Downs [place] (eg, Restorationism, Cajun, Brazilian-Tuvaluan) f alse Jose Disease false Sickle Cell Disease Or Trait () false Hemophilia Or Other Blood Disorders false Muscular Dystrophy false Cystic Fibrosis false Paz's Chorea false Mental Retardation/Autism false If Yes, Was Person Tested For Fragile X? false Other Inherited Genetic Or Chromosomal Disorder false Maternal Metabolic Disorder (eg, Type 1 Diabetes, PKU) false Patient Or Baby's Father Had A Child With Defects Not Listed Above false Recurrent Loss, Or A Stillbirth false Medications (including Suppl ements, Vitamins, Herbs, OTC Drugs), Illicit/Recreational Drugs, Alcohol false If Yes, Agent(s) And Strength/Dosage false Any Other Genetic History false Live With Someone With TB Or Exposed To TB false Patient Or Partner Has History Of Genital Herpes false Rash Or Viral Illness Since Last Menstrual Perio d false History Of STD, Gonorrhea, Chlamydia, HPV, Syphi lis false Other Infection History false History of HIV false History of Hepatitis false Prior GBS-infected child false Recent Travel Outside of Country false Plans and Education First Trimester Discussed Date Discussion Item Discussion Note Discuss ed By 03/24/2021 Desire for planned mring4 03/24/2021 Alcohol aware mring4 03/24/2021 Illicit/recreational drugs aware m ring4 03/24/2021 Nutrition aware mring4 03/24/2021 Weight gain counseling mring 4 03/24/2021 Intimate Partner Violence mr ing4 03/24/2021 Unstable Housing mring4 03/24/2021 Use of any medicatio ns (including supplements, vitamins, herbs, or OTC drugs) mring4 03/24/2021 Avoidance of saunas or hot tubs aware mring4 03/24/2021 Indications for ultrasonography mring4 03/24/2021 Comminucation Barriers mring 4 03/24/2021 Anticipated course o f care aware mring4 03/24/2021 Toxoplasmosis precau tions (cats/raw meat) no cats mring4 03/24/2021 Sexual activity mring4 03/24/2021 Exercise mring4 03/24/2021 Tobacco/smoking cess ation counseling (ask, advise, assess, assist, and arrange) aware mring4 03/24/2021 Barriers to Care mring4 03/24/2021 Environmental/work hazards m ring4 03/24/2021 Depression/Anxiety ( should be performed at least once during period) mring4 03/24/2021 WIC/Hands Referral discussed mring4 03/24/2021 Nutrition counseling ; special diet; dietary precautions (mercury, listeriosis) mring4 03/24/2021 Dental Care / Refer to Dentist Imelda Quinn in [facility] is currently up to date mring4 03/24/2021 Seat belt use aware mring4 03/24/2021 Childbirth classes/h ospital facilities mring4 03/24/2021 breast mring4 03/24/2021 Screening for aneuploidy mri ng4 Second Trimester Discussed Date Discussion Item Discussion Note Discuss ed By 03/24/2021 Selecting a Care Provider Kidcare mring4 03/24/2021 Care Planning mri ng4 03/24/2021 Depression/Anxiety ( should be performed at least once during period) mring4 03/24/2021 Intimate Partner Violence mr ing4 03/24/[address] anning & Contraception Wants tubal! mring4 03/24/2021 Signs and Symptoms of Labor mring4 03/24/2021 Tobacco Cessation Co unseling (ask, advise, assess, assist, & arrange) mring4 Third Trimester Discussed Date Discussion Item Discussion Note Discuss ed By 03/24/2021 Labor Support Person(s) Pernell (fomauricio) mrin g4 03/24/2021 Feeding Intention breast mri ng4 03/24/2021 Labor Signs mring4 03/24/2021 Intimate Partner Violence mr ing4 03/24/2021 Pain Management Plans spinal for c/s mrin g4 03/24/2021 Movement Monitoring mr ing4 03/24/2021 Cervical Ripening/La bor Induction Counseling [facility] 03/24/2021 Trial of Labor Counseling [facility] 03/24/2021 Circumcision Preference yes mrin g4 03/24/2021 Signs and Symptoms of Preeclampsia mri4 03/24/2021 Mason Education (N ewborn screening, immunizations, jaundice, SIDS/Safe Sleeping, Car Seat) [facility] 03/24/2021 Depression [facility] 03/24/2021 Depression/Anxiety ( should be performed at least once during period) [facility] 03/24/2021 Postterm Counseling [facility] 03/24/2021 Infant Feeding breast [facility] 03/24/2021 Family Medical Leave or Disabilty Forms [facility] 03/24/2021 Tobacco Cessation Co unseling (ask, advise, assess, assist, & arrange) [facility] Delivery Information Delivery Date Delivery Type Labor Anesthesia Weeks Gestation Incision Type Labor Labor Length Hrs Delivered By Post Complications Tubal Sterilization Discharge Date Comments 2 None [facility] 39 Low Transvers e false Gladys Avendano DO None true 10/15/2021 Repeat c/s w/bilat salpingec mindy lst incper SMO Discharge Information Feeding Method Contraceptive Method Maternal HG B and HCT Levels Breast bilat salpingectomy 7.3 Ob Episode Information Episode Created Date Number of Fetuses Patient Bloodtype Patient rh Status Prepregnancy Weight lbs Domestic Partner Domestic Partner Phone Father Name Station Engineer Chief Status 04/24/19 20 1 CLOSED Fetus Data First Name Last Name Admitted to NICU Weight (g) Sex Living Outcome Pediatric Complications Fetus ID Race Codes Race Delivery Type 3486.76 1704 F Full Term [id number] James Calculation Initial James Date Initial Exam Date Initial Exam Provider Initial Ultrasound Date Last Menstrual Period Date Ultra Sound Weeks Gestation 0 Eighteen To Twenty Week James Update Ultra Sound Date Fundal Height At Umbil Quickening Date Ultra Sound Latest Weeks Gestation Final James Confirmed By Final James Confirmed Date Final James Date Ultra Sound Latest Days Gestation 0 0 Menstrual History Last Menstrual Date Menses Monthly On Bcp Conception Prior Menses Frequency Hcg Plus Date Menarche Onset Age Delivery Information Delivery Date Delivery Type Labor Anesthesia Weeks Gestation Incision Type Labor Labor Length Hrs Delivered By Post Complications Tubal Sterilization Discharge Date Comments 8 [facility] 37 false Nguyễn MATHEWS GDM, scheduled for history of shoulder dystocia Discharge Information Feeding Method Contraceptive Method Maternal HG B and HCT Levels Ob Episode Information Episode Created Date Number of Fetuses Patient Bloodtype Patient rh Status Prepregnancy Weight lbs Domestic Partner Domestic Partner Phone Father Name Station Engineer Chief Status 02/25/20 20 1 CLOSED Fetus Data First Name Last Name Admitted to NICU Weight (g) Sex Living Outcome Pediatric Complications Fetus ID Race Codes Race Delivery Type 3175.14 4 M Full Term [id number] James Calculation Initial James Date Initial Exam Date Initial Exam Provider Initial Ultrasound Date Last Menstrual Period Date Ultra Sound Weeks Gestation 0 Eighteen To Twenty Week James Update Ultra Sound Date Fundal Height At Umbil Quickening Date Ultra Sound Latest Weeks Gestation Final James Confirmed By Final James Confirmed Date Final James Date Ultra Sound Latest Days Gestation 0 0 Menstrual History Last Menstrual Date Menses Monthly On Bcp Conception Prior Menses Frequency Hcg Plus Date Menarche Onset Age Delivery Information Delivery Date Delivery Type Labor Anesthesia Weeks Gestation Incision Type Labor Labor Length Hrs Delivered By Post Complications Tubal Sterilization Discharge Date Comments 0 [facility] 39 false 0 Nguyễn MATHEWS GDM scheduled repeat Discharge Information Feeding Method Contraceptive Method Maternal HG B and HCT Levels Ob Episode Information Episode Created Date Number of Fetuses Patient Bloodtype Patient rh Status Prepregnancy Weight lbs Domestic Partner Domestic Partner Phone Father Name Station Engineer Chief Status 04/24/19 20 1 CLOSED Fetus Data First Name Last Name Admitted to NICU Weight (g) Sex Living Outcome Pediatric Complications Fetus ID Race Codes Race Delivery Type 3600.15 9704 M Full Term [id number] Vaginal James Calculation Initial James Date Initial Exam Date Initial Exam Provider Initial Ultrasound Date Last Menstrual Period Date Ultra Sound Weeks Gestation 0 Eighteen To Twenty Week James Update Ultra Sound Date Fundal Height At Umbil Quickening Date Ultra Sound Latest Weeks Gestation Final James Confirmed By Final James Confirmed Date Final James Date Ultra Sound Latest Days Gestation 0 0 Menstrual History Last Menstrual Date Menses Monthly On Bcp Conception Prior Menses Frequency Hcg Plus Date Menarche Onset Age Delivery Information Delivery Date Delivery Type Labor Anesthesia Weeks Gestation Incision Type Labor Labor Length Hrs Delivered By Post Complications Tubal Sterilization Discharge Date Comments 6 [facility]Ep id[facility] 39 false Nguyễn w michelle MATHEWS. Describes shoulder dystocia Discharge Information Feeding Method Contraceptive Method Maternal HG B and HCT Levels
== END 2024-10-01 23:59 | disposition home or self-care (01) ==
LOC: LAB.DROPOF 10-05 13:21
PROVIDERS: PCP Nurse Practitioner; Visit Provider Nurse Practitioner
DX: E55.9 Vitamin D deficiency, unspecified (principal); E03.9 Hypothyroidism, unspecified; R79.89 Other specified abnormal findings of blood chemistry
CPT/HCPCS: 80053; 82306; 84439; 84443

== ENCOUNTER 2024-11-26 15:00 | Outpatient (CLI) | payer MEDICAID, SELFPAY ==
[2024-11-26 19:56] LABS: Hematocrit 45.3 % (37.0-47.0); Hemoglobin 14.4 g/dL (12.2-16.2); Immature Granulocytes % 0.9 %; Mean Corpuscular HGB Conc 31.8 g/dL (31.8-35.4); Mean Corpuscular Hemoglobin 29.3 pg (27.0-31.2); Mean Corpuscular Volume 92.3 fl (81-99); Nucleated Red Blood Cells % 0 %; Platelet Count 234 K/mm3 (142-424); Red Blood Count 4.91 M/mm3 (4.20-5.40); Red Cell Distribution Width-SD 43.3 fL; White Blood Count 8.9 K/mm3 (4.8-10.8)
[2024-11-26 20:51] LABS: Albumin Level 4.6 g/dl (3.5-5.0); Chloride 101 mmol/L (98-107); Sodium 139 mmol/L (136-145)
[2024-11-26 20:52] LABS: Potassium 4.4 mmoL/L (3.5-5.1)
[2024-11-26 20:54] LABS: Alanine Aminotransferase 107 U/L (12-78); Albumin/Globulin Ratio 1.6 (1.1-1.8); Alkaline Phosphatase 111 U/L (38-126); Anion Gap 15.4 mEq/L (5-15); Aspartate Amino Transferase 75 U/L (14-36); Bilirubin,Total 0.5 mg/dl (0.2-1.3); Blood Urea Nitrogen 8 mg/dl (7-17); Calcium 9.7 mg/dl (8.4-10.2); Carbon Dioxide 27 mmol/L (22.0-30.0); Creatinine,Serum 0.70 mg/dl (0.52-1.04); Estimated Glomerular Filt Rate 99 ml/min (>60); GFR (African American) 120 ML/MIN (>60); Globulin 2.9 g/dL (1.3-3.2); Glucose 96 mg/dl (74-100); Lipase 69 U/L (23-300); Total Protein,Serum 7.5 g/dl (6.3-8.2)
[2024-11-26 21:02] LABS: Hemoglobin A1C 6.1 % (4.0-6.0)
[2024-11-26 21:03] LABS: Free T4 (Free Thyroxine) 0.90 ng/dl (0.78-2.19)
[2024-11-26 21:07] LABS: 25-OH Vitamin D, Total 21.3 ng/mL (30-100)
[2024-11-26 21:23] LABS: Thyroid Stimulating Hormone 5.96 uIU/mL (0.465-4.68)
[2024-11-26 21:43] LABS: Hepatitis C Ab Qual. W/ RFX NEGATIVE (Negative)
--- OUTSIDE RECORDS SUMMARY | 2024-11-27 11:51 | XMS_ITS | Encounter Summary ---
Author Organization [facility] Address [address] [place] [address] Care Team Providers Care Manager Six Sigma Name Role Phone Unavailable Primary Care Provider Unavailabl e Encounter Details Date Type Department Care Team (Late st Contact Info) Description 08/24/2021 Community [facility] [address] [place] [address] Juanita Vela MD [address] [place], [place] [id number] Gestational diabetes mellitus (GDM), antepartum, gestational diabetes [...]
--- OUTSIDE RECORDS SUMMARY | 2024-11-27 11:51 | XMS_ITS | Encounter Summary ---
Author Organization [facility] Address [address] [place] [address] Care Team Providers Care Glue Wheel Operator Name Role Phone Unavailable Primary Care Provider Unavailabl e Reason for Referral * Consultation (Routine) - Closed Specialty Diagnoses / Procedures Referred By Contac t Referred To Contact Obstetrics and Gynecology Diagnoses Other specified congenital malformations of brain (CMS/HCC) Juanita Vela MD [address] [place] [id number] Phone: tel: fax: Referral ID Status Reason Start Date Expiration Date V isits Requested Visits Authorized [id number] Closed Specialty Services Required 06/15/2021 12/15/2022 1 1 Encounter Details Date Type Department Care Team (Latest Contact Info) Description 06/15/2021 Community [facility] [address] [place] [address] Juanita Vela MD [address] [place] [id number] Other specified congenital malformations of brain [...]
--- OUTSIDE RECORDS SUMMARY | 2024-11-27 11:53 | XMS_ITS | Clinical Summary ---
Author Organization [facility] Address [address] [place] [address] Care Team Providers Care Tree Climber Name Role Phone Unavailable Primary Care Provider [...] of 3 - 4-dose series) 12/19/1999 11/21/1999 [facility]- SDOH Screenings 11/15/2013 [facility]-Adult SDOH Screenings 11/15/2013 [facility]-Pap Smear 11/15/2016 HPV Vaccines (1 - 3-dose SCDM series) 11/15/2022 [id number] Vaccine (1 - season) 2024 [facility]-Influenza Vaccine (#1) 11/09/202403/24, 02/23/2020 [facility]-DTaP,Tdap,and Td [...]
--- OUTSIDE RECORDS SUMMARY | 2024-11-27 11:53 | XMS_ITS | Clinical Summary ---
Author Organization [facility] Address [address] [place] [address] Phone Care Team Providers Care Box Maker Wood Name Role Phone No Pcp, Provider Not In [facility] Primary Care [facility] er Unavailable Allergies Active Allergy Reactions [...] 05/10/2022 fluticasone propionate (FLONASE) 50 mcg/actuation Nasl [place], SuspensionIndica tions:Acute cough,Head congestion 1 [place] by Nasal route daily. 1 Each 2 [...] pont N Living Complications:Shoulder Dysto sourav Delivery Location:Psychiatric Last Filed Vital Signs Vital Sign Reading [...] Smear 02/08/2019 02/09/2016 COVID-19 Vaccine ( season) 2024 Influenza Vaccine (#1) 2024 03/24/2021, 2019 DTaP/TDaP/Td [...] (04/20/2016 8:14 AM EST) Chlamydia trachomatis Negative [facility] Neisseria gonorrhoeae Negative [facility] Comment: Testing methodology is patients transporter mediated amplification (TMA) using the Aptima Combo 2 assay from [employer]. A negative result does not completely rule [...] characteristics of this test were validated by [facility]. This assay is FDA cleared to test the following specimens: clinician-collected endocervical, vaginal and male urethral swab specimens, patient collected vaginal specimens within a clinic setting, Thin Prep Specimens in PreservCyt Solution, and first-stream, unpreserved male urine specimens. Testing on female urine is not FDA approved by this methodology, but has been developed and validated by the [facility]. Detailed methodology is available upon request. Urine specimen (specimen) 04/20/2016 8:14 AM EST 04/21/2016 1:22 PM EST us Paige Aceves MD MICROBIOLOGY - [facility] ORDERABLES Final Result Performing Organization Address City/State/[facility] Co de Phone Number [facility] [address] [place] [address] from Last 3 Months or Most Recently Relevant to Health Maintenance Insurance Romana shaw dr [address] MEDICAID [place] MEDICAID Care Teams Box Maker Wood Relationship Specialty Start Date End Date No Pcp, Provider Not In Epic PCP - General 02/19/24
[2024-11-28 08:17] LABS: Hepatitis B Surface Antigen Negative (Negative)
== END 2024-11-26 23:59 | disposition home or self-care (01) ==
LOC: LAB.DROPOF 11-27 11:50
PROVIDERS: PCP Nurse Practitioner; Visit Provider Nurse Practitioner
DX: E03.9 Hypothyroidism, unspecified (principal); R73.01 Impaired fasting glucose; Z11.59 Encounter for screening for other viral diseases; R10.9 Unspecified abdominal pain; E55.9 Vitamin D deficiency, unspecified
CPT/HCPCS: 80053; 82306; 83036; 83690; 84439; 84443; 85025; 86803; 87340; 87389

== ENCOUNTER 2024-12-04 08:42 | Outpatient (CLI) | payer MEDICAID, SELFPAY ==
--- OUTSIDE RECORDS SUMMARY | 2013-08-07 10:05 | XMS_ITS | Continuity of Care Document ---
Author Organization [facility] Address [address] [place] [address] Phone Care Team Providers Care Customs Compliance Manager Name Role Phone Adria Sandhu MD Unavailable Unavailable Procedures Procedure Date Office/outpatient visit,[facility], [facility] 2013 Office/outpatient visit,[facility] 2013 X-ray exam of elbow, complete 4 Advance Directives Directive Yes / No Effective Date File Name No Information Encounters Encounter Description Practice Location Reason(s) For Visit Diagnoses Date Provider Providers Copied on Encounter Office/outpat ient visit,[facility], [address] [place], [address], tel:[phone] 00 [facility] No Information 0 4 Edson Adria. [address] [place] [address], [place], [id number] . tel:[phone] Office/outpat ient visit,[facility], [address] [place], [address], [place] tel:[phone] 00 [facility] No Information 4 Edson Adria. [address], [place], [id number] . tel:[phone] Family History Family Member Type Diagnosis Age At Onset No Information Payers Payer name Insurance type Covered constitution party ID Authoriza tivelma(s) [place] - [id number] 1 Social History Type Description Quantity Date Captured Comments Sex Female Smoking Status No Information Chief Complaint And Reason For Visit No Information Reason For Referral Reason For Referral No Information History Of Present Illness Encounter Date Complaint History Of Prese nt Illness No Information Functional Status Date Functional Assessmen t No Information Instructions Date Instruction Additional Infor mation No Information Assessments Type Assessment Date No Information Patient Care Teams Name Effective Dates (start - stop) Status Members No Information
--- NOTE | 2024-12-04 09:00 | US_ITS ---
FINAL REPORT TECHNIQUE: Sonographic images of the right upper quadrant were obtained. CLINICAL HISTORY: diarrhea, abdominal pain, postprandial sxs FINDINGS: PANCREAS: Tail obscured, head normal. LIVER: Fatty infiltrated.. No focal hepatic lesion. Portal vein is patent with normal direction of flow.. GALLBLADDER: Absent. COMMON DUCT: 5 mm. Normal for age. RIGHT KIDNEY: The right kidney measures 10.0 cm. There is no hydronephrosis, mass, or stone. FREE FLUID: None. IMPRESSION: Fatty liver. Reviewed, Interpreted and Dictated by Jennifer Waters MD Transcribed by Kae Membreno Authenticated and [facility]
--- OUTSIDE RECORDS SUMMARY | 2024-12-04 09:07 | XMS_ITS | Clinical Summary ---
Author Organization [facility] Address [address] [place] [address] Care Team Providers Care Die Repair Name Role Phone Unavailable Primary Care Provider [...] Vaccines (1 - 3-dose SCDM series) 11/15/2022 [id number] Vaccine (1 - season) 2024 [facility]-Influenza Vaccine [...]
--- OUTSIDE RECORDS SUMMARY | 2024-12-04 09:07 | XMS_ITS | Clinical Summary ---
Author Organization [facility] Address [address] [place] [address] Phone Care Team Providers Care Vocational Placement Specialist Name Role Phone No Pcp, Provider Not In [facility] Primary Care [facility] er Unavailable Allergies Active Allergy [...] 05/10/2022 fluticasone propionate (FLONASE) 50 mcg/actuation Nasl [place], SuspensionIndica tions:Acute cough,Head congestion 1 [place] by Nasal route daily. 1 Each 2 [...] pont N Living Complications:Shoulder Dysto sourav Delivery Location:[facility] Last Filed Vital Signs Vital [...] (04/20/2016 8:14 AM EST) Chlamydia trachomatis Negative [facility] Neisseria gonorrhoeae Negative [facility] Comment: Testing methodology is tent worker mediated amplification (TMA) using the Aptima Combo 2 assay from [employer]. A negative result does not completely rule [...] characteristics of this test were validated by [facility]. This assay is FDA cleared to test the following specimens: clinician-collected endocervical, vaginal and male urethral swab specimens, patient collected vaginal specimens within a clinic setting, Thin Prep Specimens in PreservCyt Solution, and first-stream, unpreserved male urine specimens. Testing on female urine is not FDA approved by this methodology, but has been developed and validated by the [facility]. Detailed methodology is available upon request. Urine specimen (specimen) 04/20/2016 8:14 AM EST 04/21/2016 1:22 PM EST us Paige Aceves MD MICROBIOLOGY - [facility] ORDERABLES Final Result Performing Organization Address City/State/[facility] Co de Phone Number [facility] [address] [place] [address] from Last 3 Months or Most Recently Relevant to Health Maintenance Insurance Romana shaw dr [address] MEDICAID [place] MEDICAID Care Teams Vocational Placement Specialist Relationship Specialty Start Date End Date No Pcp, Provider Not In Epic PCP - General 02/19/24
--- OUTSIDE RECORDS SUMMARY | 2024-12-04 09:07 | XMS_ITS | Encounter Summary ---
Author Organization [facility] Address [address] [place] [address] Care Team Providers Care Process Stripper Name Role Phone Unavailable Primary Care Provider Unavailabl e Reason for Referral * Consultation (Routine) - Closed Specialty Diagnoses / Procedures Referred By Contac t Referred To Contact Obstetrics and Gynecology Diagnoses Other specified congenital malformations of brain (CMS/HCC) Juanita Vela MD [address] [place] [address] Phone: tel: fax: Referral ID Status Reason Start Date Expiration Date V isits Requested Visits Authorized [id number] Closed Specialty Services Required 06/15/2021 12/15/2022 1 1 Encounter Details Date Type Department Care Team (Latest Contact Info) Description 06/15/2021 Community [facility] Community Practice [address] [place] [address] Juanita Vela MD [address] [place] [id number] Other specified congenital malformations of brain [...]
--- OUTSIDE RECORDS SUMMARY | 2024-12-04 09:07 | XMS_ITS | Encounter Summary ---
Author Organization [facility] Address [address] [place] [address] Care Team Providers Care Zoology Professor Name Role Phone Unavailable Primary Care Provider Unavailabl e Encounter Details Date Type Department Care Team (Late st Contact Info) Description 08/24/2021 Community [facility] Community Practice [address] [place] [address] Juanita Vela MD [address] [place], [place] [id number] Gestational diabetes mellitus (GDM), antepartum, gestational diabetes [...]
== END 2024-12-04 23:59 | disposition home or self-care (01) ==
LOC: RAD 08:43
PROVIDERS: PCP Nurse Practitioner; Visit Provider Nurse Practitioner
DX: K76.0 Fatty (change of) liver, not elsewhere classified (principal); R19.7 Diarrhea, unspecified; R10.9 Unspecified abdominal pain
CPT/HCPCS: 76705